=== PATIENT | male | born 1955 | race Caucasian/White ===

== ENCOUNTER 2022-01-24 16:10 | Outpatient (CLI) | payer MEDICARE, BC, SELFPAY ==
--- OUTSIDE RECORDS SUMMARY | 2022-01-24 09:35 | XMS_ITS | Encounter Summary ---
:1955 Author Organization [facility] Address [address] [place] [address] Care Team Providers Name Role Phone Unavailable Primary Care Provider Unavailable Reason for Referral Outpatient (Routine) - Closed Specialty Diagnoses / Procedures Referred By Contact Refer red To Contact Urology Manjeet Watts M.D. [facility] [address] [place] [address] [phone] Referral ID Status Reason Start Date Expiration Date Visits Requ ested Visits Authorized [id number] Closed 02/02/2021 02/02/2022 1 1 Scheduling Instructions Interested in surgery Encounter Details Date Type Department Care Team Description 02/02/2021 Orders Only Department of Urology in Carlita Watts M.D. [place], [place] [address] [place] [address] [place] [phone] (Wo rk) Social History Tobacco Use Types Packs/Day Years Used Date Smoking Tobacco: Never Smokeless Tobacco: Never Sex Assigned at Date Recorded Not on file documented as of this encounter Plan of Treatment Upcoming Encounters Date Type Specialty Care Team Description 01/30/2022 Clinical Communication Admitting/Central Scheduling 02/01/2022 Appointment Radiology Michael Unger D.O., M.S. [address] [place] [phone] 02/01/2022 Comprehensive Visit Orthopedic Surgery Michael Unger D.O., M.S. [address] [place] [address] Scheduled Referrals Name Type Priority Associated Diagnoses [facility] Outpatient Referral Routine Expect ed: visit (clinic) 02/02/2021 (Approximate), Expires: 02/03/2024 documented as of this encounter Visit Diagnoses Not on filedocumented in this encounter
--- OUTSIDE RECORDS SUMMARY | 2022-01-24 09:35 | XMS_ITS | Encounter Summary ---
:1955 Author Organization [facility] Address [address] [place] [address] Care Team Providers Name Role Phone Unavailable Primary Care Provider Unavailable Reason for Referral Outpatient (Routine) - Authorized Specialty Diagnoses / Procedures Referred By Contact Refer red To Contact Diagnoses Pain Wrist Right Michael Unger D.O., M.S. [facility] Procedures DX Wrist Right 2 Views [address] [place] [address] [phone] Referral ID Status Reason Start Date Expiration Date Visits V isits Requested Authorized [id number] Authorized 01/11/2022 01/11/2023 1 1 Encounter Details Date Type Department Care Team Description 01/11/2022 Orders Only Department of Michael Unger, Pain Wrist R ight Orthopedic Surgery in Hermila M.S. (Primary Dx) [place], [place] [address] [place] [address] [place] [phone] Social History Tobacco Use Types Packs/Day Years Used Date Smoking Tobacco: Never Smokeless Tobacco: Never Sex Assigned at Date Recorded Not on file documented as of this encounter Plan of Treatment Upcoming Encounters Date Type Specialty Care Team Description 01/30/2022 Clinical Communication Admitting/Central Scheduling 02/01/2022 Appointment Radiology Michael Unger D.O., M.S. [address] [place] [phone] 02/01/2022 Comprehensive Visit Orthopedic Surgery Michael Unger D.O., M.S. [address] [place] [address] Scheduled Orders Name Type Priority Associated Diagnoses Order S chedule DX Wrist Right 2 Imaging RAD - Routine (most Pain Wrist Right Expected: Views inpatients and all 2 outpatients) (Approximate), Expires: 2022 documented as of this encounter Visit Diagnoses Diagnosis Pain Wrist Right - Primary documented in this encounter
--- OUTSIDE RECORDS SUMMARY | 2022-01-24 09:35 | XMS_ITS | Encounter Summary ---
:1955 Author Organization [facility] Address [address] [place] [address] Care Team Providers Name Role Phone Unavailable Primary Care Provider Unavailable Reason for Visit Outpatient (Routine) - Closed Specialty Diagnoses / Procedures Referred By Contact Refer red To Contact Urology Manjeet Watts M.D. [facility] [address] [place] [phone] Referral ID Status Reason Start Date Expiration Date Visits Requ ested Visits Authorized [id number] Closed 02/02/2021 02/02/2022 1 1 Encounter Details Date Type Department Care Team Description 03/20/2021 Office Visit Department of Urology Khari Parisi Primar y Malignant in [place] Neoplasm Of Prostate [place] [address] [place] [address] (HCC) (Primary Dx) [address] [place] [phone] Social History Tobacco Use Types Packs/Day Years Used Date Smoking Tobacco: Never Smokeless Tobacco: Never Sex Assigned at Date Recorded Not on file documented as of this encounter H&P Notes Louise Lopez D.N.P., R.N. - 03/20/2021 3:30 PM CST SUBJECTIVE REQUESTING PROVIDER Manjeet Watts M.D. REASON FOR CONSULT Adenocarcinoma of the prostate, Patient seen on Dr. Mortensen service HISTORY OF PRESENT ILLNESS ??Mil??is a very pleasant 65-year-old gentleman who presents today for a 3rd opinion on management of his diagnosed favorable intermediate risk prostate malignancy. ??His urologic oncologic history is as follows: ?? 1.??May 31, 2014 PSA was 1.67 ?? 2.??Early 2020 PSA was 4.01 which was repeated and was 4.3 ?? 3.??June 20, 2020 Mr. Jaeger underwent a 12 core prostate biopsy locally. ??He was noted to have Haverhill 3 + 3 adenocarcinoma at the left lateral base, left lateral apex, and right lateral midgland samplings involving 70, 10, and 5% of the cores. ??He also had Haverhill 3 + 4 adenocarcinoma at the left base and left midgland samplings in 60 and 25% of the samples. ??There was perineural invasion noted at the left base sampling. ?? 4.??August 01, [address] of the abdomen pelvis which was negative for metastaticdisease. ??He was noted to have hepatic cysts. ?? 5.??Nuclear medicine bone scan August 16, 2020 was negative ?? 6.??August 22, 2020 patient had decipher testing which showed a score of 0.52 and placed him at intermediate risk for risk of progression (note this is after radical therapy in the form of either surgery or radiation. Not with surveillance). ?? 7.??Mr. Jaeger has had follow-up with his local urologist and a discussion was held on active surveillance. ??He is due to follow-up with his local urologist in 6 months. 8. He met with Dr. Watts 01/18/2021 for a second opinion on how to progress with treatment of his prostate cancer. Dr. Watts thought he would be an excellent surgical candidate for a RARP. Since his last visit here he did undergo a prostate MRI. This showed a 39 cc prostate gland and 2 concerning lesions for clinically significant prostate cancer. These lesions noted in the left posterior lateral base to mid gland peripheral zone and right posterior medial gland apex peripheral zone were assigned a PI-RADS 5 indicating very high likelihood of clinically significant cancer being present. Negative for lymph involvement and osseous lesions. He is scheduled for a RARP on 03/24/21 locally. He presents today for further discussion on treatmentoptions. He has not met with radiation oncology as they are looking to pursue surgery. He denies any significant lower urinary tract symptoms today. He does note that his urinary stream has gradually lessened in strength. He denies any urolithiasis, urinary tract infections, or prostatitis. He denies any urinary incontinence currently. He does endorse mild erectile dysfunction but is not treated for this currently. Patient reports that it is harder to achieve and maintain erections butthat he is able to be sexually active with his partner. He endorses nocturia x1. He also endorses some double voiding in the morning. He denies any fevers, chills, nausea, or vomiting. The following portions of the patient's history were reviewed and updated as appropriate: allergies,current medications, family history, medical history, social history, surgical history and problem list. OBJECTIVE PHYSICAL EXAM Constitutional: He appears well-developed and well-nourished. HENT: Head: Normocephalic. Eyes: Conjunctivae are normal. Pulmonary/Chest: Effort normal. Neurological: He is alert. Skin: Skin is warm. Psychiatric: He has a normal mood and affect. LABORATORY Lab Results Component Value Date PSA 5.6 (H) 01/18/2021 Lab Results Component Value Date CREATININE 1.14 05/18/2020 IMAGING EXAM: MR PROSTATE WITHOUT AND WITH IV CONTRAST ?? CLINICAL HISTORY: Jack score 3+4 prostate cancer.. Most Recent PSA 4.3 ng/mL in 2020 per EMR.. ?? PROSTATE: Volume: 39cc (PSA density 0.11) Exam quality: Good. Peripheral zone: Focal low signal intensity in the left posterior lateral base to mid gland (lesion 1). Poorly defined low signal intensity in the right posterior to posterior lateral mid gland to apex (lesion 2). Poorly defined underlying low signal intensity in the bilateral peripheral zone from medial gland to apex with mildly restricted diffusion (mean ADC value over 1000), PIRADS 2, which is abutting the external sphincter. Transition zone: Hyperplastic nodules. ?? Lesion # 1 Size: 1.6 x 1 x 1.8cm, 1.6cc Zone: Peripheral zone Location: Left posterior lateral at base to mid gland. (On image 2020 series 8) T2WI: Poorly defined focal low signal intensity (T2WI score 4) DWI: Moderate diffusion restriction. (ADC: 717, ) (DWI score 4) DCE: Positive. Overall category: PIRADS 5- Very high (clinically significant cancer is highly likely to be present). ?? Lesion # 2 Size: 1.2 x 0.8 x 1.5 cm, 0.6 cc Zone: Peripheral zone Location: Right posterior medial gland to apex extending to the left apex (on image 24 series 8) T2WI: Poorly defined low signal intensity (T2WI score 4) DWI: Mild diffusion restriction. (ADC: 830, ) (DWI score 4) DCE: Positive. Overall category: PIRADS 4- High (clinically significant cancer is likely to be present). ?? LOCAL STAGING: Capsule: Suspicious for capsular penetration on images 22 series 8 Neurovascular bundle invasion: Suspicious for neurovascular bundle invasion on images 22 series 8 Seminal vesicles invasion: Absent Other organ invasion: Poorly defined low signal intensity (PIRADS 2) is abutting the external sphincter. ?? LYMPH NODES: Negative for suspicious lymph node(s). ?? BONES: Negative for suspicious bone lesion(s). ?? OTHER FINDINGS: Sigmoid diverticulosis. Small fat-containing bilateral inguinal hernias. ?? PROSTATE MRI TECHNIQUE: PIRADS version 2.1 compliant. Multiparametric MRI of the prostate was performed at [address] with surface coil. High resolution T2WI, DWI/ADC, and DCE imaging with IV contrast performed. ?? IMPRESSION: PIRADS 5- Very high (clinically significant cancer is highly likely to be present). ASSESSMENT / PLAN #1 Primary malignant neoplasm of prostate It was a pleasure to meet Mr. Jaeger alongside Dr. Parisi in clinic today. We discussed that he hasa good plan in place to proceed with surgery locally. We discussed his MRI imaging and I reiterated the Jack scoring system. We discussed the 3 goals of surgery would be 1. oncologic control, 2. urologic control, and 3. Erectile function. Patient is in agreement and feels reassured after today's consultation in relation to treatment of his prostate cancer. He is going to proceed with surgery locally. All of his questions were answered to his satisfaction. Encouraged him to reach out in the future should he have any further urologic needs. ER AUTOMOTIVE TECHNICIAN Khari Parisi M.D. - 03/20/2021 3:30 PM CST #1 Primary Malignant Neoplasm Of Prostate (HCC) I have met the patient and discussed the issues at hand. I agree with the documentation provided by my colleague on the team. I have discussed the recommendations with the patient and answered all of the patient???s questions. Treatment options were discussed with the patient in detail including surgical and nonsurgical options, as well as active surveillance. Risks associated with surgery were discussed, including incontinence and impotence. The patient is interested in proceeding with surgery and will have it done locally. ER AUTOMOTIVE TECHNICIAN documented in this encounter Plan of Treatment Upcoming Encounters Date Type Specialty Care Team Description 01/30/2022 Clinical Communication Admitting/Central Scheduling 02/01/2022 Appointment Radiology Michael Unger D.O., M.S. [address] [place] [phone] 02/01/2022 Comprehensive Visit Orthopedic Surgery Michael Unger D.O., M.S. [address] [place] [address] documented as of this encounter Visit Diagnoses Diagnosis Primary Malignant Neoplasm Of Prostate ( HCC) - Primary documented in this encounter
--- OUTSIDE RECORDS SUMMARY | 2022-01-24 09:35 | XMS_ITS | Clinical Summary ---
:1955 Author Organization [employer] [email or web address] [place] [address] Care Team Providers Name Role Phone Guillaume Eason MD Primary Care Provider Allergies No known active allergies Medications Medication Sig Dispensed Refills Start Date End Date Status hydrochlorothiazide TAKE 1 TABLET BY 30 tablet 0 09/07/2015 Active (HCTZ) 25 mg MOUTH ONCE DAILY. tabletIndications: HTN (hypertension) simvastatin (ZOCOR) 20 Take 20 mg by 0 11/19/2019 Active mg tablet mouth at bedtime. acetaminophen (Tylenol Take 500-1,000 mg 0 Active Extra Strength) 500 mg by mouth every 6 tablet hours if needed. Max acetaminophen dose: 4000mg in 24 hrs. meloxicam 15 mg Take 1 Tablet (15 0 03/24/2021 Active tabletIndications: mg) by mouth once Prostate cancer (HC) daily. OK to resume taking 5 days after surgery if urine is clearing. oxyCODONE (ROXICODONE) 5 Take 1 Tablet (5 12 Tablet 0 03/24/20 21 Active mg immediate release mg) by mouth every tabletIndications: 4 hours if needed Prostate cancer (HC) for Pain. sennosides-docusate Take 1 Tablet by 30 Tablet 0 03/24/2021 Active (SENOKOT S) (8.6-50 mg) mouth 2 times tabletIndications: daily if needed Prostate cancer (HC) for Constipation. Active Problems Problem Noted Date Adenomatous colon polyp 07/08/2014 Overview: Colonoscopy 06/2014 polyps repeat in 5 ye ars Colonoscopy 01/2020 diverticulosis, repe at in 5 years Cervical stenosis of spinal canal 06/17/2014 Tendon laceration 03/12/2011 Lipoma of other skin and subcutaneous tissue 1 Resolved Problems Problem Noted Date Resolved Date S/P colonoscopy 01/02/2002 07/08/2014 Immunizations Name Administration Dates Next Due COVID-19 vaccine (Amiigo 02/16/2021, 07/05/2020, 30mcg/0.3mL) PF, MDV Influenza, IIV3 (Age >=3 years) 04/18/2012, 03/17/2007 Influenza, IIV4 04/10/2014 Tdap 03/08/2011 Family History Medical History Relation Name Comments Hypertension Brother 1 Cancer Brother 2 throat ca-non sm oker Heart Disease Father Other Father lung cancer Stroke Father TIA Hypertension Mother Stroke Mother hemorrhagic Relation Name Status Comments Brother 1 Brother 2 Father Mother Social History Tobacco Use Types Packs/Day Years Used Date Never Smoker Smokeless Tobacco: Never Used Tobacco Cessation: Counseling Given: Yes Alcohol Use Standard Drinks/Week Comments Yes 2.5 (1 standard drink = 0.6 oz pure alco hol) on weekends Alcohol Habits Answer Date Recorded How often do you have a drink containing 4 or more times a w mcgrath 05/25/2020 alcohol? How many drinks containing alcohol do you have 1 or 2 05/25/2020 on a typical day when you are drinking? How often do you have six or more drinks on one Never 05/25/2020 occasion? Comment: on weekends 05/31/2014 Sex Assigned at Date Recorded Not on file Obstetrics History Last Filed Vital Signs Vital Sign Reading Time Taken Comments Blood Pressure 137/76 03/25/2021 7:51 AM DYE WORKER Pulse 93 03/25/2021 7:51 AM DYE WORKER Temperature 36.9 ??C (98.5 ??F) 03/25/2021 7:51 AM DYE WORKER Respiratory Rate 16 03/25/2021 10:00 AM DYE WORKER Oxygen Saturation 91% 03/25/2021 10:00 AM DYE WORKER Inhaled Oxygen Concentration - - Weight 95.7 kg (211 lb) 03/24/2021 10:00 AM DYE WORKER Height 182.9 cm (6') 03/24/2021 10:00 AM DYE WORKER Body Mass Index 28.62 03/24/2021 10:00 AM DYE WORKER Plan of Treatment Health Maintenance Due Date Last Done Comments Depression screening for age 12+ 1965 BMI (ht and wt on same day) for 09/23/1971 age 18+ Zoster (shingles) series for age 0609/23/2003 50+ (1 of 2) Medicare Wellness for age 65+ 2018 Pneumococcal series for age 65+ (1 2018 - PCV) Lipids for age 45-75 05/31/2019 05/31/2014, 08/13/2011 Tetanus booster 03/08/2021 03/08/2011 COVID-19 vaccine series (4 - 06/19/2021 02/16/2021, 021, Booster for Pfizer series) 06/14/2020 Influenza for age 65+ 12/21/2021 04/10/2014, 04/18/2012, 03/17/2007 Colonoscopy through age 75 02/08/2025 02/09/2020, 0, 02/09/2020, Additional history exists Tdap Completed 03/08/2011 Hepatitis C screening for age Completed 05/31/2014 16-79 Results Not on filefrom Last 3 Months Insurance Payer Benefit Plan / Subscriber ID Effective Dates Phone Addre ss Type Group MEDICARE PART B MEDICARE PART B [id number] 2018-Presen ATTN: CLAIMS - HB USE ONLY HB ONLY t [address] [facility] [place] [phone] [place] [employer] [place] [id number] 2020-Presen [address] [address] [place], [place] MR PB ONLY [phone] [employer] [place] [place] [id number] 2020-[place] [address] [address] [place], [place] HB ONLY [id number] [phone] (Home) [place] [phone] Advance Directives Latest Code Status on File Code Status Date Activated Date Inactivated Comments Full Code 03/24/2021 9:36 AM 03/25/2021 6:55 PM Code Status Discussion: Unable to Assess Preferences, Provid er to review later Care Teams Jack Strip Assembler Relationship Specialty Start Date End Date Guillaume Eason MD PCP - General Family Practice 12/15/19 [address] [place] [address]
--- OUTSIDE RECORDS SUMMARY | 2022-01-24 09:35 | XMS_ITS | Encounter Summary ---
:1955 Author Organization [facility] Address [address] [place] [address] Care Team Providers Name Role Phone Unavailable Primary Care Provider Unavailable Encounter Details Date Type Department Care Team Description 12/16/2020 [facility] Malignant AND DOTTIE Carcamo M.D. Neoplasm Of Prostate 1999 [facility] [address] [facility] (HCC) (Primary Dx) [place] [address] [place], [place] [phone] [address] Social History Tobacco Use Types Packs/Day Years Used Date Smoking Tobacco: Never Assessed Sex Assigned at Date Recorded Not on file documented as of this encounter Plan of Treatment Upcoming Encounters Date Type Specialty Care Team Description 01/30/2022 Clinical Communication Admitting/Central Scheduling 02/01/2022 Appointment Radiology Michael Unger D.O., M.S. [address] [place] [address] 02/01/2022 Comprehensive Visit Orthopedic Surgery Michael Unger D.O., M.S. [address] [place] [phone] documented as of this encounter Visit Diagnoses Diagnosis Primary Malignant Neoplasm Of Prostate ( HCC) - Primary documented in this encounter
--- OUTSIDE RECORDS SUMMARY | 2022-01-24 09:35 | XMS_ITS | Encounter Summary ---
:1955 Author Organization [facility] Address [address] [place] [address] Care Team Providers Name Role Phone Unavailable Primary Care Provider Unavailable Reason for Visit Reason Comments Pre-scheduling Questionnaire Encounter Details Date Type Department Care Team Description 01/01/2022 Clinical Department of Prescheduling, Pre-scheduli ng Communication Orthopedic Surgery Provider Question naire in [place], [place] [address] [place] [phone] Social History Tobacco Use Types Packs/Day Years Used Date Smoking Tobacco: Never Smokeless Tobacco: Never Sex Assigned at Date Recorded Not on file documented as of this encounter Miscellaneous Notes Telephone Encounter - Tatianna Eisenberg - 01/01/2022 10:47 AM CDT Hand Pre-Scheduling Questionnaire documented in this encounter Plan of Treatment Upcoming Encounters Date Type Specialty Care Team Description 01/30/2022 Clinical Communication Admitting/Central Scheduling 02/01/2022 Appointment Radiology Michael Unger D.O., M.S. [address] [place] [phone] 02/01/2022 Comprehensive Visit Orthopedic Surgery Michael Unger D.O., M.S. [address] [place] [phone] documented as of this encounter Visit Diagnoses Not on filedocumented in this encounter
--- OUTSIDE RECORDS SUMMARY | 2022-01-24 09:35 | XMS_ITS | Clinical Summary ---
:1955 Author Organization [facility] Address [address] [place] [address] Care Team Providers Name Role Phone Unavailable Primary Care Provider Unavailable Source Comments Patient records contain information from all sites at [facility]. For routine questions regarding patient records, call [phone] during business hours, M-F 8:00 AM - 5:00 PM Central Time. Record requests for emergency care only can be directed to [phone] at any time.[facility] Allergies No known active allergies Encounters Date Type Specialty Care Team Description 01/11/2022 Orders Only Orthopedic Surgery Michael Unger, Pain Wr ist Right D.O., M.S. (Primary Dx) 01/01/2022 Clinical Orthopedic Surgery Prescheduling, [facility] Communication Provider Questionnaire from Last 3 Months Social History Tobacco Use Types Packs/Day Years Used Date Smoking Tobacco: Never Smokeless Tobacco: Never Sex Assigned at Date Recorded Not on file Last Filed Vital Signs Vital Sign Reading Time Taken Comments Blood Pressure - - Pulse 63 01/25/2021 8:55 AM CDT Temperature - - Respiratory Rate 16 01/25/2021 8:55 AM CDT Oxygen Saturation 97% 01/25/2021 8:55 AM CDT Inhaled Oxygen Concentration - - Weight 96.1 kg (211 lb 13.8 oz) 01/25/2021 7:00 AM CDT Height - - Body Mass Index - - Plan of Treatment Upcoming Encounters Date Type Specialty Care Team Description 01/30/2022 Clinical Communication Admitting/Central Scheduling 02/01/2022 Appointment Radiology Michael Unger, Jayne., M.S. [address] [place] [address] 02/01/2022 Comprehensive Visit Orthopedic Surgery Michael Unger D.O., M.S. [address] [place] [address] Health Maintenance Due Date Last Done Comments CT Colonography 1955 Cologuard 1955 Colonoscopy 1955 Colorectal Cancer Screening 1955 FIT 1955 Hepatitis C Screening 1955 Zoster Vaccines (1 of 2) 09/23/2003 Depression Screening (Annual 04/22/2021 PHQ-2) Fall Risk Screen (Annual) 04/22/2021 COVID-19 Vaccine (5 - Booster for 01/18/2022 11/23/2021, , Pfizer series) 07/05/2020, Additional history exists Influenza Vaccine (#1) 2022 03/21/2021, 02/06/2019, 02/25/2018, Additional history exists Creatinine Level 03/25/2022 03/25/2021, 05/18/2020 Potassium Level 03/25/2022 03/25/2021, 05/18/2020 Sodium Level 03/25/2022 03/25/2021, 05/18/2020 Fasting Glucose for Diabetes 03/25/2024 03/25/2021, 021 Screening DTaP,Tdap,and Td Vaccines (3 - Td 03/21/2031 03/21/2021, or Tdap) Pneumococcal vaccine (65+ years) Completed 12/11/2019, 01/2019 Insurance Payer Benefit Plan Subscriber ID Effective Phone Address Typ e / Group Dates MEDICARE MEDICARE A [id number] 2018-Pres [address] [place] [address] BLUE [employer]OSS [employer] [id number] 2020-Pres [phone] [address] Cost Share BLUE SHIELD BLUE COST ent [phone] [place] [address] [phone] (Home) [place] [phone]
--- OUTSIDE RECORDS SUMMARY | 2022-01-24 09:35 | XMS_ITS | Encounter Summary ---
:1955 Author Organization [facility] Address [address] [place] [address] Care Team Providers Name Role Phone Unavailable Primary Care Provider Unavailable Encounter Details Date Type Department Care Team Description 02/14/2021 Orders Only Department of Urology Manjeet Watts, Prim nichole Malignant in [facility] Neoplasm Of Prostate [place] 200 [facility] (HCC) (Primary Dx) 200 [place] [phone] Social History Tobacco Use Types Packs/Day Years Used Date Smoking Tobacco: Never Smokeless Tobacco: Never Sex Assigned at Date Recorded Not on file documented as of this encounter Plan of Treatment Upcoming Encounters Date Type Specialty Care Team Description 01/30/2022 Clinical Communication Admitting/Central Scheduling 02/01/2022 Appointment Radiology Michael Unger D.O., M.S. 200 [place] [address] 02/01/2022 Comprehensive Visit Orthopedic Surgery Michael Unger D.O., M.S. [address] [place] [phone] documented as of this encounter Visit Diagnoses Diagnosis Primary Malignant Neoplasm Of Prostate ( HCC) - Primary documented in this encounter
--- OUTSIDE RECORDS SUMMARY | 2022-01-24 09:35 | XMS_ITS | Encounter Summary ---
:1955 Author Organization [facility] Address [address] [place] [address] Care Team Providers Name Role Phone Unavailable Primary Care Provider Unavailable Encounter Details Date Type Department Care Team Description 02/01/2021 Documentation Department of Urology in Carlita Watts M.D. [place], [place] [address] [place] [address] [place] [phone] (Wo rk) Social History Tobacco Use Types Packs/Day Years Used Date Smoking Tobacco: Never Smokeless Tobacco: Never Sex Assigned at Date Recorded Not on file documented as of this encounter Progress Notes Manjeet Watts M.D. - 02/01/2021 6:00 PM CDT I spoke with Mr. 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 I recommended he pursue treatment. He will consider his options and let me know if he wishes to pursue surgery or requests radiation oncology consult. documented in this encounter Plan of Treatment Upcoming Encounters Date Type Specialty Care Team Description 01/30/2022 Clinical Communication Admitting/Central Scheduling 02/01/2022 Appointment Radiology Michael Unger D.O., M.S. [address] [place] [phone] 02/01/2022 Comprehensive Visit Orthopedic Surgery Michael Unger D.O., M.S. [address] [place] [phone] documented as of this encounter Visit Diagnoses Not on filedocumented in this encounter
--- OUTSIDE RECORDS SUMMARY | 2022-01-24 09:35 | XMS_ITS | Encounter Summary ---
:1955 Author Organization [facility] Address [address] [place] [address] Care Team Providers Name Role Phone Unavailable Primary Care Provider Unavailable Reason for Referral MRI/CAT/PET Scan (Routine) - Closed Specialty Diagnoses / Procedures Referred By Contact Refer red To Contact Radiology Diagnoses Primary Malignant Neoplasm Of Prostate (HCC) Manjeet Watts M.D. [facility] Procedures MR Prostate without and with IV Contrast 200 [place], [place] [phone] Referral ID Status Reason Start Date Expiration Date Visits Requ ested Visits Authorized [id number] Closed 01/18/2021 01/18/2022 1 1 Reason for Visit MRI/CAT/PET Scan (Routine) - Closed Specialty Diagnoses / Procedures Referred By Contact Refer red To Contact Radiology Diagnoses Primary Malignant Neoplasm Of Prostate (HCC) Manjeet Watts M.D. [facility] Procedures MR Prostate without and with IV Contrast 200 [place] [address] Referral ID Status Reason Start Date Expiration Date Visits Requ ested Visits Authorized [id number] Closed 01/18/2021 01/18/2022 1 1 Encounter Details Date Type Department Care Team Description 01/25/2021 Hospital Encounter Department of Manjeet Watts Primar y Malignant Radiology, Kimmy Corcoran Neoplasm Of Prostate [facility], in 200 [facility] (HCC) [place], [place] [address] [facility] [address] [place], [place] [phone] (Work) [phone] Social History Tobacco Use Types Packs/Day Years Used Date Smoking Tobacco: Never Smokeless Tobacco: Never Sex Assigned at Date Recorded Not on file documented as of this encounter Last Filed Vital Signs Vital Sign Reading Time Taken Comments Blood Pressure - - Pulse 63 01/25/2021 8:55 AM CDT Temperature - - Respiratory Rate 16 01/25/2021 8:55 AM CDT Oxygen Saturation 97% 01/25/2021 8:55 AM CDT Inhaled Oxygen Concentration - - Weight 96.1 kg (211 lb 13.8 oz) 01/25/2021 7:00 AM CDT Height - - Body Mass Index - - documented in this encounter Nursing Notes Mushtaq Lee R.N. - 01/25/2021 7:45 AM CDT Glucagon Administration Screening: Does patient have an allergy to glucagon or lactose (e.g. hives, difficulty breathing, anaphylaxis, necrolytic migratory erythema)? Note: nausea vomiting, bloating, and diarrhea are common and expected adverse effects of glucagon and/or lactose intolerance. NO If no???continue. Does patient have a history of insulinoma or phenochromocytoma? NO If no???continue. If yes, discusswith Radiologist. Does patient have diabetes? NO If no.. continue.. If yes??? initiate nurse initiated protocol to order POC blood glucose . If yes and insulin dependent, provide patient with Glucagon Injections if you Have Diabetes card. What is patient's glucose? Not diabetic - less than 70 treat f using Hypoglycemia Nurse Initiated Protocol - between 70 and 300 administer medication as ordered. - greater than 300 notify radiologist and do not administer medication. Is patient safe to receive Glucagon YES If yes.. Administer Glucagon as outlined in order. Does the patient need to remain NPO following scan for additional appointments today? NO Radiology Minimal Sedation Screening (Ativan) Is the patient 18 and older: YES if yes... continue If no, did Radiologists approve administration and was verbal consent obtained from parents? Able to take oral meds? YES If yes... continue Does the patient have a responsible adult accompanying them? YES - If yes: Name of accompanying adult Jailyn Phone number of accompanying adult [phone] Does patient have an allergy to lorazepam or other benzodiazepines? NO If no... continue Does patient have active respiratory issues? NO If no...continue If yes notify radiologist for direction prior to continuing. Has the patient taken any other benzodiazepines, antidepressants, or sedating medications today? NO If no...continue If yes, ask how long they have been taking the medication(s) and notify radiologist for direction prior to continuing. Does patient have a hx of narrow angle glaucoma or gaging or choking? NO If no... Continue If yes notify radiologist for direction prior to continuing. Is patient scheduled for a MR proctogram or neuro functional MR? NO if no... continue Is the patient scheduled for a MR guided breast biopsy? NO - if yes, obtain consent prior to administration. Is patient or ? NO If no... continue Does patient have other appointments today that may require attention to detail or informed consent?NO If no... continue If yes, call other area to determine if administration is ???ok?? . documented in this encounter Plan of Treatment Upcoming Encounters Date Type Specialty Care Team Description 01/30/2022 Clinical Communication Admitting/Central Scheduling 02/01/2022 Appointment Radiology Michael Unger D.O., M.S. [address] [place] [phone] 02/01/2022 Comprehensive Visit Orthopedic Surgery Michael Unger D.O., M.S. [address] [place] [phone] documented as of this encounter Procedures Procedure Name Priority Date/Time Associated Comments Diagnosis MR PROSTATE RAD - Routine 01/25/2021 8:51 Primary Malignant Result s for this WITHOUT AND WITH (most inpatients AM CDT Neoplasm Of procedu re are in IV CONTRAST and all Prostate (HCC) the results outpatients) section. documented in this encounter Results MR Prostate without and with IV Contrast (01/25/2021 8:51 AM CDT) Anatomical Region Laterality Modality Pelvis, Abdominal RST LOS, Abdominal ARZ LOS, Abdominal N/A Magnetic Resonance FLA LOS Specimen (Source) Anatomical Collection Method Collection Time Re ceived Time Location / / Volume Laterality 01/25/2021 9:18 AM CDT Impressions 01/25/2021 10:27 AM CDT PIRADS 5- Very high (clinically significant cancer is highly likely to be present). Narrative 01/25/2021 10:27 AM CDT EXAM: MR PROSTATE WITHOUT AND WITH IV CONTRAST CLINICAL HISTORY: Butler score 3+4 pros birch cancer.. Most Recent PSA 4.3 ng/mL in 2020 per EMR.. PROSTATE: Volume: 39cc ?(PSA density 0.11) Exam quality: Good. Peripheral zone: Focal low signal intens ity in the left posterior lateral base to mid gland (lesion 1). Poorly defined low signal intensity in the right posterior to posterior lateral mid gland to apex (lesion 2). Poorly defined underlying low signal intensity in the b ilateral peripheral zone from medial gland to apex with mildly restricted dif fusion (mean ADC value over 1000), PIRADS 2, which is abutting the external sphincter. Transition zone: Hyperplastic nodules. Lesion # 1 Size: 1.6 x 1 x 1.8cm, 1.6cc Zone: Peripheral zone Location: Left posterior lateral at base to mid gland. (On image 1 series 8) T2WI: Poorly defined focal low signal in tensity (T2WI score 4) DWI: Moderate diffusion restriction. (AD C: 717, ) (DWI score 4) DCE: Positive. Overall category: PIRADS 5- Very high (c linically significant cancer is highly likely to be present). Lesion # 2 Size: 1.2 x 0.8 x 1.5 cm, 0.6 cc Zone: Peripheral zone Location: Right posterior medial gland t o apex extending to the left apex (on image 24 series 8) T2WI: Poorly defined low signal intensit y (T2WI score 4) DWI: Mild diffusion restriction. (ADC: 8 30, ) (DWI score 4) DCE: Positive. Overall category: PIRADS 4- High (clinic ally significant cancer is likely to be present). LOCAL STAGING: Capsule: Suspicious for capsular penetra tion on images 22 series 8 Neurovascular bundle invasion: Suspiciou s for neurovascular bundle invasion on images 22 series 8 Seminal vesicles invasion: Absent Other organ invasion: ??Poorly defined l ow signal intensity (PIRADS 2) is abutting the external sphincter. LYMPH NODES: Negative for suspicious lym ph node(s). BONES: Negative for suspicious bone lesi on(s). OTHER FINDINGS: Sigmoid diverticulosis. Small fat-containing bilateral inguinal hernias. PROSTATE MRI TECHNIQUE: PIRADS version 2 .1 compliant. Multiparametric MRI of the prostate was performed at [address] [facility] with s urface coil. High resolution T2WI, DWI/ADC, and DCE imaging with IV contras t performed. Procedure Note Del Rodriguez M.D. - 01/25/2021 EXAM: MR PROSTATE WITHOUT AND WITH IV CO NTRAST CLINICAL HISTORY: Butler score 3+4 pros birch cancer.. Most Recent PSA 4.3 ng/mL in 2020 per EMR.. PROSTATE: Volume: 39cc (PSA density 0.11) Exam quality: Good. Peripheral zone: Focal low signal intens ity in the left posterior lateral base to mid gland (lesion 1). Poorly defined low signal intensity in the right posterior to posterior lateral mid gland to apex (lesion 2). Poorly defined underlying low signal intensity in the b ilateral peripheral zone from medial gland to apex with mildly restricted dif fusion (mean ADC value over 1000), PIRADS 2, which is abutting the external sphincter. Transition zone: Hyperplastic nodules. Lesion # 1 Size: 1.6 x 1 x 1.8cm, 1.6cc Zone: Peripheral zone Location: Left posterior lateral at base to mid gland. (On image 2020 series 8) T2WI: Poorly defined focal low signal in tensity (T2WI score 4) DWI: Moderate diffusion restriction. (AD C: 717, ) (DWI score 4) DCE: Positive. Overall category: PIRADS 5- Very high (c linically significant cancer is highly likely to be present). Lesion # 2 Size: 1.2 x 0.8 x 1.5 cm, 0.6 cc Zone: Peripheral zone Location: Right posterior medial gland t o apex extending to the left apex (on image 24 series 8) T2WI: Poorly defined low signal intensit y (T2WI score 4) DWI: Mild diffusion restriction. (ADC: 8 30, ) (DWI score 4) DCE: Positive. Overall category: PIRADS 4- High (clinic ally significant cancer is likely to be present). LOCAL STAGING: Capsule: Suspicious for capsular penetra tion on images 22 series 8 Neurovascular bundle invasion: Suspiciou s for neurovascular bundle invasion on images 22 series 8 Seminal vesicles invasion: Absent Other organ invasion: Poorly defined low signal intensity (PIRADS 2) is abutting the external sphincter. LYMPH NODES: Negative for suspicious lym ph node(s). BONES: Negative for suspicious bone lesi on(s). OTHER FINDINGS: Sigmoid diverticulosis. Small fat-containing bilateral inguinal hernias. PROSTATE MRI TECHNIQUE: PIRADS version 2 .1 compliant. Multiparametric MRI of the prostate was performed at [address] [facility] with s urface coil. High resolution T2WI, DWI/ADC, and DCE imaging with IV contras t performed. IMPRESSION: PIRADS 5- Very high (clinically signific ant cancer is highly likely to be present). Manjeet ROLAND MRI PROCEDURES documented in this encounter Visit Diagnoses Diagnosis Primary Malignant Neoplasm Of Prostate ( HCC) documented in this encounter Administered Medications Inactive Administered Medications - up to 3 most recent administrations Medication Order MAR Action Action Date Dose Rate Site gadoterate meglumine 0.5 mmol/mL Given 01/25/2021 8:45 AM CDT 20 mL (376.9 mg/mL) injection 1.6-20 mL (DOTAREM) 1.6-20 mL, intravenous, Once in imaging, contrast, Starting on Sat01/25/21 at 0744, For 1 dose, Imaging Protocol Orders, Dose per Radiant Medication Guidelines glucagon injection 0.5-1 mg Given 01/25/2021 8:25 AM CDT 1 mg Left Upper Arm (GlucaGen) (Back) 0.5-1 mg, subcutaneous, Once, On Sat01/25/21 at 0745, For 1 dose, Imaging Protocol Orders LORazepam tablet 0.5 mg (ATIVAN) Given 01/25/2021 7:55 AM CDT 1 mg 0.5 mg, sublingual, As needed, anxiety, Starting on Sat01/25/21 at 0744, For 4 doses, Imaging Protocol Orders, 1 mg by mouth once as needed for anxiety related to radiology study. May administer 0.5 mg dose if patient prefers. May repeat every 15 minutes if anxiety persists (2 mg maximum dose). sodium chloride (PF) 0.9 % injection 1-1 00 mL Given 01/25/2021 8:45 AM CDT 20 mL 1-100 mL, intravenous, Once, On Sat01/25/21 at 0745, For 1 dose, Imaging Protocol Orders documented in this encounter
--- OUTSIDE RECORDS SUMMARY | 2022-01-24 09:35 | XMS_ITS | Encounter Summary ---
:1955 Author Organization [facility] Address [address] [place] [address] Care Team Providers Name Role Phone Unavailable Primary Care Provider Unavailable Reason for Visit Reason Comments Phone Contact Encounter Details Date Type Department Care Team Description 01/30/2021 Clinical Communication Department of Urology Keith Watts, Phone Contact in [facility] [address] [facility] [address] [place] [phone] Social History Tobacco Use Types Packs/Day Years Used Date Smoking Tobacco: Never Smokeless Tobacco: Never Sex Assigned at Date Recorded Not on file documented as of this encounter Miscellaneous Notes Telephone Encounter - Rosalina Betts - 01/30/2021 11:43 AM CDT Patient calling because he missed your call last week. He said he is not available today to get a call as he is flying home from [place]. Please call him tomorrow. Best number to call is [phone] Thank you documented in this encounter Plan of Treatment Upcoming Encounters Date Type Specialty Care Team Description 01/30/2022 Clinical Communication Admitting/Central Scheduling 02/01/2022 Appointment Radiology Michael Unger D.O., M.S. [address] [place] [phone] 02/01/2022 Comprehensive Visit Orthopedic Surgery Michael Unger D.O., M.S. [address] [place] [phone] documented as of this encounter Visit Diagnoses Not on filedocumented in this encounter
--- OUTSIDE RECORDS SUMMARY | 2022-01-24 09:35 | XMS_ITS | Encounter Summary ---
:1955 Author Organization [facility] Address [address] [place] [address] Care Team Providers Name Role Phone Unavailable Primary Care Provider Unavailable Encounter Details Date Type Department Care Team Description 12/19/2020 [facility] Malignant AND DOTTIE Carcamo M.D. Neoplasm Of Prostate 1999 [facility] [address] [email or web address]] (HCC) (Primary Dx) [place] [address] [place], [place] [phone] [address] Social History Tobacco Use Types Packs/Day Years Used Date Smoking Tobacco: Never Smokeless Tobacco: Never Sex Assigned at Date Recorded Not on file documented as of this encounter Plan of Treatment Upcoming Encounters Date Type Specialty Care Team Description 01/30/2022 Clinical Communication Admitting/Central Scheduling 02/01/2022 Appointment Radiology Michael Unger D.O., M.S. [address] [place] [phone] 02/01/2022 Comprehensive Visit Orthopedic Surgery Michael Unger D.O., M.S. [address] [place] [phone] documented as of this encounter Visit Diagnoses Diagnosis Primary Malignant Neoplasm Of Prostate ( HCC) - Primary documented in this encounter
--- OUTSIDE RECORDS SUMMARY | 2022-01-24 09:35 | XMS_ITS | Encounter Summary ---
:1955 Author Organization [facility] Address [address] [place] [address] Care Team Providers Name Role Phone Unavailable Primary Care Provider Unavailable Reason for Referral MRI/CAT/PET Scan (Routine) - Closed Specialty Diagnoses / Procedures Referred By Contact Refer red To Contact Radiology Diagnoses Primary Malignant Neoplasm Of Prostate (HCC) Manjeet Watts M.D. [facility] Procedures MR Prostate without and with IV Contrast [place], [place] [id number] Referral ID Status Reason Start Date Expiration Date Visits Requ ested Visits Authorized [id number] Closed 01/18/2021 01/18/2022 1 1 Reason for Visit Appointment Request (Routine) - Closed Specialty Diagnoses / Procedures Referred By Contact Refer red To Contact Urology Diagnoses Primary Malignant Neoplasm Of Prostate (HCC) Referral ID Status Reason Start Date Expiration Date Visits Requ ested Visits Authorized [id number] Closed 08/28/2020 08/28/2021 1 1 Encounter Details Date Type Department Care Team Description 01/18/2021 Comprehensive Visit Department of Manjeet Watts Prima ry Malignant Neoplasm Of Prostate (HCC) (Primary Dx); Urology in [place] Herniorrhaphy Inguinal Status Post; [place], [facility] [place], [place] [address] [facility] [id number] [place], [place] [phone] (Work) [phone] Social History Tobacco Use Types Packs/Day Years Used Date Smoking Tobacco: Never Smokeless Tobacco: Never Sex Assigned at Date Recorded Not on file documented as of this encounter H&P Notes Tatianna Valadez APRN, C.N.P. - 01/18/2021 9:00 AM CDT SUBJECTIVE REASON FOR CONSULT Adenocarcinoma of the prostate HISTORY OF PRESENT ILLNESS Mr. Jaeger is a very pleasant 65-year-old gentleman who presents to Dr. Watts's clinic today for a2nd opinion on management of his newly diagnosed favorable intermediate risk prostate malignancy. His urologic oncologic history is as follows: 1. May 31, 2014 PSA was 1.67 2. Early 2020 PSA was 4.01 which was repeated and was 4.3 3. June 20, 2020 patient underwent a 12 core prostate biopsy locally. He was noted to have Jack 3+ 3 adenocarcinoma at the left lateral base, left lateral apex, and right lateral midgland samplingsinvolving 70, 10, and 5% of the cores. He also had Winchester 3 + 4 adenocarcinoma at the left base andleft midgland samplings in 60 and 25% of the samples. There was perineural invasion noted at the left base sampling. 4. August 01, [address] of the abdomen pelvis which was negative for metastatic disease. He was noted to have hepatic cysts. 5. Nuclear medicine bone scan August 16, 2020 was negative 6. August 22, 2020 patient had decipher testing which showed a score of 0.52 and placed him at intermediate risk. 7. Patient has had follow-up with his local urologist and a discussion was held on active surveillance. He is due to follow-up with his local urologist in 6 months. He has not visited with a radiation oncologist. Patient denies any history of prior radiation therapy. He does not take any aspirin-containing products. He does take 2 Advil at night to help with his musculoskeletal complaints. Patient has not had any MRI imaging of the prostate. He denies hesitancy. He does note a gradual slowing of his urinary stream. He denies urolithiasis, urinary tract infections, or prostatitis. Patientdenies urinary incontinence. He describes mild erectile dysfunction but does not treat this. He states that it is little harder to achieve and maintain. He denies fevers, chills, nausea, or vomiting. The following portions of the patient's history were reviewed and updated as appropriate: allergies,current medications, family history, medical history, social history, surgical history and problem list. REVIEW OF SYSTEMS Genitourinary: Positive for erectile dysfunction. The following systems were negative: Constitutional, Skin, Eyes, ENT, CV, Respiratory, GI, , Musculoskeletal, Neuro Past Medical History: Diagnosis Date ??? Fracture Rib Multiple Closed Initial Bilateral from fall approximately 1 year ago ??? Hyperlipidemia ??? Hypertension NOS ??? Primary Malignant Neoplasm Of Prostate (HCC) 06/20/2020 Jack 3+4 prostate ca with PSA 4 range ??? Snoring Past Surgical History: Procedure Laterality Date ??? BUNIONECTOMY Left ??? CATARACT EXTRACTION, BILATERAL ??? EXCISION LIPOMA multiple on trunk, hips arms ??? LAPAROSCOPIC INGUINAL HERNIA REPAIR Right ??? PROSTATE BIOPSY 06/20/2020 SOCIAL HISTORY Retired [employer] Lifelong non-smoker ETOH: Few drinks a few times per month. FAMILY HISTORY Maternal uncle is alive at age 83 or 84. He was diagnosed with prostate cancer in his low 60s and underwent brachytherapy. He has recently been found to have biochemical recurrence and is being followed locally. Patient denies any family history of lethal prostate cancer. He does noted younger brother has elevated PSA and is being followed. His older brother is status post what sounds to be TURP and tissue samplings were benign for malignancy. Patient denies any other family history of genitourinary malignancies. OBJECTIVE PHYSICAL EXAM Constitutional: He is oriented to person, place, and time. He appears well- developed and well-nourished. HENT: Head: Normocephalic. Eyes: No scleral icterus. Pulmonary/Chest: Effort normal. Abdominal: Abdomen does not display distension. Musculoskeletal: He exhibits no tenderness. Neurological: He is alert and oriented to person, place, and time. Skin: No rash noted. Psychiatric: He has a normal mood and affect. His behavior is normal. Judgment and thought content normal. Rectum: With good sphincter tone Prostate: Approximately 40-50 g in size which is without nodularity or areas of induration. This is nontender to palpation. LABORATORY Lab Results Component Value Date PSA 5.6 (H) 01/18/[address] of the abdomen and pelvis August 01, 2020: Negative for metastatic disease. He is noted tohave hepatic cysts. Outside nuclear medicine bone scan August 16, 2020: Negative for bony metastasis. He is noted to havemultiple rib fractures that are healing. ASSESSMENT / PLAN #1 Winchester 3 + 4, clinical T1c adenocarcinoma the prostate with prebiopsy PSA in the 4 range It was my pleasure to meet Mr. Jaeger in conjunction with Dr. Watts. We discussed his diagnosis andprognosis in detail. We reviewed his outside electronic records. I reiterated the Jack scoring system. Patient is noted to have a favorable intermediate risk prostate malignancy on tissue samplings from outside biopsy June 20, 2020. We discussed his treatment options include active surveillance, radiation therapy, or surgical intervention. I reviewed our active surveillance protocol. Patient has not had MRI imaging of the prostateto date. He did have a negative nuclear medicine bone scan as well as CT of the abdomen and pelvis in July 2020 as noted above. He also had a decipher test which placed him at intermediate risk. I reviewed that there is an 18% chance of metastasis while watching intermediate risk disease over 15 years. We briefly discussed radiation therapy and the quality of life changes that occur with that. Patienthas not visited with a radiation oncologist. If he has any interest in visiting with our radiation oncology team we would be happy to facilitate an appointment for him. We had a detailed discussion regarding the roger and post operative education of a open and robotic radical prostatectomy. He was informed that the goals of surgery would be (1) oncological control (2)maintain his ability to control his urine and (3) to preserve erectile function. We discussed the quality of life changes that occur with surgical intervention that include urinary incontinence as wellas erectile dysfunction. The risks, benefits, and alternatives were discussed as well as the perioperative period with the patient which include infection, bleeding, damage to adjacent organs as well as risk of anesthesia which are but not limited to stroke, blood clots, myocardial infarction, or even . He was educated to cease any aspirin or NSAIDs 7-10 days prior to the procedure. I reviewed hospitalization stay is 1-2 nights. I discussed that he would have an indwelling Edward catheter for 7-10 days postoperatively. We discussed lifting restrictions which is nothing greater than 10 lb for 6 weeks. Patient would need a JIMMY, EKG, preoperative blood work, COVID PCR nasal swab and listing appointment if he would decide to proceed with surgery. Please see Dr. Watts's note for full details on discussion and plan of care. Contact information was provided. Signed by: Tatianna Valadez APRN, C.N.PMaykel 01/18/2021 10:09 AM CDT Manjeet Watts M.D. - 01/18/2021 9:00 AM CDT Chief complaint: Prostate cancer History of present illness Mr. Jaeger is a very pleasant 65-year-old gentleman who presents today for a 2nd opinion on management of his newly diagnosed favorable intermediate risk prostate malignancy. His urologic oncologic history is as follows: ?? 1. May 31, 2014 PSA was 1.67 ?? 2. Early 2020 PSA was 4.01 which was repeated and was 4.3 ?? 3. June 20, 2020 Mr. Jaeger underwent a 12 core prostate biopsy locally. He was noted to have Jack 3 + 3 adenocarcinoma at the left lateral base, left lateral apex, and right lateral midgland samplings involving 70, 10, and 5% of the cores. He also had Jack 3 + 4 adenocarcinoma at the left base and left midgland samplings in 60 and 25% of the samples. There was perineural invasion noted at the left base sampling. ?? 4. August 01, [address] of the abdomen pelvis which was negative for metastatic disease. He was noted to have hepatic cysts. ?? 5. Nuclear medicine bone scan August 16, 2020 was negative ?? 6. August 22, 2020 patient had decipher testing which showed a score of 0.52 and placed him at intermediate risk for risk of progression (note this is after radical therapy in the form of either surgery orradiation. Not with surveillance). ?? 7. Mr. Jaeger has had follow-up with his local urologist and a discussion was held on active surveillance. He is due to follow-up with his local urologist in 6 months. He presents today for discussion of management options. His PSA today is 5.6 per Mr. Jaeger has not had any MRI imaging of the prostate. He has mild slowing of his stream but has no other irritative or obstructive voiding symptoms. He does note mild erectile dysfunction that he does not currently treat. He states that his erections are a bit harder to achieve and maintain. The following portions of the patient's history were reviewed and updated as appropriate: allergies,current medications, family history, medical history, social history, surgical history and problem list. Past Medical History: Diagnosis Date ??? Fracture Rib Multiple Closed Initial Bilateral from fall approximately 1 year ago ??? Hyperlipidemia ??? Hypertension NOS ??? Primary Malignant Neoplasm Of Prostate (HCC) 06/20/2020 Jack 3+4 prostate ca with PSA 4 range ??? Snoring Past Surgical History: Procedure Laterality Date ??? BUNIONECTOMY Left ??? CATARACT EXTRACTION, BILATERAL ??? EXCISION LIPOMA multiple on trunk, hips arms ??? LAPAROSCOPIC INGUINAL HERNIA REPAIR Right ??? PROSTATE BIOPSY 06/20/2020 SOCIAL HISTORY Retired [employer] Lifelong non-smoker ETOH: Few drinks a few times per month. METS >4, ECOG 0 ?? FAMILY HISTORY -Maternal uncle is alive at age 83 or 84. He was diagnosed with prostate cancer in his low 60s and underwent brachytherapy. He has recently been found to have biochemical recurrence and is being followed locally. -No family history of lethal prostate cancer. -He does note younger brother has elevated PSA and is being followed. His older brother is status post what sounds to be TURP and tissue samplings were benign for malignancy. Medications: No anticoagulation (2 advil at night) Review of Systems: Constitutional: No fever, fatigue, anorexia, night sweats. HEENT: No vision changes or abnormal changes in smell, no headaches. Resp: No shortness of breath or cough. Cardio: No chest pain, palpitations. GI: No abdominal pain, changes in bowel movement. : See HPI. MSK: No weakness, paresthesias, or joint pains. Neuro: No gait ataxia. Physical Exam General: No acute distress. HEENT: Anicteric. Normocephalic. Respiratory: Non-labored breathing. Abdomen: Soft. Nontender. Nondistended. Extremities: No rash or bruising. Neurologic: Gross motor activity intact. No ataxia. Skin: Intact. No bruising. Psych: Normal mood and affect. Answers questions appropriately. Assessment and Plan It was a pleasure to meet with Mr. Jaeger for discussion of management of his prostate cancer. Based on PSA and his pathology, he would fall into a intermediate risk group. He has not had an MRI of the prostate to characterize the local regional extent of his disease. We reviewed options for management including surveillance, radiation, and surgery. The risks and benefits of these procedures were reviewed with the patient. Oncologic outcomes associated with procedures were also reviewed. Given his excellent functional status, lack of significant competing health risks, and intermediate risk disease, I would recommend some form of active treatment. I did caution him that the DECIPHER test which he had done indicates risk for progression after radical treatment, not while on active surveillance. Therefore his intermediate risk status for progression is based on if he were to proceed with some form of active treatment as opposed active surveillance. Similar would be the case for prostate cancer related mortality. He would be an excellent candidate for robotic radical prostatectomy with bilateral pelvic lymph node dissection as we would achieve good cancer control as well as have good opportunity to preserve hisfunctional status. Moreover, I reviewed that with some prostate cancer disease states, multiple modalities of treatment inclusive of surgery, radiation, and hormone deprivation are often necessary to achieve durable cancer control. In this case, I would recommend surgery be sequenced first as in a large subset of patients, no additional therapy is needed, but in the event additional salvage therapiesare needed, there is less detriment to functional outcomes with radiation administered following surgery compared to if surgery were to follow radiation. We discussed risks, benefits, and alternatives to robotic assisted radical prostatectomy with pelviclymphadenectomy. Risks discussed included but were not limited to bleeding, infection, damage to surrounding structures, anesthesia, postoperative erectile dysfunction and stress urinary incontinence. The perioperative course was also discussed which would involve a catheter in place for between 7-10 days depending on whether bladder neck reconstruction was necessary. With respect to the functional outcomes, I do expect him to have excellent return of urinary controlwhich can take upwards of 1 year but should start being seen within a few months. We discussed the importance of Kegel exercises. With respect to erectile function, we would want an MRI to understand the local regional extent of his disease and the anatomic relationship to the neurovascular bundles. However, based on his biopsy, my presumption is that he would not have any evidence of extraprostatic extension in which case we will be performing a bilateral nerve-sparing, which would aid in recovery of his erectile function. We discussed that we would place him on low-dose tadalafil and encouraged intimacy to help support recovery of his erectile function. After discussion, he is leaning towards surgery but 1st would like to characterize the distribution of his disease with an MRI of the prostate. This is a very reasonable strategy as it will offer him more information regarding the distribution of his disease. I also offered him a consultation with Radiation Oncology. I will contact him with the results of the MRI. If he does elect to proceed with surgery, prior to surgery we will obtain the following: -Preoperative blood work in the form of CBC, BMP, PT, PTT -Pre-surgical COVID screening -JIMMY -Listing visit with me >45 minutes spent during consultation for [id number] counseling as well as and review of records and imaging documented in this encounter Plan of Treatment Upcoming Encounters Date Type Specialty Care Team Description 01/30/2022 Clinical Communication Admitting/Central Scheduling 02/01/2022 Appointment Radiology Michael Unger D.O., M.S. [address] [place] [address] 02/01/2022 Comprehensive Visit Orthopedic Surgery Michael Unger D.O., M.S. [address] [place] [address] documented as of this encounter Results MR Prostate without and [...] WITHOUT AND WITH IV CONTRAST CLINICAL HISTORY: Winchester score 3+4 pros birch cancer.. Most Recent [...] at base to mid gland. (On image 202 series 8) T2WI: Poorly defined focal low [...] AND WITH IV CO NTRAST CLINICAL HISTORY: Winchester score 3+4 pros birch cancer.. Most Recent [...] Neoplasm Of Prostate ( HCC) - Primary Herniorrhaphy Inguinal Status Post Dysfunction Erectile Primary Malignant Neoplasm Of Prostate ( HCC) documented in this encounter
--- OUTSIDE RECORDS SUMMARY | 2022-01-24 09:35 | XMS_ITS | Encounter Summary ---
:1955 Author Organization [facility] Address [address] [place] [address] Care Team Providers Name Role Phone Unavailable Primary Care Provider Unavailable Encounter Details Date Type Department Care Team Description 12/19/2020 Clinical Communication [facility] [place] [address] [facility] [address] [place] [phone] Social History Tobacco Use Types Packs/Day Years Used Date Smoking Tobacco: Never Smokeless Tobacco: Never Sex Assigned at Date Recorded Not on file documented as of this encounter Plan of Treatment Upcoming Encounters Date Type Specialty Care Team Description 01/30/2022 Clinical Communication Admitting/Central Scheduling 02/01/2022 Appointment Radiology Michael Unger D.O., M.S. [address] [place] [phone] 02/01/2022 Comprehensive Visit Orthopedic Surgery Michael Unger D.O., M.S. [address] [place] [phone] documented as of this encounter Results Urinalysis with Microscopic: Urine, Midstream (01/18/2021 6:21 AM CDT) [facility] Method Time Signature Source Urine, Urine, 01/18/2021 DTL Midstream 6:42 AM CDT Color, U Yellow 01/18/2021 DTL 6:42 AM CDT Clarity, U Clear 01/18/2021 DTL 6:42 AM CDT Protein, U 12 <26 mg/dL 01/18/2021 DTL 8:07 AM CDT Protein/Osmol 0.12 <0.42 01/18/2021 DTL ality ratio 8:23 AM CDT Predicted 24 130 mg/24 h 01/18/2021 DTL Hr Protein 8:23 AM CDT Predicted 41-408 mg/24 h 01/18/2021 DTL Range 8:23 AM CDT Specimen Anatomical Collection Method Collection Time Receive d Time (Source) Location / / Volume Laterality Urine (Urine, 01/18/2021 6:21 AM 01/19/20 6:42 Midstream) CDT AM CDT Manjeet Watts M.D. LAB URINE ORDERABLES Performing Organization Address [facility] Phon e Number [id number] [place] [address] [facility] (ABNORMAL) PSA (Prostate-Specific Antigen), Diagnostic (01/18/2021 6:16 AM CDT) P athologist Signature Prostate-Speci 5.6 (H) <=4.5 01/18/2021 DTL fic Ag ng/mL 7:37 AM CDT Comment: ----ADDITIONAL INFORMATION---- The testing method is an electrochemilum inescence assay manufactured by [employer] and performed on the Modular or Yannick system . Values obtained with different assay met hods or kits may be different and cannot be used inte rchangeably. Test results cannot be interpreted as ab solute evidence for the presence or absence of malignant disease. Specimen Anatomical Collection Method Collection Time Receive d Time (Source) Location / / Volume Laterality Blood (Blood, 01/18/2021 6:16 AM 01/19/20 6:37 Venous) CDT AM CDT Manjeet Watts M.D. LAB BLOOD ADD-ON Performing Organization Address [facility] Phon e Number [place] [phone] [place], [place] [address] [facility] [place] [address] documented in this encounter Visit Diagnoses Diagnosis Primary Malignant Neoplasm Of Prostate ( HCC) - Primary documented in this encounter
--- OUTSIDE RECORDS SUMMARY | 2022-01-24 09:36 | XMS_ITS ---
:1955 Author Care Team Providers Name Role Phone MARINA AGUERO MD Primary Care Provider [phone] Allergies Code Code System Name Reaction Severity Status Onset NKDA ? Medications Name Status Start Date Stop Date ? ? azithromycin 250 mg tablet Completed ? 08/18 cefdinir 300 mg capsule Completed ? 05/08/19 22 Take 1 capsule every 12 hours by oral route for 5 days. ceftriaxone 1 gram solution for injection Completed ? 08/18/2020 Take 1 g by injection route as needed. hydrochlorothiazide 25 mg tablet Active ? Not available TAKE 1 TABLET BY MOUTH EVERY DAY meloxicam 15 mg tablet Active ? Not avail able TAKE 1 TABLET BY MOUTH EVERY DAY oxycodone 10 mg tablet Completed ? 1 TAKE 1 TO 2 TABLETS BY MOUTH EVERY 4 HOURS oxycodone 5 mg tablet Completed ? 05/08/2021 prednisone 20 mg tablet Completed ? 08/19/19 21 simvastatin 20 mg tablet Active ? Not eleno ilable TAKE 1 TABLET BY MOUTH EVERYDAY AT BEDTIME tadalafil 5 mg tablet Active ? Not availa ble TAKE ONE TABLET BY MOUTH EVERY DAY Problems Name Status Onset Date Source ? Malignant Tumor of Prostate Active 05/08/2021 ? Procedures Date Name Performed by ? 03/24/2021 Prostatectomy, Laparoscopic, Robotic Inf ormation not available (Surg) 11/21/2019 Colonoscopy Information not avai lable 07/01/2020 CT, Abdomen + Pelvis, W/ Contrast [facility] Radiology Department [address] [place] [address] (Work Place) 08/10/2020 NM, Bone Scan, Whole Body [facility] Radiology Department [address], [place] [id number] (Work Place) Results Lab Results Date Name Specimen Result Interpretation Description Value Range Status Address ? 10/09/2021 PSA, Serum or ? PSA, Total <0.04 ng/ml ? ? Plasma 10/09/2021 PSA, Serum or ? No observation ? ? ? Plasma recorded. 07/03/2021 PSA, Serum or ? PSA, Total <0.04ng/mL ? ? Plasma 07/03/2021 PSA, Serum or ? No observation ? ? ? Plasma recorded. 12/13/2020 PSA, Serum or ? No observation ? ? ? Plasma recorded. Past Encounters 10/09/2021 Malignant Tumor of Prostate; Secondary E rectile Dysfunction Jack Bañuelos MD: [address], [place] [address], Ph. 07/31/2021 Secondary Erectile Dysfunction Jack Bañuelos MD: [address], [place] [address], Ph. 07/03/2021 Malignant Tumor of Prostate; Secondary E rectile Dysfunction Jack Bañuelos MD: [address], [place] [address], Ph. 05/08/2021 Carcinoma of Prostate Jack Bañuelos MD: [address], [place] [address], Ph. 04/05/2021 Acute Urinary Tract Infection Srini Jaime MD: [address], [place] [address], Ph. 02/27/2021 Malignant Tumor of Prostate Jack Bañuelos MD: [address], [place] [address], Ph. 12/20/2020 Malignant Tumor of Prostate Axel Orozco MD: [address], [place] [address], Ph. 09/09/2020 Malignant Tumor of Prostate Axel Orozco MD: [address], [place] [address], Ph. 08/18/2020 Malignant Tumor of Prostate Axel Orozco MD: [address], [place] [address], Ph. Social History Tobacco Smoking Status Never Smoker Vaccine List Vaccine Type COVID-19, mRNA, LNP-S, PF, 30 mcg/0.3 mL dose ([facility]) 06/14/2020 07/05/2020 02/16/2021 pneumococcal conjugate PCV 13 09/29/2018 pneumococcal polysaccharide PPV23 12/11/2019 Tdap 03/08/2011 Plan of Care Patient Instructions RTC by this afternoon if having issues with urinary retention. Reminders Provider Appointments None recorded. ? ? Lab None recorded. ? ? Referral None recorded. ? ? Procedures None recorded. ? ? Surgeries None recorded. ? ? Imaging None recorded. ? ? Vitals 10/09/2021 09:40AM ESTABLISHED 10 Height Weight BMI 6 ft 210 lbs 28.5 kg/m2 07/31/2021 03:30PM NEW PATIENT 10 Height Weight BMI 6 ft 210 lbs 28.5 kg/m2 07/03/2021 09:50AM ESTABLISHED 10 Height Weight BMI 6 ft 210 lbs 28.5 kg/m2 05/08/2021 11:00AM POST OP 10 Height Weight BMI 6 ft 210 lbs 28.5 kg/m2 02/27/2021 03:10PM ESTABLISHED 10 Height 6 ft 12/20/2020 03:00PM ESTABLISHED 10 Height Weight BMI 6 ft 215 lbs 29.2 kg/m2 09/09/2020 11:40AM ESTABLISHED 10 Height Weight BMI 6 ft 215 lbs 29.2 kg/m2 08/18/2020 04:00PM CA TALK Height Weight BMI 6 ft 215 lbs 29.2 kg/m2
[2022-01-24 11:45] LABS: Chloride* 105 mmol/L (96-114); Potassium* 4.8 mmol/L (3.6-5.1); Sodium* 139 mmol/L (135-149)
[2022-01-24 11:47] LABS: Bilirubin Total* 0.9 mg/dL (0.1-1.5); Carbon Dioxide* 30 mmol/L (20-32); Cholesterol* 160 mg/dL (90-199); Creatinine* 1.2 mg/dL (0.5-1.5); Estimated Glomerular Filt Rate 66 ml/min
[2022-01-24 11:48] LABS: Alanine Aminotransferase* 17 U/L (4-50); Alkaline Phosphatase* 48 U/L (40-150); Aspartate Amino Transferase* 22 U/L (12-35); Blood Urea Nitrogen* 21 mg/dL (7-30); Calcium* 9.4 mg/dL (8.4-10.6); Glucose* 107 mg/dL (60-115); Triglycerides* 131 mg/dL (40-149)
[2022-01-24 11:49] LABS: HDL Cholesterol* 37 mg/dL (>=40); LDL Cholesterol Calculated 97 mg/dL (<100)
[2022-01-25 13:07] LABS: Sex Hormone Binding Globulin 39 nmol/L (19-76); Testosterone, Adult Male 531 ng/dL (300-720); Testosterone, Free Calculation 92 pg/mL (47-244); Testosterone, Percentage Free 1.7 % (1.6-2.9)
== END 2022-01-24 16:11 | disposition home or self-care (01) ==
PROVIDERS: PCP Family Medicine; Visit Provider Family Medicine
DX: E78.00 Pure hypercholesterolemia, unspecified (principal); I10 Essential (primary) hypertension; R68.82 Decreased libido
CPT/HCPCS: 80053; 80061; 84270; 84402; 84403

== ENCOUNTER 2023-01-21 10:20 | Outpatient (CLI) | payer MEDICARE, BC, SELFPAY | END 2023-01-21 10:21 | disposition home or self-care (01) | PROVIDERS: PCP Family Medicine; Visit Provider Family Medicine | DX: Z00.00 Encounter for general adult medical examination without abnormal findings (principal); E78.00 Pure hypercholesterolemia, unspecified; I10 Essential (primary) hypertension; R68.82 Decreased libido | CPT/HCPCS: 80053; 80061 ==

== ENCOUNTER 2023-08-26 09:31 | Outpatient (CLI) | payer MEDICARE, BC, SELFPAY ==
--- OUTSIDE RECORDS SUMMARY | 2023-08-05 19:42 | XMS_ITS | Encounter Summary ---
Author Name Unknown Organization [facility] Address [address] [place] [id number] Care Team Providers Care Refractory Bricklayer Name Role Phone Elsewhere, Pcp Primary Care Provider Unavailabl e Reason for Referral * Outpatient (Routine) - Closed Specialty Diagnoses / Procedures Referred By Contac t Referred To Contact Diagnoses Pain Ankle Right Procedures DX Ankle Bilateral 3+ Views Simone Mcdaniels MPAS, P.A.-C., M.S. [address] [place] [address] [facility] Referral ID Status Reason Start Date Expiration Date Visits Re quested Visits Authorized [id number] Closed 05/13/2023 05/12/2024 1 1 LE INSTALLER Reason for Visit * Reason Onset Date Comments Pre-visit Testing Orders 05/10/2023 Encounter Details Date Type Department Care Team (Latest Contact Info) Description 05/10/2023 Clinical Communication Department of Orthopedic Surgery in [place], [place] [address] [place] [phone] Nabor Sorto III, M.D. [address] [place] [phone] Pre-visit Testing Orders Social History Tobacco Use Types Packs/Day Years Used Date Smoking Tobacco: Never Smokeless Tobacco: Never Alcohol Use Standard Drinks/Week Comments Yes 5 (1 standard drink = 0.6 oz pur e alcohol) [facility] Utilities Answer Date Recorded In the past 12 months has e electric, gas, oil, or water company threatened to shut off services in your home? No 05/14/2023 Humiliation, Afraid, Rape, and Kick questionnair e Answer Date Recorded Within the last year, have y ou been afraid of your partner or ex-partner? No 02/01/2022 Within the last year, have y ou been humiliated or emotionally abused in other ways by your partner or ex-partner? No Within the last year, have y ou been kicked, hit, slapped, or otherwise physically hurt by your partner or ex-partner? No 02/01/2022 Within the last year, have y ou been raped or forced to have any kind of sexual activity by your partner or ex-partner? No 02/01/2022 Social Connection and Isolat ion Panel [NHANES] Answer Date Recorded In a typical week, how many times do you talk on the phone with family, friends, or neighbors? More than three times a week 02/01/2022 How often do you get togethe r with friends or relatives? Three times a week 02/01/2022 How often do you attend [facility] or hinduism services? More than 4 times per year 02/01/2022 Do you belong to any clubs o r organizations such as orthodoxy groups, unions, fraternal or athletic groups, or school groups? Yes 02/01/2022 How often do you attend meet ings of the clubs or organizations you belong to? Patient declined 02/01/2022 Are you , , di vorced, , never , or living with a partner? 02/01/2022 AUDIT-C Answer Date Recorded Q1: How often do you have a drink containing alc ohol? 2-4 times a month 02/01/2022 Q2: How many drinks containi ng alcohol do you have on a typical day when you are drinking? 1 or 2 02/01/2022 Q3: How often do you have si x or more drinks on one occasion? Less than monthly 02/01/2022 Overall Financial Resource Strain (CARDIA) Answe r Date Recorded How hard is it for you to pa y for the very basics like food, housing, medical care, and heating? Not hard at all 02/01/2022 [facility] - Occupational Stress Questionnaire Answer Date Recorded Do you feel stress - tense, restless, nervous, or anxious, or unable to sleep at night because your mind is troubled all the time - these days? To some extent 02/01/2022 Exercise Vital Sign Answer Date Recorde d On average, how many days pe r week do you engage in moderate to strenuous exercise (like a brisk walk)? 7 days 05/14/2023 On average, how many minutes do you engage in exercise at this level? 20 min 05/14/2023 Hunger Vital Sign Answer Date Recorded Within the past 12 months, y ou worried that your food would run out before you got the money to buy more. Never true 05/14/19 24 Within the past 12 months, t he food you bought just didn't last and you didn't have money to get more. Never true 05/14/2023 PRAPARE - Transportation Answer Date Re corded In the past 12 months, has l ack of transportation kept you from medical appointments or from getting medications? No 04/23 In the past 12 months, has l ack of transportation kept you from meetings, work, or from getting things needed for daily living? No 05/14/2023 Nutrition Answer Date Recorded Nutrition: EVOO Fat Source Yes 05/14 On average, how many serving s of fruits and vegetables do you eat per day (serving size is equal to 1 cup or approximately the size of a tennis ball)? 0-2 05/14/2023 Dental Answer Date Recorded Dental: Regular Dentist Yes 02/02/20 Employment Answer Date Recorded Employment status Retired 05/14/2023 Housing Stability Answer Date Recorded What is your living situation today? I have a [facility] place to live 05/14/2023 Education Answer Date Recorded What is the highest level of school you have completed or the highest degree you have received? Associate degree: occupational, technical, or vocational program 02/01/2022 Sex and Gender Information Value Date Recorded Sex Assigned at Male 07/22/2022 9:07 PM CDT Gender Identity Male 02/01/2022 8:46 AM CDT Sexual Orientation Straight 02/01/2022 8: 46 AM CDT documented as of this encounter Plan of Treatment Not on file documented as of this encounter Results * DX Ankle Bilateral 3+ Views (05/15/2023 9:11 AM BAFFLE INSTALLER) Anatomical Region Laterality Modality Lower Extremity, Ankle, Musc uloskeletal RST LOS, Musculoskeletal ARZ LOS, Muskuloskeletal FLA LOS Bilateral Compu avinash Tomography Impressions 05/15/2023 9:25 AM BAFFLE INSTALLER Degenerative arthritis bilateral ankles, greater on the right where it is advanced. Right lateral talar tilt. Chronic ossific fragment or body adjacent to the left medial malleolus. Prominent anterior tibial plafond and talar body osteophytes, greater on the left. Bilateral hindfoot valgus and pes planus. Large right ankle joint effusion and/or synovitis. Narrative 05/15/2023 9:25 AM BAFFLE INSTALLER EXAM: ??DX ANKLE BILATERAL 3+ VIEWS Procedure Note Nir Hernandez M.D. - 05/15/2023 EXAM: DX ANKLE BILATERAL 3+ VIEWS IMPRESSION: Degenerative arthritis bilateral ankles, greater on the right where it isadvanced. Right lateral talar tilt. Chronic ossific fragment or bodyadjacent to the left medial malleolus. Prominent anterior tibial plafondand talar body osteophytes, greater on the left. Bilateral hindfoot valgus and pesplanus. Large right ankle joint effusion and/or synovitis. Simone KATE PDena., M.S. [facility] PROCEDURES documented in this encounter Visit Diagnoses Diagnosis Pain Ankle Right- Primary Pain Ankle Right documented in this encounter Care Teams Refractory Bricklayer Relationship Specialty Start Date End Date Elsewhere, Pcp PCP - General Internal Medicine 04/24/22 documented as of this encounter
--- OUTSIDE RECORDS SUMMARY | 2023-08-05 19:42 | XMS_ITS ---
Author Name Unknown Organization [facility] Address [address] [place] [address] Care Team Providers Care Felt Dyeing Machine Tender Name Role Phone Unavailable Unavailable Unavailable Surgery Details Not on file Complications Check Surgery Details section. Procedure Estimated Blood Loss Check Surgery Details section. Procedure Findings Check Surgery Details section. Procedure Specimens Taken Check Surgery Details section.
--- OUTSIDE RECORDS SUMMARY | 2023-08-05 19:42 | XMS_ITS | Encounter Summary ---
Author Name Unknown Organization [facility] Address [address] [place] [address] Care Team Providers Care Table Cover Folder Name Role Phone Elsewhere, Pcp Primary Care Provider Unavailabl e Reason for Referral * Outpatient (Routine) - Closed Specialty Diagnoses / Procedures Referred By Charlesac t Referred To Contact Diagnoses Pain Ankle Right Procedures DX Ankle Bilateral 3+ Views Simone Mcdaniels MPAS, P.A.-C., M.S. [address] [place] [phone] [facility] Referral ID Status Reason Start Date Expiration Date Visits Re quested Visits Authorized [id number] Closed 05/13/2023 05/12/2024 1 1 X COIL WINDER Reason for Visit * Outpatient (Routine) - Closed Specialty Diagnoses / Procedures Referred By Klaus interiano Referred To Contact Diagnoses Pain Ankle Right Procedures DX Ankle Bilateral 3+ Views Simone Mcdaniels MPAS, P.A.-C., M.S. [address] [place] [phone] [facility] Referral ID Status Reason Start Date Expiration Date Visits Re quested Visits Authorized [id number] Closed 05/13/2023 05/12/2024 1 1 Encounter Details Date Type Department Care Team (Latest Contact Info) Description 05/15/2023 8:34 AM HELIX COIL WINDER - 05/15/2023 11:59 PM HELIX COIL WINDER Hospital Encounter Department of Radiology, [facility], in [place], [place] [address] [place] [address] Simone Mcdaniels MPAS, P.A.-C., M.S. [address] [place] [address] Pain Ankle Right Discharge Disposition: Home or Self Care Social History Tobacco Use Types Packs/Day Years Used Date Smoking Tobacco: Never Smokeless Tobacco: Never Alcohol Use Standard Drinks/Week Comments Yes 5 (1 standard drink = 0.6 oz pur e alcohol) [facility] Utilities Answer Date Recorded In the past 12 months has e [employer], gas, oil, or water [employer] threatened to shut off services in your [...] week 02/01/2022 How often do you attend chur ch or adventist services? More than 4 times per year 02/01/2022 Do you belong to any clubs o r organizations such as gnosticist groups, unions, fraternal or athletic groups, or [...] and heating? Not hard at all 02/01/2022 [facility] - Occupational Stress [...] your living situation today? I have a [facility] place to live 05/14/2023 Education Answer [...] AM CDT documented as of this encounter Medications at Time of Discharge Medication Sig Dispensed Refills Start Date End Date hydroCHLOROthiazide (HYDRODIURIL) 25 mg tablet hydrochlorothiazide 25 mg tablet TAKE 1 TABLET BY MOUTH EVERY DAY 09/07/2015 ibuprofen (ADVIL,MOTRIN) 200 mg capsule Take 200 mg by mouth every 6 (six) hours as needed for pain. meloxicam (MOBIC) 15 mg tablet Take 15 mg by mouth as needed for pain. sildenafiL (VIAGRA) 100 mg tablet sildenafil 100 mg tablet TAKE ONE TABLET BY MOUTH EVERY DAY simvastatin (ZOCOR) 20 mg tablet Take 20 mg by mouth at bedtime. 11/19/2019 tadalafiL (CIALIS) 5 mg tablet tadalafil 5 mg tablet TAKE ONE TABLET BY MOUTH EVERY DAY documented as of this encounter Plan of Treatment Not on file documented as of this encounter Procedures Procedure Name Priority Date/Time Associated Diagnosis Comments DX ANKLE BILATERAL 3+ VIEWS RAD - Routine (most inpatients and all outpatients) 05/15/2023 9:11 AM HELIX COIL WINDER Pain Ankle Right documented in this encounter Results * DX Ankle Bilateral 3+ Views (05/15/2023 9:11 AM HELIX COIL WINDER) Anatomical Region Laterality Modality Lower Extremity, Ankle, Musc uloskeletal RST LOS, Musculoskeletal ARZ LOS, Muskuloskeletal FLA LOS Bilateral Compu avinash Tomography Impressions 05/15/2023 9:25 AM HELIX COIL WINDER Degenerative arthritis bilateral ankles, greater on the right where it is advanced. Right lateral talar tilt. Chronic ossific fragment or body adjacent to the left medial malleolus. Prominent anterior tibial plafond and talar body osteophytes, greater on the left. Bilateral hindfoot valgus and pes planus. Large right ankle joint effusion and/or synovitis. Narrative 05/15/2023 9:25 AM HELIX COIL WINDER EXAM: ??DX ANKLE BILATERAL 3+ VIEWS Procedure [...] this encounter Visit Diagnoses Diagnosis Pain Ankle Right documented in this encounter Care Teams Table Cover Folder Relationship Specialty Start Date End Date Elsewhere, Pcp PCP - General Internal Medicine 04/24/22 documented as of this encounter
--- OUTSIDE RECORDS SUMMARY | 2023-08-05 19:42 | XMS_ITS | Clinical Summary ---
Author Name Unknown Organization [facility] Address [address] [place] [address] Care Team Providers Care Event Executive Name Role Phone Elsewhere, Pcp Primary Care Provider Unavailabl e Source Comments Patient records contain information from all sites at [facility]. For routine questions regarding patient records, call [phone] during business hours, M-F 8:00 AM - 5:00 PM Central Time. Record requests for emergency care only can be directed to [phone] at any time.[facility] Allergies Active Allergy Reactions Criticality Noted Date Comments Bee Venom Protein (Honey Bee) Other (see comments) 03/29/2022 EXTREME SWELLING Medications Medication Sig Dispensed Refills Start Date End Date Status simvastatin (ZOCOR) 20 mg tablet Take 20 mg by mouth at bedtime. 11/19/2019 Active hydroCHLOROthiaz monse (HYDRODIURIL) 25 mg tablet hydrochlorothiazide 25 mg tablet TAKE 1 TABLET BY MOUTH EVERY DAY 09/07/2015 Active tadalafiL (CIALIS) 5 mg tablet tadalafil 5 mg tablet TAKE ONE TABLET BY MOUTH EVERY DAY Active ibuprofen (ADVIL,MOTRIN) 200 mg capsule Take 200 mg by mouth every 6 (six) hours as needed for pain. Active sildenafiL (VIAGRA) 100 mg tablet sildenafil 100 mg tablet TAKE ONE TABLET BY MOUTH EVERY DAY Active meloxicam (MOBIC) 15 mg tablet Take 15 mg by mouth as needed for pain. 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 Primary Osteoarthritis Ankle Right (Primary Dx); Pain Ankle Bilateral; Other Chronic Pain 05/15/2023 8:34 AM COUNTRY DIRECTOR - 05/15/2023 11:59 PM COUNTRY DIRECTOR Hospital Encounter Department of Radiology, [facility], in [place], [place] [address] [place] [address] Simone Mcdaniels MPAS, P.A.-C., M.S. Pain Ankle Right Discharge Disposition: Home or Self Care 05/14/2023 Orders Only Department of Orthopedic Surgery in [place], [place] [address] [place] [address] [facility], Provider Pain Ankle Bilateral 05/10/2023 Clinical Communication Department of Orthopedic Surgery in [place], [place] [address] [place] [phone] Nabor Sorto III, M.D. Pre-visit Testing Orders 05/06/2023 Clinical Communication Department of Orthopedic Surgery in [place], [place] [address] [place] [phone] Provider, Unknown 05/06/2023 Clinical Communication Department of Orthopedic Surgery in [place], [place] [address] [place] [phone] Prescheduling, Provider Pre-scheduling Questionnaire (Orthopedic Surgery ) 05/06/2023 [facility] [address] [place] [address] Guillaume Eason M.D. Pain Ankle Bilateral (Primary Dx); Other Chronic Pain from Last 3 Months Family History Medical History Relation Name Comments Diabetes Father Buddy Other cancer Father Buddy lung Stroke Father Buddy Stroke Maternal Grandmother RENU d Stroke Mother Citlaly Other cancer Mother's Brother Ethan V radition an d meds Diabetes Son Terry being treated Relation Name Status Comments Father Buddy Maternal Grandmother RENU Mother Citlaly Mother's Brother Ethan V Son Terry Social History Tobacco Use Types Packs/Day Years Used Date Smoking Tobacco: Never Smokeless Tobacco: Never Alcohol Use Standard Drinks/Week Comments Yes 5 (1 standard drink = 0.6 oz pur e alcohol) [facility] Utilities Answer Date Recorded In the past 12 months has e [employer], gas, oil, or water [employer] threatened to shut off services in your [...] 02/01/2022 How often do you attend chur or scientologist services? More than 4 times per year 02/01/2022 Do you belong to any clubs o r organizations such as anabaptist groups, unions, fraternal or athletic groups, or [...] and heating? Not hard at all 02/01/2022 [facility] [place] of Occupat ional Health - Occupational Stress [...] your living situation today? I have a [facility] place to live 05/14/2023 Education Answer Date Recorded What is the highest level of school you have completed or the highest degree you have received? Associate degree: occupational, technical, or vocational program 02/01/2022 Sex and Gender Information Value Date Recorded Sex Assigned at Male 07/22/2022 9:07 PM CDT Gender Identity Male 02/01/2022 8:46 AM CDT Sexual Orientation Straight 02/01/2022 8: 46 AM CDT Last Filed Vital Signs Vital Sign Reading Time Taken Comments Blood Pressure 144/83 04/24/2022 1:00 PM COUNTRY DIRECTOR Pulse 53 04/24/2022 1:15 PM COUNTRY DIRECTOR Temperature 36.5 ??C (97.7 ??F) 04/24/2022 2:28 PM CS T Respiratory Rate 12 04/24/2022 1:15 PM COUNTRY DIRECTOR Oxygen Saturation 96% 04/24/2022 1:15 PM COUNTRY DIRECTOR Inhaled Oxygen Concentration - - Weight 96.1 kg (211 lb 13.8 oz) 04/24/2022 7:48 AM COUNTRY DIRECTOR Height - - Body Mass Index - - Plan of Treatment Health Maintenance Due Date Last Done Comments CT Colonography 1953 Cologuard 1955 Depression Monitoring (PHQ-9) 1953 Hepatitis C Screening 1955 Lipid (Cholesterol) Screening 1955 Office Visit for Blood Press ure Check / Re-check 1953 Creatinine Level (Kidney Fun ction Test) 04/03/2023 04/03/2022, 03/25/2021, 05/18/2020 Potassium Level 04/03/2023 04/03/2022, 12/0 07/2020, 05/18/2020 Sodium Level 04/03/2023 04/03/2022, 12/0 07/2020, 05/18/2020 Fall Risk Screen (Annual) 04/22/2023 Zoster Vaccines (2 of 2) 05/07/2023 03/12/2023 Colonoscopy 11/20/2024 11/21/2019 Colorectal Cancer Surveillance 11/20/2024 Fasting Glucose for Diabetes Screening 04/03/2025 04/03/2022, 03/25/2021, 05/18/2020 DTaP,Tdap,and Td Vaccines (3 - Td or Tdap) 03/21/2031 03/21/2021, 03/08/2011 Influenza Vaccine Completed 01/18/2023, , 03/21/2021, Additional history exists Pneumococcal vaccine (65+ years) Completed 03/12/2023, 12/11/2019, 09/29/2018 COVID-19 Vaccine Completed 04/11/2023, 07/2021, 11/23/2021, Additional history exists Medical Devices Implanted Type Area Poultry Processor Device Identifier Shelf Expiration Date Model / Serial / Lot Grft Ost Fill Chp 5cc - [id number] - [id number] Implanted:Qty : 1 on 04/24/2022 by Michael Unger D.O., M.S. at [facility] Bone or [employer] 04/19/2026 [id number] / [id number] / Mary Ellen [place] Pty 1cc - [id number] - [id number] Implanted:Qty : 1 on 04/24/2022 by Michael Unger D.O., M.S. at [facility] [employer] 11/02/2024 [id number] / [id number] / Scrw Lck 2.4x16 - [id number] Implanted:Qty : 3 on 04/24/2022 by Michael Unger D.O., M.S. at [facility] Hardware e.g. pins/screws/ rods Right: Wrist [employer] [id number] / / Scrw Lck 2.4x10 - [id number] Implanted:Qty : 1 on 04/24/2022 by Michael Unger D.O., M.S. at [facility] Hardware e.g. pins/screws/ rods Right: Wrist [employer] [id number] / / Plt Wrst Cup Fsn 10h 18 - [id number] Implanted:Qty : 1 on 04/24/2022 by Michael Unger D.O., M.S. at [facility] Hardware e.g. pins/screws/ rods Right: Wrist [employer] [id number] / / Scrw Lck 2.4x12 - [id number] Implanted:Qty : 3 on 04/24/2022 by Michael Unger D.O., M.S. at [facility] Hardware e.g. pins/screws/ rods Right: Wrist [employer] [id number] / / Scrw Lck 2.4x14 - [id number] Implanted:Qty : 3 on 04/24/2022 by Michael Unger D.O., M.S. at [facility] Hardware e.g. pins/screws/ rods Right: Wrist [employer] [id number] / / Mesh Or Patch Mesh or Patch Right: Abdomen Description:hernia Misc Other Misc Other Eye Description:cataracts [employer] Granules Implanted:Qty : 1 on 04/24/2022 by Michael Unger D.O., M.S. at [facility] Orthopedic Other [employer] [id number] 06/19/2024 [id number] / / [id number] [employer] Ganules Implanted:Qty : 1 on 04/24/2022 by Michael Unger D.O., M.S. at [facility] Orthopedic Other [employer] [id number] 06/19/2024 [id number] / / [id number] Procedures Procedure Name Priority Date/Time Associated Diagnosis Comments DX ANKLE BILATERAL 3+ VIEWS RAD - Routine (most inpatients and all outpatients) 05/15/2023 9:11 AM COUNTRY DIRECTOR Pain Ankle Right OUTSIDE DX SKELETAL Routine 05/06/2023 11:00 AM COUNTRY DIRECTOR BASIC METABOLIC PANEL, S/P Routine 04/03/2022 11:05 AM COUNTRY DIRECTOR Preanesthetic Medical Exam from Last 3 Months or Most Recently Relevant to Health Maintenance Results * DX Ankle Bilateral 3+ Views (05/15/2023 9:11 AM COUNTRY DIRECTOR) Anatomical Region Laterality Modality Lower Extremity, Ankle, Musc uloskeletal RST LOS, Musculoskeletal ARZ LOS, Muskuloskeletal FLA LOS Bilateral Compu avinash Tomography Impressions 05/15/2023 9:25 AM COUNTRY DIRECTOR Degenerative arthritis bilateral ankles, greater on the right where it is advanced. Right lateral talar tilt. Chronic ossific fragment or body adjacent to the left medial malleolus. Prominent anterior tibial plafond and talar body osteophytes, greater on the left. Bilateral hindfoot valgus and pes planus. Large right ankle joint effusion and/or synovitis. Narrative 05/15/2023 9:25 AM COUNTRY DIRECTOR EXAM: ??DX ANKLE BILATERAL 3+ VIEWS Procedure [...] ankle joint effusion and/or synovitis. Simone KATE P.A.-C., M.S. IMG FARA GNOSTIC IMAGING PROCEDURES * XR ankle RT min 3V-Outside Skeletal Xray (05/06/2023 11:00 AM COUNTRY DIRECTOR) Narrative IIMS - 05/08/2023 3:33 PM COUNTRY DIRECTOR This order has been created and auto-finalized to support the import of outside images. If available, original interpretation can be found on the Media Tab in Chart Review, in Document Viewer, or as an image in QREADS. If a re-interpretation or overread is required please follow defined workflow. ?? Provider Not In System IMG DIAGNOSTIC IM AGING PROCEDURES IIPA NA * (ABNORMAL) Basic Metabolic Panel (04/03/2022 11:05 AM COUNTRY DIRECTOR) Potassium, S 4.2 3.6 - 5.2 mmol/L 04/03/2022 12:06 PM COUNTRY DIRECTOR DTL Sodium, S 142 135 - 145 mmol/L 04/03/2022 12:06 PM COUNTRY DIRECTOR DTL Chloride, S 105 98 - 107 mmol/L 04/03/2022 12:06 PM COUNTRY DIRECTOR DTL Bicarbonate, S 30(H) 22 - 29 mmol/L 04/03/2022 12:06 PM COUNTRY DIRECTOR DTL Anion Gap 7 7 - 15 04/03/2022 12:06 PM COUNTRY DIRECTOR DTL BUN (Blood Urea Nitrogen), S 21 8 - 24 mg/dL 04/03/2022 12:06 PM COUNTRY DIRECTOR DTL Creatinine 1.31 0.74 - 1.35 mg/dL 04/03/2022 12:06 PM COUNTRY DIRECTOR DTL Estimated GFR (eGFR) 59(L) >=60 mL/min/BSA 04/03/2022 12:06 PM COUNTRY DIRECTOR DTL Comment: Estimated GFR calculated using the 2020 CKD_EPI creatinine equation. Calcium, Total, S 9.1 8.8 - 10.2 mg/dL 04/03/2022 12:06 PM COUNTRY DIRECTOR DTL Glucose, S 95 70 - 140 mg/dL 04/03/2022 12:06 PM COUNTRY DIRECTOR DTL Blood (Blood, Venous) 04/03/2022 11:05 AM COUNTRY DIRECTOR 04/03/2022 11:44 AM COUNTRY DIRECTOR Marie Vallecillo APRN C.N.P. LAB BLOOD ADD-ON [facility] [address] [place] [address], [facility] [address] [place] [address] from Last 3 Months or Most Recently Relevant to Health Maintenance Care Teams Event Executive Relationship Specialty Start Date End Date Elsewhere, Pcp PCP - General Internal Medicine 04/24/22
--- OUTSIDE RECORDS SUMMARY | 2023-08-05 19:42 | XMS_ITS | Referral Summary ---
Author Name Unknown Organization [facility] Address [address] [place] [id number] Care Team Providers Care Glued Wood Tester Name Role Phone Elsewhere, Pcp Primary Care Provider Unavailabl e Source Comments Patient records contain information from all sites at [facility]. For routine questions regarding patient records, call [phone] during business hours, M-F 8:00 AM - 5:00 PM Central Time. Record requests for emergency care only can be directed to [phone] at any time.[facility] Encounters Date Type Department Care Team Description 05/15/2023 10:00 AM PRESENTATION SPECIALIST Comprehensive Visit Department of Orthopedic Surgery in [place], [place] [address] [place] [phone] Nabor Sorto III, M.D. Primary Osteoarthritis Ankle Right (Primary Dx); Pain Ankle Bilateral; Other Chronic Pain 05/15/2023 8:34 AM PRESENTATION SPECIALIST - 05/15/2023 11:59 PM PRESENTATION SPECIALIST Hospital Encounter Department of Radiology, [facility], in [place], [place] [address] [place] [phone] Simone Mcdaniels MPAS, P.A.-C., M.S. Pain Ankle Right Discharge Disposition: Home or Self Care 05/14/2023 Orders Only Department of Orthopedic Surgery in [place], [place] [address] [place] [phone] [facility], Provider Pain Ankle Bilateral 05/10/2023 Clinical Communication Department of Orthopedic Surgery in [place], [place] [address] [place] [phone] Nabor Sorto III, M.D. Pre-visit Testing Orders 05/06/2023 Clinical Communication Department of Orthopedic Surgery in [place], [place] [address] [place] [phone] Provider, Unknown 05/06/2023 Clinical Communication Department of Orthopedic Surgery in [place], [place] [address] [place] [address] Prescheduling, Provider Pre-scheduling Questionnaire (Orthopedic Surgery ) 05/06/2023 [facility] [address] [place] [address] Guillaume Eason M.D. Pain Ankle Bilateral (Primary Dx); Other Chronic Pain from Last 3 Months Allergies Active Allergy Reactions Criticality Noted Date [...] And Subcutaneous Tissue Of Other Sites 03/12/2011 Social History Tobacco Use Types Packs/Day Years Used Date Smoking Tobacco: Never Smokeless Tobacco: Never Alcohol Use Standard Drinks/Week Comments Yes 5 (1 standard drink = 0.6 oz pur e alcohol) [facility] Utilities Answer Date Recorded In the [...] week 02/01/2022 How often do you attend [facility] or rastafarian services? More than 4 times per year [...] and heating? Not hard at all 02/01/2022 [facility] [place] of Occupat ional Health - Occupational Stress [...] your living situation today? I have a [facility] to live 05/14/2023 Education Answer Date [...] Comments Blood Pressure 144/83 04/24/2022 1:00 PM PRESENTATION SPECIALIST Pulse 53 04/24/2022 1:15 PM PRESENTATION SPECIALIST Temperature 36.5 ??C (97.7 ??F) 04/24/2022 2:28 PM CS T Respiratory Rate 12 04/24/2022 1:15 PM PRESENTATION SPECIALIST Oxygen Saturation 96% 04/24/2022 1:15 PM PRESENTATION SPECIALIST Inhaled Oxygen Concentration - - Weight 96.1 kg (211 lb 13.8 oz) 04/24/2022 7:48 AM PRESENTATION SPECIALIST Height - - Body Mass Index - - Plan of Treatment Not on file Medical Devices Implanted Type Area Help Desk Assistant Device Identifier Shelf Expiration Date Model / Serial / Lot Grft Ost Fill Chp 5cc - [id number] - [id number] Implanted:Qty : 1 on 04/24/2022 by [facility] D.O[facility] [employer] 04/19/2026 [id number] / [id number] / Grft [employer] Pty 1cc - [id number] - [id number] Implanted:Qty : 1 on 04/24/2022 by Michael Unger D.O., M.S. at [facility] [employer] 11/02/2024 [id number] / [id number] / Scrw Lck 2.4x16 - [id number] Implanted:Qty : 3 on 04/24/2022 by Michael Unger D.O., M.S. at [facility] Hardware e.g. pins/screws/ rods Right: Wrist [employer] [id number] / / Scrw Lck 2.4x10 - [id number] Implanted:Qty : 1 on 04/24/2022 by Michael Unger D.O., M.S. at [facility] Hardware e.g. pins/screws/ rods Right: Wrist [employer] [id number] / / Plt Wrst Cup Fsn 10h 18 - [id number] Implanted:Qty : 1 on 04/24/2022 by Michael Unger D.O., M.S. at [facility] Hardware e.g. pins/screws/ rods Right: Wrist [employer] [id number] / / Scrw Lck 2.4x12 - [id number] Implanted:Qty : 3 on 04/24/2022 by Michael Unger D.O., M.S. at [facility] Hardware e.g. pins/screws/ rods Right: Wrist [employer] [id number] / / Scrw Lck 2.4x14 - [id number] Implanted:Qty : 3 on 04/24/2022 by Michael Unger D.O., M.S. at [facility] Hardware e.g. pins/screws/ rods Right: Wrist [employer] [id number] / / Mesh Or Patch Mesh or Patch Right: Abdomen Description:hernia Misc Other Misc Other Eye Description:cataracts [employer] Gran[employer] Implanted:Qty : 1 on 04/24/2022 by Michael Unger D.O., M.S. at [facility] Orthopedic Other [employer] [id number] 06/19/2024 [id number] / / [id number] [employer] Ganules Implanted:Qty : 1 on 04/24/2022 by Michael Unger D.O., M.S. at [facility] Orthopedic Other [employer] [id number] 06/19/2024 [id number] / / [id number] Procedures Procedure Name Priority Date/Time Associated Diagnosis Comments DX ANKLE BILATERAL 3+ VIEWS RAD - Routine (most inpatients and all outpatients) 05/15/2023 9:11 AM PRESENTATION SPECIALIST Pain Ankle Right OUTSIDE DX SKELETAL Routine 05/06/2023 11:00 AM PRESENTATION SPECIALIST BASIC METABOLIC PANEL, S/P Routine 04/03/2022 11:05 AM PRESENTATION SPECIALIST Preanesthetic Medical Exam from Last 3 Months or Most Recently Relevant to Health Maintenance Results * DX Ankle Bilateral 3+ Views (05/15/2023 9:11 AM PRESENTATION SPECIALIST) Anatomical Region Laterality Modality Lower Extremity, Ankle, Musc uloskeletal RST LOS, Musculoskeletal ARZ LOS, Muskuloskeletal FLA LOS Bilateral Compu avinash Tomography Impressions 05/15/2023 9:25 AM PRESENTATION SPECIALIST Degenerative arthritis bilateral ankles, greater on the right where it is advanced. Right lateral talar tilt. Chronic ossific fragment or body adjacent to the left medial malleolus. Prominent anterior tibial plafond and talar body osteophytes, greater on the left. Bilateral hindfoot valgus and pes planus. Large right ankle joint effusion and/or synovitis. Narrative 05/15/2023 9:25 AM PRESENTATION SPECIALIST EXAM: ??DX ANKLE BILATERAL 3+ VIEWS Procedure [...] min 3V-Outside Skeletal Xray (05/06/2023 11:00 AM PRESENTATION SPECIALIST) Narrative IIMS - 05/08/2023 3:33 PM PRESENTATION SPECIALIST This order has been created and auto-finalized to support the import of outside images. If available, original interpretation can be found on the Media Tab in Chart Review, in Document Viewer, or as an image in QREADS. If a re-interpretation or overread is required please follow defined workflow. ?? Provider Not In System IMG DIAGNOSTIC IM AGING PROCEDURES IIMS NA * (ABNORMAL) Basic Metabolic Panel (04/03/2022 11:05 AM PRESENTATION SPECIALIST) Potassium, S 4.2 3.6 - 5.2 mmol/L 04/03/2022 12:06 PM PRESENTATION SPECIALIST DTL Sodium, S 142 135 - 145 mmol/L 04/03/2022 12:06 PM PRESENTATION SPECIALIST DTL Chloride, S 105 98 - 107 mmol/L 04/03/2022 12:06 PM PRESENTATION SPECIALIST DTL Bicarbonate, S 30(H) 22 - 29 mmol/L 04/03/2022 12:06 PM PRESENTATION SPECIALIST DTL Anion Gap 7 7 - 15 04/03/2022 12:06 PM PRESENTATION SPECIALIST DTL BUN (Blood Urea Nitrogen), S 21 8 - 24 mg/dL 04/03/2022 12:06 PM PRESENTATION SPECIALIST DTL Creatinine 1.31 0.74 - 1.35 mg/dL 04/03/2022 12:06 PM PRESENTATION SPECIALIST DTL Estimated GFR (eGFR) 59(L) >=60 mL/min/BSA 04/03/2022 12:06 PM PRESENTATION SPECIALIST DTL Comment: Estimated GFR calculated using the 2020 CKD_EPI creatinine equation. Calcium, Total, S 9.1 8.8 - 10.2 mg/dL 04/03/2022 12:06 PM PRESENTATION SPECIALIST DTL Glucose, S 95 70 - 140 mg/dL 04/03/2022 12:06 PM PRESENTATION SPECIALIST DTL Blood (Blood, Venous) 04/03/2022 11:05 AM PRESENTATION SPECIALIST 04/03/2022 11:44 AM PRESENTATION SPECIALIST Marie Vallecillo APRN C.N.P. LAB BLOOD ADD-ON [facility] [address] [place] [address], [facility] DTL [facility] [address] [place] [address] from Last 3 Months or Most Recently Relevant to Health Maintenance Care Teams Glued Wood Tester Relationship Specialty Start Date End Date Elsewhere, Pcp PCP - General Internal Medicine 04/24/22
--- OUTSIDE RECORDS SUMMARY | 2023-08-05 19:42 | XMS_ITS | Encounter Summary ---
Author Name Unknown Organization [facility] Address [address] [place] [address] Care Team Providers Care Shop Fitter Name Role Phone Elsewhere, Pcp Primary Care Provider Unavailabl e Encounter Details Date Type Department Care Team (Late st Contact Info) Description 05/06/2023 Clinical Communication Department of Orthopedic Surgery in [place], [place] [address] [place] [address] Provider, Unknown Social History Tobacco Use Types Packs/Day Years Used Date Smoking Tobacco: Never Smokeless Tobacco: Never Alcohol Use Standard Drinks/Week Comments Yes 5 (1 standard drink = 0.6 oz pur e alcohol) [facility] Utilities Answer Date Recorded In the past 12 months has e electric, gas, oil, or water [employer] threatened to shut off services in your [...] often do you attend chur ch or anabaptism services? More than 4 times per year 02/01/2022 Do you belong to any clubs o r organizations such as shinto groups, unions, fraternal or athletic groups, or [...] and heating? Not hard at all 02/01/2022 [facility] of Occupat ional Health - Occupational Stress [...] your living situation today? I have a [facility] place to live 05/14/2023 Education [...] on file documented as of this encounter Visit Diagnoses Not on filedocumented in this encounter Care Teams Shop Fitter Relationship Specialty Start Date End Date Elsewhere, Pcp PCP - General Internal Medicine 04/24/22 documented as of this encounter
--- OUTSIDE RECORDS SUMMARY | 2023-08-05 19:42 | XMS_ITS | Encounter Summary ---
Author Name Unknown Organization [facility] Address [address] [place] [address] Care Team Providers Care Time Broker Name Role Phone Elsewhere, Pcp Primary Care Provider Unavailabl e Encounter Details Date Type Department Care Team (Late st Contact Info) Description 05/14/2023 Orders Only Department of Orthopedic Surgery in [place], [place] [address] [place] [address] [facility], Provider Pain Ankle Bilateral Social History Tobacco Use Types Packs/Day Years Used Date Smoking Tobacco: Never Smokeless Tobacco: Never Alcohol Use Standard Drinks/Week Comments Yes 5 (1 standard drink = 0.6 oz pur e alcohol) [facility] Utilities Answer Date Recorded In the past 12 months has e [employer], gas, oil, or water x[employer]ai threatened to shut off services in your [...] often do you attend chur ch or baptist services? More than 4 times per year 02/01/2022 Do you belong to any clubs o r organizations such as sikhism groups, unions, fraternal or athletic groups, or [...] and heating? Not hard at all 02/01/2022 [facility] - Occupational Stress [...] your living situation today? I have a [facility] place to live 05/14/2023 Education [...] of this encounter Visit Diagnoses Diagnosis Pain Ankle Bilateral documented in this encounter Care Teams Time Broker Relationship Specialty Start Date End Date Elsewhere, Pcp PCP - General Internal Medicine 04/24/22 documented as of this encounter
--- OUTSIDE RECORDS SUMMARY | 2023-08-05 19:42 | XMS_ITS | Clinical Summary ---
Author Name Unknown Organization [facility] Address [place], [place] [address] Care Team Providers Care Instructional Coordinator Name Role Phone Guillaume Eason MD Primary Care Provider Allergies No known active allergies Medications Medication Sig Dispensed Refills Start Date End Date Status hydrochlorothiazid e (HCTZ) 25 mg tabletIndications: HTN (hypertension) TAKE 1 TABLET BY MOUTH ONCE DAILY. 30 tablet 0 09/07/2015 Active simvastatin (ZOCOR) 20 mg tablet Take 20 mg by mouth at bedtime. 11/19/2019 Active acetaminophen (Tylenol Extra Strength) 500 mg tablet Take 500-1,000 mg by mouth every 6 hours if needed. Max acetaminophen dose: 4000mg in 24 hrs. Active meloxicam 15 mg tabletIndications: Prostate cancer (HC) Take 1 Tablet (15 mg) by mouth once daily. OK to resume taking 5 days after surgery if urine is clearing. 0 03/24/2021 Active oxyCODONE (ROXICODONE) 5 mg immediate release tabletIndications: Prostate cancer (HC) Take 1 Tablet (5 mg) by mouth every 4 hours if needed for Pain. 12 Tablet 03/24/2021 Active sennosides-docusat e (SENOKOT S) (8.6-50 mg) tabletIndications: Prostate cancer (HC) Take 1 Tablet by mouth 2 times daily if needed for Constipation. 30 Tablet 03/24/2021 Active Active Problems Problem Noted Date Diagnosed Date Adenomatous colon polyp 07/08/2014 Overview: Colonoscopy 06/2014 polyps repeat in 5 years Colonoscopy 01/2020 diverticulosis, repeat in 5 years Cervical stenosis of spinal canal 06/17/2014 Tendon laceration 03/12/2011 Lipoma of other skin and subcutaneous tissue Resolved Problems Problem Noted Date Diagnosed Date Resolved Date S/P colonoscopy 01/02/2002 07/08/2014 Immunizations Name Administration Dates Next Due COVID-19 vaccine ([employer] N[employer] 30mcg/0.3mL) PF, MDV 02/16/2021,07/05/2020,06/14/2020 Influenza, IIV3 (Age >=3 years) 04/18/2012,03/17 Influenza, IIV4 04/10/2014 Tdap 03/08/2011 Family History Medical History Relation Name Comments Hypertension Brother 1 Cancer Brother 2 throat ca-non s moker Heart Disease Father Other Father lung cancer Stroke Father TIA Hypertension Mother Stroke Mother hemorrhagic Relation Name Status Comments Brother 1 Brother 2 Father Mother Social History Tobacco Use Types Packs/Day Years Used Date Smoking Tobacco: Never Smokeless Tobacco: Never Tobacco Cessation:Counseling Given: Yes Alcohol Use Standard Drinks/Week Comments Yes 2.5 (1 standard drink = 0.6 oz p ure alcohol) on weekends Social Connections Answer Date Recorded Frequency of Communication with Friends and Fami ly Not on file 04/22/2021 Financial Resource Strain Answer Date R ecorded Difficulty of Paying Living Expenses Not on file 04/22/2021 Difficulty of Paying Living Expenses Not on file 04/22/2021 Sex and Gender Information Value Date Recorded Sex Assigned at Not on file Gender Identity Not on file Sexual Orientation Not on file Obstetrics History Last Filed Vital Signs Vital Sign Reading Time Taken Comments Blood Pressure 137/76 03/25/2021 7:51 AM [facility] Pulse 93 03/25/2021 7:51 AM [facility] Temperature 36.9 ??C (98.5 ??F) 03/25/2021 7:51 AM CS T Respiratory Rate 16 03/25/2021 10:00 AM [facility] Oxygen Saturation 91% 03/25/2021 10:00 AM [facility] Inhaled Oxygen Concentration - - Weight 95.7 kg (211 lb) 03/24/2021 10:00 AM [facility] Height 182.9 cm (6') 03/24/2021 10:00 AM [facility] Body Mass Index 28.62 03/24/2021 10:00 AM [facility] Plan of Treatment Health Maintenance Due Date Last Done Comments Depression screening for age 12+ 1965 BMI (ht and wt on same day) for age 18+ 09/23/1971 Zoster (shingles) series for age 50+ (1 of 2) 09/23/2003 Medicare Wellness for age 65+ 2018 Pneumococcal series for age 65+ (1 of 1 - PCV) 2018 Lipids for age 45-75 05/31/2019 05/31/2014, 08/13/19 12 Tetanus booster 03/08/2021 03/08/2011 COVID-19 vaccine series ( season) 2022 02/16/2021, 07/05/2020, 06/14/2020 Influenza for age 65+ 12/22/2023 04/10/2014 , 04/18/2012, 03/17/2007 Colonoscopy through age 75 02/08/202502/08, 02/09/2020, 02/09/2020, Additional history exists Tdap Completed 03/08/2011 Hepatitis C screening for ag e 18-79 Completed 05/31/2014 Procedures Procedure Name Priority Date/Time Associated Diagnosis Comments COLONOSCOPY 02/09/2020 11:06 AM CDT ANTI HCV Routine 05/31/2014 9:01 AM [facility] Need for hepatitis C screening test LIPID PANEL W REFLEX MEASURED LDL Routine 05/31/2014 9:01 AM [facility] HTN (hypertension), benign from Last 3 Months or Most Recently Relevant to Health Maintenance Results * COLONOSCOPY (02/09/2020 11:06 AM CDT) 02/09/2020 11:0 6 AM CDT Narrative Transcriptions Sammy Flores MD - 02/09/2020 12:03 PM CDT Patient Name: Lalito Jaeger Procedure Date: 02/09/2020 Gender: Male Date of : 1955 Admit Type: Outpatient Procedure: Colonoscopy Proceduralist: Sammy Flores MD , Sandra Gonzales RN(Nurse) Indications/Pre-Op Diagnosis: Surveillance: Personal history ofadenomatous polyps on last colonoscopy 5 years ago, Last colonoscopy: June 2014 Medications: Fentanyl 100 micrograms IV, Midazolam 4 mgIV, The level of sedation administered wasmoderate Procedure Description: The patient had risks, benefits and alternatives explained to andgave informed consent. The patient had a stable cardiopulmonary status and judged an adequate candidate for conscious sedation. The colonoscope was passed through the anus and advanced to thececum, identified by appendiceal orifice and ileocecal valve. Thecolonoscopy was performed without difficulty. The patient tolerated the procedure well. The quality of the bowel preparation was good. The ileocecal valve, appendiceal orifice, and rectum were photographed. Complications: No immediate complications. Estimated Blood Loss & Specimen: Estimated blood loss: none. Specimen collected - None Findings: The perianal and digital rectal examinations were normal. Scattered small-mouthed diverticula were found in the sigmoidcolon. The exam was otherwise without abnormality on direct and retroflexion views. Impressions/Post-Op Diagnosis: - Diverticulosis in the sigmoid colon. - The examination was otherwise normal on direct and retroflexionviews. - No specimens collected. Recommendation: - Patient has a contact number available for emergencies. The signsand symptoms of potential delayed complications were discussed with the patient. Return to normal activities tomorrow. Written discharge instructions were provided to the patient. - Resume previous diet. - Continue present medications. - Repeat colonoscopy in 5 years for surveillance. Moderate Sedation: Moderate (conscious) sedation was administered by the endoscopy nurse and supervised by the endoscopist. The following parameters were monitored: oxygen saturation, heart rate, respiratory rate, blood pressure, adequacy of pulmonary ventilation and reponse to care. Please refer to the patien'ts medical record flowsheets and nursing notes for moderate sedation details. Total physician intraservice time was 15 minutes. Sammy Flores MD 02/09/2020 12:02:53 PM This report has been signed electronically. Note Initiated On: 02/09/2020 11:06 AM Procedure Code(s): --- Professional --- 88879, Colonoscopy, flexible; diagnostic, including collection of specimen(s) bybrushing or washing, when performed (separateprocedure) Diagnosis Code(s): --- Professional --- Z86.010, Personal history of colonicpolyps K57.30, Diverticulosis of large intestine without perforation or abscess withoutbleeding CPT copyright 2019 [employer]. All rights reserved. The codes documented in this report are preliminary and upon remote inpatient coder reviewmay be revised to meet current compliance requirements. Scope In: 11:43:49 AM Scope Withdrawal Time 0 hours 8 minutes 0 seconds Scope Out: 11:55:54 AM Sammy Flores MD PROCEDURE ORD * (ABNORMAL) LIPID PANEL W REFLEX MEASURED LDL (05/31/2014 9:01 AM [facility]) CHOLESTEROL,TOTAL 174 100 - 199 mg/dL 05/31/2014 9:39 AM [facility] TRIGLYCERIDES 140 <150 mg/dL 05/31/2014 9:39 AM [facility] HDL CHOLESTEROL 36(L) >40 mg/dL 5 9:39 AM [facility] NON-HDL CHOLESTEROL 138 <145 mg/dl 05/31/2014 9:39 AM [facility] CHOL/HDL RATIO 4.83(H) <4.50 05/31/2014 9:39 AM [facility] LDL CHOLESTEROL 110 <=130 mg/dL 05/31/2014 9:39 AM [facility] [[email or web address]] PATIENT STATUS FASTING 05/31/2014 9:39 AM [facility] [[email or web address]] Blood specimen (specimen) BLOOD SPECIMEN / Unknown Venipuncture / Unknown 05/31/2014 9:01 AM [facility] 05/31/2014 9:01 AM [facility] Kimberly Dominique DO CHEMISTRY [facility] [[email or web address]] [address] [place] [address], * ANTI HCV [12113.2] (05/31/2014 9:01 AM [facility]) HEPATITIS C ANTIBODY Non-Reacti ve Non-Reacti ve 05/31/2014 2:09 PM [facility] Blood specimen (specimen) BLOOD SPECIMEN / Unknown Venipuncture / Unknown 05/31/2014 9:01 AM [facility] 05/31/2014 9:01 AM [facility] Narrative [facility] - 05/31/2014 2:09 PM [facility] Antibodies to HCV not detected; does not exclude the possibility of exposure to HCV. Kimberly Dominique DO SEND OUTS [facility] [address] [place] [address], [place] from Last 3 Months or Most Recently Relevant to Health Maintenance Advance Directives * Full Code (Latest Code Status on File) Date Activated Date Inactivated Comments 03/24/2021 9:36 AM 03/25/2021 6:55 PM Question Answer Comments Code Status Discussion: Unable to Assess Preferences, Provider to review later Care Teams Instructional Coordinator Relationship Specialty Start Date End Date Guillaume Eason MD [address] [place] [address] PCP - General Family Practice 12/15/19
--- OUTSIDE RECORDS SUMMARY | 2023-08-05 19:42 | XMS_ITS | Encounter Summary ---
Author Name Unknown Organization [facility] Address [address] [place] [address] Care Team Providers Care Forklift Material Handler Name Role Phone Elsewhere, Pcp Primary Care Provider Unavailabl e Reason for Visit * Outpatient (Routine) - Closed Specialty Diagnoses / Procedures Referred By Klaus t Referred To Contact Orthopedic Surgery Diagnoses Pain Ankle Bilateral Other Chronic Pain Guillaume Eason M.D. [address], [place] [address] [facility] Referral ID Status Reason Start Date Expiration Date Visits Re quested Visits Authorized [id number] Closed 05/06/2023 05/05/2024 1 1 Encounter Details Date Type Department Care Team (Latest Contact Info) Description 05/15/2023 10:00 AM EBD TEACHER Comprehensive Visit Department of Orthopedic Surgery in [place], [place] [address] [place] [phone] Nabor Sorto III, M.D. [address] [place] [phone] Primary Osteoarthritis Ankle Right (Primary Dx); Pain Ankle Bilateral; Other Chronic Pain Social History Tobacco Use Types Packs/Day Years Used Date Smoking Tobacco: Never Smokeless Tobacco: Never Alcohol Use Standard Drinks/Week Comments Yes 5 (1 standard drink = 0.6 oz pur e alcohol) [facility] Utilities Answer Date Recorded In the past 12 months has [employer], gas, oil, or water company threatened to [...] week 02/01/2022 How often do you attend [facility] or scientology services? More than 4 times per year 02/01/2022 Do you belong to any clubs o r organizations such as sabianist groups, unions, fraternal or athletic groups, or [...] and heating? Not hard at all 02/01/2022 [facility] - Occupational Stress [...] your living situation today? I have a [facility] place to live 05/14/2023 Education Answer [...] AM CDT documented as of this encounter Consult Notes * Nabor Sorto III, M.D. 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 HISTORY OF PRESENT ILLNESS He states he had multiple ankle sprains in the past, right more common than his left, but he has developed more pain discomfort around his right ankle. He states it is intermittent. About 2 weeks ago, he was having severe pain. Today it is more of a mild pain. He has found if he wears a high-top boot and laces it up snugly, he is able to get around better. He does walk on a treadmill, and he feels after an hour on the treadmill he has significant pain the rest of the day. He points to the anterior aspect of his ankle as where his pain is located. He describes it as deep-seated, achy-type pain. MEDICAL HISTORY His past medical history is negative for diabetes. SURGICAL HISTORY He had previous bunion surgery in the . He, a year ago, had a wrist arthrodesis by Dr. Unger and has done very well. SOCIAL HISTORY He does not smoke. OBJECTIVE PHYSICAL EXAMINATION General: Patient is a pleasant 67-year-old gentleman. He is alert and oriented, in no apparent distress. Gait: He walks with a mildly antalgic gait. He is able to walk on his toes and heels with some milddiscomfort on the right. Musculoskeletal : Today he is tender to palpation over the right ankle over the anterior medial aspect as well as around his lateral gutter. He has some pain with range of motion. He has very good motion through his adjacent joints. He has good pulses. Sensation is intact to light touch. He does have a cystic-type prominence around his lateral aspect of his ankle consistent with a ganglion cyst. Excellent pulses. Excellent strength with dorsiflexion, plantarflexion, inversion, and eversion. DIAGNOSTICS X-rays are reviewed, show marked narrowing of his right ankle with a varus tilt. ASSESSMENT / PLAN #1 Right ankle arthritis PLAN: At this point, we discussed and reviewed his situation. I reviewed with him operative and nonoperative treatments. From the nonsurgical standpoint, we talked about continuing with high-top boots. We also talked about a leather gauntlet AFO which would provide him support in lower shoes. We discussed cortisone injections as well. From the surgical standpoint, we talked about arthrodesis versus arthroplasty and the advantages and disadvantages of both of these. In his situation, where he has verygood hindfoot motion, I think a fusion would be a very reasonable option. I think it would be more durable for him as he continues to help on the farm. I reviewed all that in detail with him. He is not quite ready to go through that yet, so he is going to continue with appropriate shoe wear. If he is interested in a brace, he will contact us, and we will send him a prescription for a leather gauntlet AFO. All of his questions were answered today. Nabor Sorto III, M.D. CT CT Job ID: [id number] TEACHER documented in this encounter Plan of Treatment Not on file documented as of this encounter Visit Diagnoses Diagnosis Primary Osteoarthritis Ankle Right- Primary Pain Ankle Bilateral Other Chronic Pain documented in this encounter Care Teams Forklift Material Handler Relationship Specialty Start Date End Date Elsewhere, Pcp PCP - General Internal Medicine 04/24/22 documented as of this encounter
--- OUTSIDE RECORDS SUMMARY | 2023-08-05 19:43 | XMS_ITS | Data Portability ---
Author Name Unknown Address [address] [place] [address] Phone [phone] Organization [facility] Address [address] [facility] [address] [place] [address] Care Team Providers Care Conversion Worker Name Role Phone [facility] Primary Care Provider Assessment Encounter Date Assessment Date Assessment LastModified by Organization Details LastModified Time 06/20/2020 06/20/2020 64 yoM with elevated PSA now s/p prostate biopsy. Not available 06/19/2020 19:47:32 08/18/2020 08/18/2020 64 Y/O MALE,HX OF A SLIGHTLY ELEVATED PSA AT 4.1. HIGH VOLUME G7 (3,4),G6(3,3) LEFT LOBE, SMLL FOCUS RT LOBE . NEG C.T. SCAN AND NEG BONE SCAN. OVERALL GOOD HEALTH. REVIEWED ALL OPTIONS. HE IS SOMEWHAT RELUCTANT TO DO SURGERY. REVIEWED ALL OPTIONS. SURGERY, CRYOTHERAPY, RADIATION . ALL QUESTIONS ANSWERED. REVIEWED LABS, PATH, XRAYS, AND RECORDS PLAN WILL GET DICIPHER. HE WILL DECIDE AND WILL SCHEDULE. TIME 45 MIN Not available 08/18/2020 21:44:29 09/09/2020 09/09/2020 64 Y/O MALE, FROM [place] , HX OF A SLIGHTLY ELEVATED PSA OF 4.1. S/P TRUS/BX -DR DURANT. PATHOLOGY POS. G7 (3,4),G6, LEFT LOBE. SMALL FOCUS G6 RT LOBE -5%. C.T. NEG, BONE SCAN NEG. DICIPHER SCORE SHOWED LOW RISK FOR METS IN THE FUTURE. HE IS RELUCTANT TO TREAT BASED ON POSSIBLE SIDE EFFECTS. REVIEWED FINDINGS AND AGAIN REVIEWED ALL OPTIONS . WATCHFUL WAITING, RADIATION, FOCAL CRYOTHERAPY, SURGERY,ETC. ALL QUESTIONS ANSWERED.HE WOULD LIKE TO CONTINUE WITH A CONSERVATIVE APPROACH TO START. REVIEWED DICIPHER RESULTS PLAN RTC 3 MO, PSA. TIME 45 MIN Not available 09/09/2020 13:13:15 12/20/2020 12/20/2020 65 Y/O MALE, HX LOW VOLUME G7 (3,4) . PSA 5.37. DICIPHER INTERMED RISK. VOIDING WELL. DISCUSSED OPTIONS. WILL CONTINUE WITH CONSERVATIVE MANAGEMENT. REVIEWED LABS, RECORDS INTERVIEW WITH PRESENT PLAN RTC 6 MO, PSA. Not available 12/20/2020 16:25:38 Plan of Treatment Reminders Order Date Submit Date Provider Last Modified By Organization Details Last Modified Time Details Appointments ESTABLISH ED 10 2023 01:40P Shy Bañuelos MD Not available Not available Not available Lab PSA, serum or plasma 2022 023 [email or web address], [address], [place], [address], 01/31/2023 15:21:27 PSA, serum or plasma 2021 022 [email or web address], [address], [place], [address], 04/05/2022 10:32:40 PSA, serum or plasma 2021 022 [email or web address] Not available 10/09/2021 10:37:02 PSA, serum or plasma 2021 022 [email or web address] Not available 07/03/2021 10:30:57 PSA, total, serum or plasma 2021 022 [email or web address] Not available 08/28/2021 17:31:41 Referral None recorded. Procedures None recorded. Surgeries inflatabl e penile prosthesi s, insertion of (SURG) 2021 022 [email or web address] Not available 04/11/2022 10:35:26 prostatec kassidy, laparosco pic, robotic (SURG) 11/08/ 2021 12/03/2 021 [email or web address] Not available 03/28/2021 13:20:58 Imaging None recorded. Medication Orders tadalafil 20 mg tablet 2022 023 [facility], [place], [place], [address] [place], [address], 01/31/2023 15:26:01 compounde d medicatio n 2022 023 [facility], [address], [place], [place], [id number], 05/21/2022 17:41:11 compounde d medicatio n 2022 023 [facility], [address], [place], [place], [id number], 05/21/2022 17:41:11 tadalafil 20 mg tablet 2021 022 [facility], [place], [place], [address] [place], [address], 04/05/2022 10:45:08 cefdinir 300 mg capsule 2020 022 [facility] [address] [employer], [address] [place] [address], [place], [address], 05/08/2021 11:57:10 ceftriaxo ne 1 gram solution for injection 2020 021 Not available 08/18/2020 16:47:23 ceftriaxo ne 1 gram solution for injection 2020 021 Not available 08/18/2020 16:47:23 Patient TargetsNo targets recorded. Patient Instructions Encounter Date Encounter Id Patient Instructions Last Modified By Organization Details Last Modified Time 04/05/2021 [id number] RTC by this afternoon if having issues with urinary retention. [email or web address] Not available 04/05/2021 09:48:24 Reason for Referral None Reported. Results Created Date Observation Date Name Description Value Unit Range Abnormal Flag LastModifiedBy Organization Detail LastModifiedTime 07/04/19 22 07/03/2021 PSA, serum or plasm a PSA, Total <0.04n g/mL Not Available [facility] [address], [place], [address], 07/03/2021 10:30:41 10/10/19 22 10/09/2021 PSA, serum or plasm a PSA, Total <0.04 ng/ml Not Available [facility] [address], [place], [address], 10/09/2021 10:36:49 04/05/20 22 04/05/2022 PSA, serum or plasm a PSA <0.04 0-4.0 Not Available [facility] [address], [place], [address], 04/05/2022 10:19:10 02/01/20 23 01/31/2023 PSA, serum or plasm a PSA <0.04 ng/ml 0-4.0 Not Available [facility] [address], [place], [address], 01/31/2023 15:08:39 06/22/19 21 06/20/2020 US, prost ate No observ ation record ed. Not Available 06/28/2020 11:59:53 08/10/19 21 08/01/2020 CT, abdom en + pelvi s, w/ contr ast No observ ation record ed. [email or web address] Radiology Department [address] [place], [address], 08/19/2020 10:06:28 08/19/19 21 08/16/2020 NM, bone scan, whole body No observ ation record ed. [facility] Radiology Department [address] [place], [address], 08/22/2020 17:36:29 02/08/20 21 02/07/2021 MRI, prost ate, w/wo contr ast No observ ation record ed. [email or web address] [facility] [place] [address] [facility], [place], [address], 02/21/2021 15:31:49 03/27/20 21 03/25/2021 imagi ng/di agnos tic resul t No observ ation record ed. Not Available 03/27/2021 15:23:08 Result Notes None recorded. Problems Name Status Onset Date Resolution Date Notes Provider Name and Address Organization Details Recorded Time Malignant tumor of prostate Active 022 prostatectomy in March 2021. Jack 3+4, 40% of the gland, positive neurovascular invasion left, 6mm positive margin in that location. First PSA negative. Jack Bañuelos MD [address] [place] [address],[address], [address] , [facility] 2 10:52:34 Problem Notes None recorded. Procedures Surgical History Date Name Laterality Status Provider Name and Address Organization Details Recorded Time 3 DAY LIGHT RELIEF OPERATOR/blood draw completed Jack Bañuelos MD [address] [place] [address],[address], [place], [address], [facility] 01/31/2023 15:08:36 3 arthrodesis completed Srini Durant MD [address] [place] [address],[address], [place], [address], [facility] 05/21/2022 16:43:43 2 Blood Draw/DAY LIGHT RELIEF OPERATOR/PSA RESULTS completed Kim hidalgo [facility] 04/05/2022 10:19:04 2 Blood Draw/DAY LIGHT RELIEF OPERATOR/PSA RESULTS completed Chelsea hidalgo [facility] 10/09/2021 10:46:34 2 DT Penile Injection Teaching completed Jack Bañuelos MD [address] [place] [address],[address], [place], [address], [facility] 07/31/2021 16:40:32 2 Blood Draw/DAY LIGHT RELIEF OPERATOR/PSA RESULTS completed Jack Bañuelos MD [address] [place], [place] [address], [place], [address], [place] [facility] 07/03/2021 10:30:31 1 Edward Catheter Removal completed Maryellen hidalgo, [facility] 04/05/2021 09:48:00 1 PROSTATECTOMY, LAPAROSCOPIC, ROBOTIC (SURG) completed Gloria Deirdre hidalgo, [facility] 03/28/2021 13:21:03 1 Prostate Biopsy Procedure completed Srini Durant MD [address] [facility],[address], [place], [address], [facility] 06/20/2020 10:15:50 0 Colonoscopy completed Axel Orozco MD [address] [facility],[address], [place], [address], [facility] 12/20/2020 16:01:08 Imaging Results Imaging Date Name Status LastModified by Organiz ation Details LastModified Time 06/20/2020 US, prostate completed Information not available 06/28/2020 11:59:53 08/01/2020 CT, abdomen + pelvis, w/ contrast completed [facility] Rad[facility] Department [address] [place], [address], 08/19/2020 10:06:28 08/16/2020 NM, bone scan, whole body completed [address] Radiology Department [address] [place], [address], 08/22/2020 17:36:29 02/07/2021 MRI, prostate, w/wo contrast completed [email or web address] [facility] [place] [address] [facility], [place], [address], 02/21/2021 15:31:49 03/25/2021 imaging/diagn ostic result completed Information not available 03/27/2021 15:23:08 Procedure Notes None recorded. Medical Equipment None Reported. Allergies No known drug allergies Medications Name Sig Start Date Stop Date Status Note LastModified by Organization Details LastModified Time compounded medication Inject 10 units intracave rnosal as needed. Adjust dose by 5 units until desired response. 2022 active Not Available Not Available Not Avai lable compounded medication Inject 20 units intracave rnosal as needed. Repeat until resolutio n of priapism 2022 active Not Available Not Available Not Avai lable bupropion HCl SR 150 mg tablet,12 hr sustained-r elease 150 MG ORALLY TWICE A DAY active Not Available Not Available No t Available azithromyci n 250 mg tablet 08/18 completed Not Available Not Available Not Available meloxicam 15 mg tablet TAKE 1 TABLET BY MOUTH EVERY DAY 05/21 completed Not Available Not Available Not Available prednisone 20 mg tablet 08/18 completed Not Available Not Available Not Available sildenafil 100 mg tablet TAKE ONE TABLET BY MOUTH EVERY DAY active Not Available Not Available No t Available ceftriaxone 1 gram solution for injection Take 1 g by injection route as needed. 08/18 completed Not Available Not Available Not Available amoxicillin 875 mg tablet 875 MG ORALLY TWICE A DAY active Not Available Not Available No t Available simvastatin 20 mg tablet TAKE 1 TABLET BY MOUTH AT BEDTIME active Not Available Not Available No t Available insulin syringe U-100 with needle 1 mL 28 gauge x 1/2 DIRECTED active Not Available Not Available No t Available hydrochloro thiazide 25 mg tablet TAKE 1 TABLET BY MOUTH EVERY DAY active Not Available Not Available No t Available cefdinir 300 mg capsule Take 1 capsule every 12 hours by oral route for 5 days. 05/08 completed Not Available Not Available Not Available oxycodone 5 mg tablet TAKE 1 TAB EVERY 4 HOURS NEEDED FOR PAIN/TAYLOR RE PAIN--SCO RE 7-10/10*P AIN NOT RELIEVED BY TYLENOL 05/21 completed Not Available Not Available Not Available tadalafil 5 mg tablet TAKE ONE TABLET BY MOUTH EVERY DAY active Not Available Not Available No t Available tadalafil 20 mg tablet TAKE ONE TABLET BY MOUTH EVERY DAY active Not Available Not Available No t Available oxycodone 10 mg tablet TAKE 1 TO 2 TABLETS BY MOUTH EVERY 4 HOURS 08/18 completed Not Available Not Available Not Available Vitals Date Recorded Body height Body mass index (BMI) Body weight Provider Name and Address Organization Details Last Updated DateTime 04/05/2022 182.88 cm 28.5 kg/m2 43338.4 g Kim Gonzalez null, [facility] 04/05/2022 10:18:24 Date Recorded Body height Body mass index (BMI) Body weight Provider Name and Address Organization Details Last Updated DateTime 05/21/2022 182.88 cm 28.5 kg/m2 32095.4 g Lashaun Woodall null, [facility] 05/21/2022 16:35:26 Date Recorded Body height Body mass index (BMI) Body weight Provider Name and Address Organization Details Last Updated DateTime 01/31/2023 182.88 cm 28.5 kg/m2 94799.4 g Jack Bañuelos MD [address] [place] [address],[address], [address] [place] [address], [facility] 01/31/2023 15:07:54 Date Recorded Body height Body mass index (BMI) Body weight Provider Name and Address Organization Details Last Updated DateTime 08/18/2020 182.88 cm 29.2 kg/m2 36463.36 estrella Orozco MD [address] [place] [address],[place] [address], [facility] 08/18/2020 16:46:59 Date Recorded Body height Body mass index (BMI) Body weight Provider Name and Address Organization Details Last Updated DateTime 09/09/2020 182.88 cm 29.2 kg/m2 23946.36 estrella Orozco MD [address] [place] [address],[place] [address], [facility] 09/09/2020 12:32:46 Date Recorded Body height Body mass index (BMI) Body weight Provider Name and Address Organization Details Last Updated DateTime 12/20/2020 182.88 cm 29.2 kg/m2 46236.36 estrella Orozco MD [address] [place] [address],[place] [address], [facility] 12/20/2020 16:00:11 Date Recorded Body height Provider Name an d Address Organization Details Last Updated DateTime 02/27/2021 182.88 cm Lalito hidalgo, [facility] 02/27/2021 16:32:16 Date Recorded Body height Body mass index (BMI) Body weight Provider Name and Address Organization Details Last Updated DateTime 05/08/2021 182.88 cm 28.5 kg/m2 41153.4 g Jack Bañuelos MD [address] [place] [address], [address] [place] [address], [facility] 05/08/2021 11:55:54 Date Recorded Body height Body mass index (BMI) Body weight Provider Name and Address Organization Details Last Updated DateTime 07/03/2021 182.88 cm 28.5 kg/m2 05248.4 g Jack Bañuelos MD [address] [place] [address], [address] [place] [address], [facility] 07/03/2021 10:27:53 Date Recorded Body height Body mass index (BMI) Body weight Provider Name and Address Organization Details Last Updated DateTime 07/31/2021 182.88 cm 28.5 kg/m2 60382.4 g Jack Bañuelos MD [address] [place] [address], [facility] 07/31/2021 16:36:45 Date Recorded Body height Body mass index (BMI) Body weight Provider Name and Address Organization Details Last Updated DateTime 10/09/2021 182.88 cm 28.5 kg/m2 20081.4 g Jack Bañuelos MD [address] [place] [address], [address] [place] [address], [facility] 10/09/2021 10:35:45 Social History Question Answer Notes LastModified by Organizat ion Details LastModified Time Tobacco Smoking Status Never Smoker Axel Orozco MD [address] [place] [address], [address], [facility] 08/18/2020 16:48:06 What Is Your Level Of Alcohol Consumption? Moderate Information not available 07/03/2021 What Is Your Level Of Caffeine Consumption? Moderate Information not available 07/03/2021 Do You Or Have You Ever Used E-cigarettes Or Vape? Never Used Electronic Cigarettes Information not available 09/09/2020 What Was The Date Of Your Most Recent Tobacco Screening? 01/31/2023 Information not available 01/31/2023 Do You Or Have You Ever Used Smokeless Tobacco? Never Used Smokeless Tobacco Information not available 09/09/2020 Do You Use Any Illicit Or Recreational Drugs? No Information not available 07/03/2021 Sex: Male Functional Status None recorded. Mental Status None recorded. Family History Relationship Description Onset Age of this Age Resolved Age Notes Maternal Uncle Family history of prostate cancer Medical History Condition Response Cancer Y High Cholesterol Y Immunizations Vaccine Type Date Status Provider Name and Address Organization Details Recorded Time COVID-19, mRNA, LNP-S, PF, 30 mcg/0.3 mL dose 02/16/2021 completed Anushka hidalgo [facility] 02/08/2023 14:30:24 COVID-19, mRNA, LNP-S, PF, 30 mcg/0.3 mL dose 06/14/2020 [facility] 14:30:24 Tdap 03/08/2011 completed Jack Bañuelos MD [address] [place] [address],[address] [place] [address], [address], [facility] 07/03/2021 10:28:35 Pneumococcal conjugate PCV 13 09/29/2018 completed Jack Bañuelos MD [address] [place] [address],[address], [address], [facility] 07/03/2021 10:28:35 pneumococcal polysaccharide PPV23 12/11/2019 completed Jack Bañuelos MD [address] [place] [address],[address] [place] [address], [address], [facility] 07/03/2021 10:28:35 COVID-19, mRNA, LNP-S, PF, 30 mcg/0.3 mL dose 07/05/2020 completed Anushka hidalgo [facility] 02/08/2023 14:30:24 Influenza, injectable,quadrival ent, preservative free, pediatric 05/04/2013 [facility] 14:30:23 Influenza, injectable, MDCK, preservative free, quadrivalent 02/25/2018 completed Anushka hidalgo [facility] 02/08/2023 14:30:23 influenza, high-dose, quadrivalent 03/21/2021 completed Anushka hidalgo, [facility] 02/08/2023 14:30:23 Tdap 03/21/2021 completed Anushka Valladares null, [facility] 02/08/2023 14:30:24 Influenza, high dose seasonal 02/06/2019 [facility] 14:30:24 Influenza, seasonal, injectable 04/18/2012 [facility] 14:30:24 Influenza, seasonal, injectable 04/21/2011 [facility]/08/[facility]23 14:30:24 Influenza, seasonal, injectable, preservative free 04/24/2016 [facility] 14:30:24 Influenza, seasonal, injectable, preservative free 04/12/2015 [facility]/08/[facility] 14:30:24 influenza, injectable, quadrivalent, preservative free 01/25/2017 [facility] 14:30:24 influenza, injectable, quadrivalent, preservative free 04/10/2014 [facility] 14:30:24 influenza, high-dose, quadrivalent 03/22/2022 [facility] 12:10:30 Influenza vaccine, quadrivalent, adjuvanted 01/18/2023 [facility]/21/2023 12:11:00 COVID-19, mRNA, LNP-S, PF, 30 mcg/0.3 mL dose, eli-sucrose 11/23/2021 [facility] 12:10:30 Past Encounters Encounter ID Performer Location Encounter Start Date Encounter Closed Date Diagnosis/Indication Diagnosis SNOMED-CT Code [id number] Srini Durant MD [facility] [address] [place] [address] 06/20/2020 09:37:37 06/22/2020 08:25:23 Prostate specific antigen above reference range [id number] Lamonte Aponte [facility] [address] [place] [address] 06/20/2020 09:37:37 06/22/2020 03:53:39 [id number] [facility] [address] [place] [address] 08/18/2020 16:31:33 08/19/2020 14:53:15 Malignant tumor of prostate [id number] MD Savanna Granados [address] [place] [address] 09/09/2020 12:24:52 09/12/2020 10:25:50 Malignant tumor of prostate [id number] [facility] [address] [place] [address] 12/20/2020 15:43:29 12/21/2020 14:32:48 Malignant tumor of prostate [id number] MD LAURO GanPeggy [address] [place] [address] 02/27/2021 15:52:46 03/01/2021 10:17:08 Malignant tumor of prostate [id number] MD LAURO GanPeggy [address] [place] [address] 04/05/2021 09:22:24 04/11/2021 03:53:09 Acute urinary tract infection [id number] MD LAURO GanPeggy [address] [place] [address] 05/08/2021 11:46:48 05/09/2021 12:44:30 Carcinoma of prostate [id number] MD Savanna Gan [address] [place] [address] 07/03/2021 10:19:15 07/05/2021 10:19:24 Malignant tumor of prostate 125916961 Secondary erectile dysfunction 139491767 [id number] Jack Bañuelos MD [facility] [address] [place] [address] 07/31/2021 16:17:25 08/03/2021 14:17:46 Secondary erectile dysfunction 617702022 [id number] Jack Bañuelos MD [facility] [address] [place] [address] 10/09/2021 10:20:21 10/11/2021 14:42:00 Malignant tumor of prostate 665466434 Secondary erectile dysfunction 194679771 [id number] Lorie Bustosn [facility] [address] [place] [address] 04/05/2022 10:04:52 04/09/2022 16:41:28 Malignant tumor of prostate 779624878 Secondary erectile dysfunction 136007528 [id number] Srini Durant MD [facility] [address] [place] [address] 05/21/2022 16:23:46 05/25/2022 09:14:53 Malignant tumor of prostate 444897924 Secondary erectile dysfunction 266937165 [id number] Jack Bañuelos MD [facility] [address] [place] [address] 01/31/2023 14:50:24 02/13/2023 13:25:12 Malignant tumor of prostate 578993655 Secondary erectile dysfunction 592750707 Health Concerns Section Related Observation LastModified by Organization Detai ls LastModified Time None Recorded Concern Status LastModified by Organization Details LastModified Time None Recorded Advance Directives Directive None Recorded Payers Encounter Date Sequence Insurance Name Policy Number Policy Vidal Covered Member ID Vidal Member ID Guarantor Name 01/31/2023 1 [place] [id number] Lalito Jaeger [id number] Lalito Jaeger 05/21/2022 1 [place] [id number] Lalito Jaeger [id number] Lalito Jaeger 04/05/2022 1 [place] [id number] Lalito Gannon Mil [id number] Lalito J Mil 10/09/2021 1 [place] [id number] Lalito Gannon Mil [id number] Lalito J iMl 07/31/2021 1 [place] [id number] Lalito Gannon Mil [id number] Lalito Jagdeep Mil 07/03/2021 1 [place] [id number] Lalito Gannon Mil [id number] Lalito J Mil 05/08/2021 1 [place] [id number] Lalito Gannon Mil [id number] Lalito J Mil 04/05/2021 1 [place] [id number] Lalito Gannon Mil [id number] Lalito J Mil 02/27/2021 1 [place] [id number] Lalito Gannon Mil [id number] Lalito J Mil 12/20/2020 1 [place] [id number] Lalito Gannon Mil [id number] Lalito J Mil 09/09/2020 1 [place] [id number] Lalito Gannon Mil [id number] Lalito J Mil 08/18/2020 1 [place] [id number] Lalito Gannon Mil [id number] Lalito Jagdeep Jaeger 06/20/2020 1 [place] [id number] Lalitocollin Jaeger [id number] Lalito Jagdeep Jaeger 06/20/2020 1 [place] [id number] Lalitocollin Jaeger [id number] Lalitocollin Jeager Notes Date Note Type Note Provider Name and Address Organization Details Recorded Time 06/20/2020 text/html HPI Notes: 64 yo M with family history of guide tour and elevated PSA. Here today for prostate biopsy. Srini Durant MD [address] [place] [address],[address] [facility], [place], [address], [facility] 06/21/2020 17:39:17 08/18/2020 text/html HPI Notes: 64 HE RE FOR CANCER TALK. ELEVATED PSA 4.3. HAD TRUS 06/20/20 JACK 7(3,4), G6(3,3) LEFT LOBE FOCAL G6(3,3). HAD NEG BONE AND CT SCANS. OVERALL EXCELLENT HEALTH. REVIEWED ALL OPTIONS- WATCHFUL WAITING, RADIATION, CRYOTHERAPY, ROBOTIC SURGERY, HORMONAL THERAPY OR COMBINATION THERAPY. ALL QUESTIONS ANSWERED. Axel Orozco MD [address] [place] [address],[address], [place], [address], [facility] 08/18/2020 21:45:37 09/09/2020 text/html HPI Notes: 64 HE RE TO REVIEW DECIPHER RESULTS. HX ELEVATED PSA 4.3. HAD TRUS 06/20/20 JACK 7(3,4), G6(3,3) LEFT LOBE FOCAL G6(3,3) -5% RT LOBE. . HAD NEG BONE AND CT SCANS. OVERALL EXCELLENT HEALTH. DICIPHER SCORE SHOWED LOW RISK -1% -5 YRS, 2.5 % AT 10 YRS. OVERALL VERY GOOD PROGNOSIS. Axel Orozco MD [address] [place] [address],[address], [place], [address], [facility] 09/09/2020 13:13:37 12/20/2020 text/html HPI Notes: 65 HE RE TO REVIEW DECIPHER RESULTS. HX ELEVATED PSA 4.3. HAD TRUS 06/20/20 JACK 7(3,4), G6(3,3) LEFT LOBE FOCAL G6(3,3) -5% RT LOBE. . HAD NEG BONE AND CT SCANS. OVERALL EXCELLENT HEALTH. DICIPHER SCORE SHOWED INTYERMED RISK -1% -5 YRS, 2.5 % AT 10 YRS. OVERALL VERY GOOD PROGNOSIS. MOST RECENT PSA 5.37 (12/13/20) DOES DO CYCLING. Axel Orozco MD [address] [place] [address],[address], [place], [address], [facility] 12/20/2020 16:26:01 02/27/2021 text/html HPI Notes: 2020, he had a right lap inguinal hernia repair. He came with his and son to the visit. Jack 7 up to 70% of a core (left base). MRI ([place]) showed likely capsular invasion in that area. Decipher showed low risk. He works in agriculture. Jack Bañuelos MD [address] [place] [address],[address], [phone], [facility] 02/27/2021 17:48:39 05/08/2021 text/html HPI Notes: He is now 6 weeks post op from a prostatectomy. His Edward has been out for about a month. His continence is good. He is also taking a nightly tadalafil. Jack Bañuelos MD [address] [place] [address],[address], [phone], [facility] 05/08/2021 12:39:01 07/03/2021 text/html HPI Notes: 1) He is now three months s/p prostatectomy. His PSA today is undetectable. 2) His continence recovered quite quickly but then he began to have urgency and some urge incontinence. Nocturia 1-2x. He is quite active on a daily basis. He has been having more issues with depression. Jack Bañuelos MD [address] [place] [address],[place] [address], [place], [address], [facility] 07/03/2021 11:03:56 07/31/2021 text/html HPI Notes: Here for Trimix training. Jack Bañuelos MD [address] [place] [address],[address], [place], [address], [facility] 07/31/2021 17:42:00 10/09/2021 text/html HPI Notes: He is having a tough time with Trimix. He only needs about 0.1. Jack Bañuelos MD [address] [place] [address],[address], [place], [address], [facility] 10/09/2021 10:52:57 04/05/2022 text/html HPI Notes: One y ear out from a prostatectomy for [place] 7 cancer. His continence is good with no use for pads. This took about two months to recover after surgery. Sildenafil has not helped with ED. Cialis works better. He tried Trimix but he was very sensitive to it. He's also needed ice and pseudafed. Since then, he's had a downward curve. Jack Bañuelos MD [address] [place] [address],[address] [place] [address], [phone], [facility] 04/05/2022 10:47:19 05/21/2022 text/html HPI Notes: One y ear out from a prostatectomy for Jack 7 cancer. His continence is good with no use for pads. This took about two months to recover after surgery. Sildenafil has not helped with ED. Cialis works better. He tried Trimix but he was very sensitive to it. He's also needed ice and pseudafed. Since then, he's had a downward curve. 05/21/2022 ([place]): Here for follow up Erectile dysfunction following radical prostatectomy. Has been using Trimix but has been dealing with priapism, thankfully responsive to psuedofed. 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 His continence is good with no use for pads. He has partial erections at times. Viagra gives him a bad headache. Cialis did not cause a headache. He's been doing Trimix but was having issues with priapism. This was at 0.12cc. Using 0.9cc works better. 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 Jack Bañuelos MD [address] [place] [address],[address], [place], [address], [facility] 01/31/2023 15:26:34
--- OUTSIDE RECORDS SUMMARY | 2023-08-05 19:43 | XMS_ITS | Encounter Summary ---
Author Name Unknown Organization [facility] Address [address] [place] [address] Care Team Providers Care Field Sales Executive Name Role Phone Elsewhere, Pcp Primary Care Provider Unavailabl e Reason for Referral * Outpatient (Routine) - Closed Specialty Diagnoses / Procedures Referred By Contac t Referred To Contact Orthopedic Surgery Diagnoses Pain Ankle Bilateral Other Chronic Pain Guillaume Eason M.D. [address] [place] [phone] [facility] Referral ID Status Reason Start Date Expiration Date Visits Re quested Visits Authorized [id number] Closed 05/06/2023 05/05/2024 1 1 WARE APPLICATIONS ARCHITECT Encounter Details Date Type Department Care Team (Late st Contact Info) Description 05/06/2023 [facility] [address] [place] [address] Guillaume Eason M.D. [address], [place] [address] Pain Ankle Bilateral (Primary Dx); Other Chronic Pain Social History Tobacco Use Types Packs/Day Years Used Date Smoking Tobacco: Never Smokeless Tobacco: Never Alcohol Use Standard Drinks/Week Comments Yes 5 (1 standard drink = 0.6 oz pur e alcohol) [facility] Utilities Answer Date Recorded In the past 12 months has th e [employer], gas, oil, or water company threatened to [...] often do you attend chur ch or episcopalian services? More than 4 times per year 02/01/2022 Do you belong to any clubs o r organizations such as mormonism groups, unions, fraternal or athletic groups, or [...] and heating? Not hard at all 02/01/2022 [facility] of Occupat ional Health - Occupational Stress [...] your living situation today? I have a [facility] place to live 05/14/2023 Education Answer [...] as of this encounter Plan of Treatment Scheduled Referrals Name Type Priority Associated Diagnoses Order Schedule Orthopedics Referral Outpatient Referral Routine Pain Ankle Bilateral Other Chronic Pain Expected: 05/06/2023 (Approximate), Expires: 08/04/2024 documented as of this encounter Visit Diagnoses Diagnosis Pain Ankle Bilateral- Primary Other Chronic Pain documented in this encounter Care Teams Field Sales Executive Relationship Specialty Start Date End Date Elsewhere, Pcp PCP - General Internal Medicine 04/24/22 documented as of this encounter
--- OUTSIDE RECORDS SUMMARY | 2023-08-05 19:43 | XMS_ITS | Encounter Summary ---
Author Name Unknown Organization [facility] Address [address] [place] [address] Care Team Providers Care Adaptive Physical Education Specialist Name Role Phone Elsewhere, Pcp Primary Care Provider Unavailabl e Reason for Visit * Reason Onset Date Comments Pre-scheduling Questionnaire 05/06/2023 [facility] Surgery Encounter Details Date Type Department Care Team (Latest Contact Info) Description 05/06/2023 Clinical Communication Department of Orthopedic Surgery in [place], [place] [address] [place] [address] Prescheduling, Provider Pre-scheduling Questionnaire (Orthopedic Surgery ) Social History Tobacco Use Types Packs/Day Years Used Date Smoking Tobacco: Never Smokeless Tobacco: Never Alcohol Use Standard Drinks/Week Comments Yes 5 (1 standard drink = 0.6 oz pur e alcohol) Humiliation, Afraid, Rape, and Kick questionnair e [...] How often do you attend chur or christianity services? More than 4 times per year 02/01/2022 Do you belong to any clubs o r organizations such as mu-ism groups, unions, fraternal or athletic groups, or [...] and heating? Not hard at all 02/01/2022 [facility] of Occupat ional Health - Occupational Stress [...] exercise (like a brisk walk)? 7 days 02/01/2022 On average, how many minutes do you engage in exercise at this level? 30 min 02/01/2022 Hunger Vital Sign Answer Date Recorded Within the past 12 months, y ou worried that your food would run out before you got the money to buy more. Never true 02/02/20 22 Within the past 12 months, t he food you bought just didn't last and you didn't have money to get more. Never true 02/01/2022 PRAPARE - Transportation Answer Date Re corded In the past 12 months, has l ack of transportation kept you from medical appointments or from getting medications? No 01/20 In the past 12 months, has l ack of transportation kept you from meetings, work, or from getting things needed for daily living? No 02/01/2022 Housing Stability Vital Sign Answer Shayne e Recorded In the last 12 months, was t here a time when you were not able to pay the mortgage or rent on time? No 02/01/2022 In the last 12 months, how many places have you lived? 1 02/01/2022 In the last 12 months, was t here a time when you did not have a steady place to sleep or slept in a detention (including now)? No 02/01/2022 Nutrition Answer Date Recorded Nutrition: EVOO Fat Source Yes 02/01 On average, how many serving s of fruits and vegetables do you eat per day (serving size is equal to 1 cup or approximately the size of a tennis ball)? 2-3 02/01/2022 Dental Answer Date Recorded Dental: Regular Dentist Yes 02/02/20 Employment Answer Date Recorded Employment status Retired 02/01/2022 Education Answer Date Recorded What is the [...] on filedocumented in this encounter Care Teams Adaptive Physical Education Specialist Relationship Specialty Start Date End Date Elsewhere, Pcp PCP - General Internal Medicine 04/24/22 documented as of this encounter
--- OUTSIDE RECORDS SUMMARY | 2023-08-26 09:32 | XMS_ITS | Clinical Summary ---
Author Name Unknown Organization [facility] Address [place], [place] [address] Care Team Providers Care Peer Support Specialist Name Role Phone Guillaume Eason MD Primary Care Provider [phone] Allergies No known active allergies Medications Medication [...] Name Administration Dates Next Due COVID-19 vaccine (Akermin NTCause.it 30mcg/0.3mL) PF, MDV 02/16/2021,07/05/2020,06/14/2020 Influenza, IIV3 (Age [...] Comments Blood Pressure 137/76 03/25/2021 7:51 AM SLATE SPLITTING SUPERVISOR Pulse 93 03/25/2021 7:51 AM SLATE SPLITTING SUPERVISOR Temperature 36.9 ??C (98.5 ??F) 03/25/2021 7:51 AM CS T Respiratory Rate 16 03/25/2021 10:00 AM SLATE SPLITTING SUPERVISOR Oxygen Saturation 91% 03/25/2021 10:00 AM SLATE SPLITTING SUPERVISOR Inhaled Oxygen Concentration - - Weight 95.7 kg (211 lb) 03/24/2021 10:00 AM SLATE SPLITTING SUPERVISOR Height 182.9 cm (6') 03/24/2021 10:00 AM SLATE SPLITTING SUPERVISOR Body Mass Index 28.62 03/24/2021 10:00 AM SLATE SPLITTING SUPERVISOR Plan of Treatment Health Maintenance Due Date [...] CDT ANTI HCV Routine 05/31/2014 9:01 AM SLATE SPLITTING SUPERVISOR Need for hepatitis C screening test LIPID PANEL W REFLEX MEASURED LDL Routine 05/31/2014 9:01 AM SLATE SPLITTING SUPERVISOR HTN (hypertension), benign from Last 3 Months [...] 11:06 AM Procedure Code(s): --- Professional --- 96631, Colonoscopy, flexible; diagnostic, including collection of specimen(s) bybrushing or washing, when performed (separateprocedure) Diagnosis Code(s): --- Professional --- Z86.010, Personal history of colonicpolyps K57.30, Diverticulosis of large intestine without perforation or abscess withoutbleeding CPT copyright 2019 [employer]. All rights reserved. The codes documented in this report are preliminary and upon laboratory animal facility supervisor reviewmay be revised to meet current compliance requirements. Scope In: 11:43:49 AM Scope Withdrawal Time 0 hours 8 minutes 0 seconds Scope Out: 11:55:54 AM Sammy Flores MD PROCEDURE ORD * (ABNORMAL) LIPID PANEL W REFLEX MEASURED LDL (05/31/2014 9:01 AM SLATE SPLITTING SUPERVISOR) CHOLESTEROL,TOTAL 174 100 - 199 mg/dL 05/31/2014 9:39 AM [facility] TRIGLYCERIDES 140 <150 mg/dL 05/31/2014 9:39 AM [facility] HDL CHOLESTEROL 36(L) >40 mg/dL 5 9:39 AM [facility] NON-HDL CHOLESTEROL 138 <145 mg/dl 05/31/2014 9:39 AM [facility] CHOL/HDL RATIO 4.83(H) <4.50 05/31/2014 9:39 AM [facility] LDL CHOLESTEROL 110 <=130 mg/dL 05/31/2014 9:39 AM SLATE SPLITTING SUPERVISOR [facility] PATIENT STATUS FASTING 05/31/2014 9:39 AM SLATE SPLITTING SUPERVISOR [facility] Blood specimen (specimen) BLOOD SPECIMEN / Unknown Venipuncture / Unknown 05/31/2014 9:01 AM SLATE SPLITTING SUPERVISOR 05/31/2014 9:01 AM SLATE SPLITTING SUPERVISOR Kimberly Dominique DO CHEMISTRY [facility] [address] [place] [address], * ANTI HCV [15414.2] (05/31/2014 9:01 AM SLATE SPLITTING SUPERVISOR) HEPATITIS C ANTIBODY Non-Reacti ve Non-Reacti ve 05/31/2014 2:09 PM SLATE SPLITTING SUPERVISOR [facility] Blood specimen (specimen) BLOOD SPECIMEN / Unknown Venipuncture / Unknown 05/31/2014 9:01 AM SLATE SPLITTING SUPERVISOR 05/31/2014 9:01 AM SLATE SPLITTING SUPERVISOR Narrative [facility] - 05/31/2014 2:09 PM SLATE SPLITTING SUPERVISOR Antibodies to HCV not detected; does not exclude the possibility of exposure to HCV. Kimberly Dominique DO SEND OUTS [facility] [address] [place] [address], [place] from Last 3 Months or Most Recently Relevant to Health Maintenance Advance Directives * Full Code (Latest Code Status on File) Date Activated Date Inactivated Comments 03/24/2021 9:36 AM 03/25/2021 6:55 PM Question Answer Comments Code Status Discussion: Unable to Assess Preferences, Provider to review later Care Teams Peer Support Specialist Relationship Specialty Start Date End Date Guillaume Eason MD [address] [place] [address] PCP - General Family Practice 12/15/19
--- OUTSIDE RECORDS SUMMARY | 2023-08-26 09:33 | XMS_ITS | Encounter Summary ---
Author Name Unknown Organization [facility] Address [address] [place] [address] Care Team Providers Care Asphalt Screed Operator Name Role Phone Elsewhere, Pcp Primary Care Provider Unavailabl e Encounter Details Date Type Department Care Team (Late st Contact Info) Description 05/06/2023 Clinical Communication Department of Orthopedic Surgery in [place], [place] [address] [place] [address] Provider, Unknown Social History Tobacco Use Types Packs/Day Years Used Date Smoking Tobacco: Never Smokeless Tobacco: Never Alcohol Use Standard Drinks/Week Comments Yes 5 (1 standard drink = 0.6 oz pur e alcohol) [facility] Utilities Answer Date Recorded In the past 12 months has e electric, gas, oil, or water [employer] threatened to shut off services in your [...] often do you attend chur ch or yazidism services? More than 4 times per year 02/01/2022 Do you belong to any clubs o r organizations such as adventist groups, unions, fraternal or athletic groups, or [...] and heating? Not hard at all 02/01/2022 [facility] of Occupat ional Health - Occupational [...] your living situation today? I have a [facility] place to live 05/14/2023 Education Answer Date [...] on filedocumented in this encounter Care Teams Asphalt Screed Operator Relationship Specialty Start Date End Date Elsewhere, Pcp PCP - General Internal Medicine 04/24/22 documented as of this encounter
--- OUTSIDE RECORDS SUMMARY | 2023-08-26 09:33 | XMS_ITS | Encounter Summary ---
Author Name Unknown Organization [facility] Address [address] [place] [address] Care Team Providers Care Freelance Writer Name Role Phone Elsewhere, Pcp Primary Care Provider Unavailabl e Encounter Details Date Type Department Care Team (Late st Contact Info) Description 05/14/2023 Orders Only Department of Orthopedic Surgery in [place], [place] [address] [place] [address] [facility], Provider Pain Ankle Bilateral Social History Tobacco Use Types Packs/Day Years Used Date Smoking Tobacco: Never Smokeless Tobacco: Never Alcohol Use Standard Drinks/Week Comments Yes 5 (1 standard drink = 0.6 oz pur e alcohol) [facility] Utilities Answer Date Recorded In the past 12 months has e [employer], gas, oil, or water [employer] threatened to shut off services in your [...] often do you attend chur ch or restoration services? More than 4 times per year 02/01/2022 Do you belong to any clubs o r organizations such as latter-day groups, unions, fraternal or athletic groups, or [...] and heating? Not hard at all 02/01/2022 [facility] of Occupat ional Health - Occupational Stress [...] your living situation today? I have a [facility] place to live 05/14/2023 Education Answer [...] Bilateral documented in this encounter Care Teams Freelance Writer Relationship Specialty Start Date End Date Elsewhere, Pcp PCP - General Internal Medicine 04/24/22 documented as of this encounter
--- OUTSIDE RECORDS SUMMARY | 2023-08-26 09:33 | XMS_ITS | Data Portability ---
Author Name Unknown Address [address] [place] [address] Phone [phone] Organization [facility] Address [address] [place] [address] Care Team Providers Care Certified Wellness Program Coordinator Name Role Phone [facility] Primary Care Provider [phone] Assessment Encounter Date Assessment Date Assessment LastModified [...] 21:44:29 09/09/2020 09/09/2020 64 Y/O MALE, FROM [place] , HX OF A SLIGHTLY ELEVATED PSA [...] Organization Details Last Modified Time Details Appointments None recorded. Lab PSA, serum or plasma 2022 023 [email or web address] [facility], [address], [place], [address], 15:21:27 PSA, serum or plasma 2021 022 [email or web address] [facility], [address], [place], [address], 2 10:32:40 PSA, serum or plasma 2021 022 [email or web address] Not available 10:37:02 PSA, serum or plasma 2021 022 [email or web address] Not available 10:30:57 PSA, total, serum or plasma 2021 022 [email or web address] Not available 17:31:41 Referral None recorded. Procedures None recorded. Surgeries inflatable penile prosthesis, insertion of (SURG) 2021 022 [email or web address] Not available 10:35:26 prostatecto my, laparoscopi c, robotic (SURG) 2020 021 [email or web address] Not available 13:20:58 Imaging None recorded. Medication Orders tadalafil 20 mg tablet 2022 023 [facility], [place], [place], [address] [place], [address], 3 15:26:01 compounded medication 2022 023 OVANDO [facility], [address] [place], [place], [id number], 3 17:41:11 compounded medication 2022 023 [facility], [address], [place], [place], [id number], 3 17:41:11 tadalafil 20 mg tablet 2021 022 [facility], [place], [address] [place], [address], 2 10:45:08 cefdinir 300 mg capsule 2020 022 [facility] [address] [employer], [facility] [address] , [place], [address], 2 11:57:10 ceftriaxone 1 gram solution for injection 2020 021 Not available 16:47:23 ceftriaxone 1 gram solution for injection 2020 021 Not available 16:47:23 Patient TargetsNo targets recorded. Patient Instructions Encounter Date Encounter Id Patient Instructions Last Modified By Organization Details Last Modified Time 04/05/2021 [id number] RTC by this afternoon if having issues with urinary retention. [email or web address] Not available 04/05/2021 09:48:24 Reason for Referral None Reported. Results Created Date Observation Date Name Description Value Unit Range Abnormal Flag LastModifiedBy Organization Detail LastModifiedTime 07/04/19 22 07/03/2021 PSA, serum or plasm a PSA, Total <0.04n g/mL Not Available [facility] [address], [place], [address], 07/03/2021 10:30:41 10/10/19 22 10/09/2021 PSA, serum or plasm a PSA, Total <0.04 ng/ml Not Available [facility] [address], [place], [address], 10/09/2021 10:36:49 04/05/20 22 04/05/2022 PSA, serum or plasm a PSA <0.04 0-4.0 Not Available [facility] [address], [place], [address], 04/05/2022 10:19:10 02/01/20 23 01/31/2023 PSA, serum or plasm a PSA <0.04 ng/ml 0-4.0 Not Available [facility] [address], [place], [address], 01/31/2023 15:08:39 06/22/19 21 06/20/2020 US, prost ate No observ ation record ed. Not Available 06/28/2020 11:59:53 08/10/19 21 08/01/2020 CT, abdom en + pelvi s, w/ contr ast No observ ation record ed. [email or web address] Radiology Department [address] [place], [address], 08/19/2020 10:06:28 08/19/19 21 08/16/2020 NM, bone scan, whole body No observ ation record ed. [facility] Radiology Department [address] [place], [address], 08/22/2020 17:36:29 02/08/20 21 02/07/2021 MRI, prost ate, w/wo contr ast No observ ation record ed. [facility] [address] , [place], [address], 02/21/2021 15:31:49 03/27/20 21 03/25/2021 imagi ng/di [...] location. First PSA negative. Jack Bañuelos MD [address] [place] [address],[address], [address] , [facility] 2 10:52:34 Problem Notes None recorded. Procedures Surgical History Date Name Laterality Status Provider Name and Address Organization Details Recorded Time 3 MIX MAKER/blood draw completed Jack Bañuelos MD [address] [place] [address],[address], [address], [facility] 01/31/2023 15:08:36 3 arthrodesis completed Srini Durant MD [address] [place] [address],[address], [address], [facility] 05/21/2022 16:43:43 2 Blood Draw/MIX MAKER/PSA RESULTS completed Kim hidalgo [facility] 04/05/2022 10:19:04 2 Blood Draw/MIX MAKER/PSA RESULTS completed Chelsea hidalgo [facility] 10/09/2021 10:46:34 2 DT Penile Injection Teaching completed Jack Bañuelos MD [address] [place] [address],[address], [address], [facility] 07/31/2021 16:40:32 2 Blood Draw/MIX MAKER/PSA RESULTS completed Jack Bañuelos MD [address] [place] [address],[address], [address], [facility] 07/03/2021 10:30:31 1 Edward Catheter Removal completed Maryellencrow Duron null, [facility] 04/05/2021 09:48:00 1 PROSTATECTOMY, LAPAROSCOPIC, ROBOTIC (SURG) completed Gloria Alanizdilma hidalgo, [facility] 03/28/2021 13:21:03 1 Prostate Biopsy Procedure completed Srini Durant MD [address], [place], [address], [place] [facility] 06/20/2020 10:15:50 0 Colonoscopy completed Axel Orozco MD [address], [place], [address], [place] [facility] 12/20/2020 16:01:08 Imaging Results Imaging Date Name Status LastModified by Organiz ation Details LastModified Time 06/20/2020 US, prostate completed Information not available 06/28/2020 11:59:53 08/01/2020 CT, abdomen + pelvis, w/ contrast completed [facility] Radiology Department [address] [place], [address], 08/19/2020 10:06:28 08/16/2020 [place], bone scan, whole body completed [address] Radiology Department [address] [place], [address], 08/22/2020 17:36:29 02/07/2021 MRI, prostate, w/wo contrast completed [email or web address] [facility] [address], [address], 02/21/2021 15:31:49 03/25/2021 imaging/diagn ostic result completed [...] 2022 active Not Available Not Available Not Av lab compounded medication Inject 20 units intracave rnosal [...] Available Not Available prednisone 20 mg tablet TAKE 3 TABLETS BY MOUTH DAYS 1 -3, 2 TABLETS DAYS 4-6, THEN 1 TABLET DAYS 7-9 active Not Available Not Available No t Available sildenafil 100 mg tablet TAKE ONE [...] HOURS NEEDED FOR PAIN/TAYLOR RE PAIN--SCO RE *P AIN NOT RELIEVED BY TYLENOL 05/21 completed [...] Updated DateTime 04/05/2022 182.88 cm 28.5 kg/m2 95895.4 g SOO Brock - [facility] 04/05/2022 10:18:24 Date Recorded Body height Body mass index (BMI) Body weight Provider Name and Address Organization Details Last Updated DateTime 05/21/2022 182.88 cm 28.5 kg/m2 64756.4 g Lashaun Jose C hidalgo, [facility] 05/21/2022 16:35:26 Date Recorded Body height Body mass index (BMI) Body weight Provider Name and Address Organization Details Last Updated DateTime 01/31/2023 182.88 cm 28.5 kg/m2 56504.4 g Jack Bañuelos MD [address] [place] [address],[address], [address], [facility] 01/31/2023 15:07:54 Date Recorded Body height Body mass index (BMI) Body weight Provider Name and Address Organization Details Last Updated DateTime 08/18/2020 182.88 cm 29.2 kg/m2 44881.36 estrella Orozco MD [address] [place] [address],[place] [address], [facility] 08/18/2020 16:46:59 Date Recorded Body height Body mass index (BMI) Body weight Provider Name and Address Organization Details Last Updated DateTime 09/09/2020 182.88 cm 29.2 kg/m2 50947.36 estrella Orozco MD [address] [place] [address],[address] [place] [address], [address], [facility] 09/09/2020 12:32:46 Date Recorded Body height Body mass index (BMI) Body weight Provider Name and Address Organization Details Last Updated DateTime 12/20/2020 182.88 cm 29.2 kg/m2 00384.36 estrella Orozco MD [address] [place] [address],[address] [place] [address], [address], [facility] 12/20/2020 16:00:11 Date Recorded Body height Provider Name an d Address Organization Details Last Updated DateTime 02/27/2021 182.88 cm Lalito [facility], [facility] 02/27/2021 16:32:16 Date Recorded Body height Body mass index (BMI) Body weight Provider Name and Address Organization Details Last Updated DateTime 05/08/2021 182.88 cm 28.5 kg/m2 71319.4 g Jack Bañuelos MD [address] [place] [address],[address], [address], [facility] 05/08/2021 11:55:54 Date Recorded Body height Body mass index (BMI) Body weight Provider Name and Address Organization Details Last Updated DateTime 07/03/2021 182.88 cm 28.5 kg/m2 19047.4 g Jack Bañuelos MD [address] [place] [address],[place] [address], [place], [place], [address] [place] [address], [facility] 07/03/2021 10:27:53 Date Recorded Body height Body mass index (BMI) Body weight Provider Name and Address Organization Details Last Updated DateTime 07/31/2021 182.88 cm 28.5 kg/m2 19254.4 g Jack Bañuelos MD [address] [place] [address],[facility] [address], [place], [address], [facility] 07/31/2021 16:36:45 Date Recorded Body height Body mass index (BMI) Body weight Provider Name and Address Organization Details Last Updated DateTime 10/09/2021 182.88 cm 28.5 kg/m2 35065.4 g Jack Bañuelos MD [address] [place] [address],[address], [address], [facility] 10/09/2021 10:35:45 Social History Question Answer Notes LastModified by Organizat ion Details LastModified Time Tobacco Smoking Status Never Smoker Axel Orozco MD [address] [place] [address],[place] [address], [place], [address], [facility] 08/18/2020 16:48:06 What Is Your Level [...] mcg/0.3 mL dose 02/16/2021 completed Anushka hidalgo [facility] 02/08/2023 14:30:24 COVID-19, mRNA, LNP-S, PF, 30 mcg/0.3 mL dose 06/14/2020 completed Anushka hidalgo [facility] 02/08/2023 14:30:24 Tdap 03/08/2011 completed Jack Bañuelos MD [address] [place] [address],[address] [place] [address], [address], [facility] 07/03/2021 10:28:35 Pneumococcal conjugate PCV 13 09/29/2018 completed Jack Bañuelos MD [address] [place] [address],[address], [address], [facility] 07/03/2021 10:28:35 pneumococcal polysaccharide PPV23 12/11/2019 completed Jack Bañuelos MD [address] [place] [address],[address], [place], [address], [facility] 07/03/2021 10:28:35 COVID-19, mRNA, LNP-S, PF, 30 mcg/0.3 mL dose 07/05/2020 completed Anushka hidalgo [facility] 02/08/2023 14:30:24 Influenza, injectable,quadrival ent, preservative free, pediatric 05/04/2013 completed Anushka hidalgo [facility] 02/08/2023 14:30:23 Influenza, injectable, MDCK, preservative free, quadrivalent 02/25/2018 completed Anushka hidalgo [facility] 02/08/2023 14:30:23 influenza, high-dose, quadrivalent 03/21/2021 avery hidalgo [facility] 02/08/2023 14:30:23 Tdap 03/21/2021 [facility] 14:30:24 Influenza, high dose seasonal 02/06/2019 [facility] 14:30:24 Influenza, seasonal, injectable 04/18/2012 [facility] 14:30:24 Influenza, seasonal, injectable 04/21/2011 [facility] 14:30:24 Influenza, seasonal, injectable, preservative free 04/24/2016 [facility] 14:30:24 Influenza, seasonal, injectable, preservative free 04/12/2015 [facility] 14:30:24 influenza, injectable, quadrivalent, preservative free 01/25/2017 [facility] 14:30:24 influenza, injectable, quadrivalent, preservative free 04/10/2014 [facility] 14:30:24 influenza, high-dose, quadrivalent 03/22/2022 [facility] 12:10:30 Influenza vaccine, quadrivalent, adjuvanted 01/18/2023 [facility] 12:11:00 COVID-19, mRNA, LNP-S, PF, 30 mcg/0.3 mL dose, eli-sucrose 11/23/2021 [facility] 12:10:30 Past Encounters Encounter ID Performer Location Encounter Start Date Encounter Closed Date Diagnosis/Indication Diagnosis SNOMED-CT Code [id number] Srini Durant MD [facility] [address] [place] [address] 06/20/2020 09:37:37 06/22/2020 08:25:23 Prostate specific antigen above reference range [id number] Lamonte Aponte [facility] [address] [place] [address] 06/20/2020 09:37:37 06/22/2020 03:53:39 [id number] MD Savanna Granados [address] [place] [address] 08/18/2020 16:31:33 08/19/2020 14:53:15 Malignant tumor of prostate [id number] MD Savanna Granados [address] [place] [address] 09/09/2020 12:24:52 09/12/2020 10:25:50 Malignant tumor of prostate [id number] MD LAURO [facility] [address] [place] [id number] 12/20/2020 15:43:29 12/21/2020 14:32:48 Malignant tumor of prostate 469324018 [id number] MD Savanna Gan [address] [place] [address] 02/27/2021 15:52:46 03/01/2021 10:17:08 Malignant tumor of prostate [id number] MD Savanna Gan [address] [place] [address] 04/05/2021 09:22:24 04/11/2021 03:53:09 Acute urinary tract infection [id number] MD Savanna Gan [address] [place] [id number] 05/08/2021 11:46:48 05/09/2021 12:44:30 Carcinoma of prostate [id number] MD Savanna Gan [address] [place] [address] 07/03/2021 10:19:15 07/05/2021 10:19:24 Malignant tumor of prostate 956930148 Secondary erectile dysfunction 151956413 [id number] Jack Bañuelos MD [facility] [address] [place] [address] 07/31/2021 16:17:25 08/03/2021 14:17:46 Secondary erectile dysfunction 678174685 [id number] Jack Bañuelos MD [facility] [address] [place] [address] 10/09/2021 10:20:21 10/11/2021 14:42:00 Malignant tumor of prostate 224303747 Secondary erectile dysfunction 112252765 [id number] Lorie Dumont [facility] [address] [place] [address] 04/05/2022 10:04:52 04/09/2022 16:41:28 Malignant tumor of prostate 163631661 Secondary erectile dysfunction 216101804 [id number] Srini Durant MD [facility] [address] [place] [address] 05/21/2022 16:23:46 05/25/2022 09:14:53 Malignant tumor of prostate 955663630 Secondary erectile dysfunction 113275739 [id number] Jack Bañuelos MD [facility] [address] [place] [address] 01/31/2023 14:50:24 02/13/2023 13:25:12 Malignant tumor of prostate 784532157 Secondary erectile dysfunction 230132869 Health Concerns Section Related Observation LastModified by Organization Detai ls LastModified Time None Recorded Concern Status LastModified by Organization Details LastModified Time None Recorded Advance Directives Directive None Recorded Payers Encounter Date Sequence Insurance Name Policy Number Policy Vidal Covered Member ID Vidal Member ID Guarantor Name 01/31/2023 1 [place] [id number] Lalito Jaeger [id number] Lalito Jaeger 05/21/2022 1 [place] [id number] Lalito Jaeger [id number] Lalito Jaeger 04/05/2022 1 [place] [id number] Lalito Hernandezer [id number] Lalito Jagdeep Mil 10/09/2021 1 [place] [id number] Lalito Hernandezer [id number] Lalito J Mil 07/31/2021 1 [place] [id number] Lalito Hernandezer [id number] Lalito Jagdeep Mil 07/03/2021 1 [place] [id number] Lalito Hernandezer [id number] Lalito Jagdeep Mil 05/08/2021 1 [place] [id number] Lalito Hernandezer [id number] Lalito Jagdeep Mil 04/05/2021 1 [place] [id number] Lalito Hernandezer [id number] Lalito J Mil 02/27/2021 1 [place] [id number] Lalito Hernandezer [id number] Lalito J Mil 12/20/2020 1 [place] [id number] Lalito Asifrader [id number] Lalito J Mil 09/09/2020 1 [place] [id number] Lalito Hernandezer [id number] Lalito Gannon Mil 08/18/2020 1 [place] [id number] Lalito Gannon Mil [id number] Lalito Gannon Mil 06/20/2020 1 [place] [id number] Lalito Gannon Mil [id number] Lalito Gannon Mil 06/20/2020 1 [place] [id number] Lalito Gannon Mil [id number] Lalito Gannon Mil Notes Date Note Type Note Provider Name and Address Organization Details Recorded Time 06/20/2020 text/html HPI Notes: 64 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 Here today for prostate biopsy. Srini Durant MD [address] [place] [address],[address], [place], [address], [facility] 06/21/2020 17:39:17 08/18/2020 text/html HPI Notes: 64 HE RE FOR CANCER TALK. ELEVATED PSA 4.3. HAD TRUS 06/20/20 JACK 7(3,4), G6(3,3) LEFT LOBE FOCAL G6(3,3). HAD NEG BONE AND CT SCANS. OVERALL EXCELLENT HEALTH. REVIEWED ALL OPTIONS- WATCHFUL WAITING, RADIATION, CRYOTHERAPY, ROBOTIC SURGERY, HORMONAL THERAPY OR COMBINATION THERAPY. ALL QUESTIONS ANSWERED. Axel Orozco MD [address] [place] [address],[address] [place] [address], [address], [facility] 08/18/2020 21:45:37 09/09/2020 text/html HPI Notes: 64 HE RE TO REVIEW DECIPHER RESULTS. HX ELEVATED PSA 4.3. HAD TRUS 06/20/20 JACK 7(3,4), G6(3,3) LEFT LOBE FOCAL G6(3,3) -5% RT LOBE. . HAD NEG BONE AND CT SCANS. OVERALL EXCELLENT HEALTH. DICIPHER SCORE SHOWED LOW RISK -1% -5 YRS, 2.5 % AT 10 YRS. OVERALL VERY GOOD PROGNOSIS. 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 Axel Orozco MD [address] [place] [address],[address], [place], [address], [facility] 12/20/2020 16:26:01 02/27/2021 text/html HPI Notes: Franca yvon of 2020, he had a right lap inguinal hernia repair. He came with his and son to the visit. Jack 7 up to 70% of a core (left base). MRI ([facility]) showed likely capsular invasion in that area. Decipher showed low risk. He works in agriculture. Jack Bañuelos MD [address] [place] [address],[place] [address], [place], [address], [facility] 02/27/2021 17:48:39 05/08/2021 text/html HPI Notes: He is now 6 weeks post op from a prostatectomy. His Edward has been out for about a month. His continence is good. He is also taking a nightly tadalafil. Jack Bañuelos MD [address] [place] [address],[place] [address], [place], [address], [facility] 05/08/2021 12:39:01 07/03/2021 text/html HPI Notes: 1) He is now three months s/p prostatectomy. His PSA today is undetectable. 2) His continence recovered quite quickly but then he began to have urgency and some urge incontinence. Nocturia 1-2x. He is quite active on a daily basis. He has been having more issues with depression. Jack Bañuelos MD [address] [place] [address],[place] [address], [place], [address], [facility] 07/03/2021 11:03:56 07/31/2021 text/html HPI Notes: Here for Trimix training. Jack Bañuelos MD [address] [place] [address],[address], [address], [facility] 07/31/2021 17:42:00 10/09/2021 text/html HPI Notes: He is having a tough time with Trimix. He only needs about 0.1. Jack Bañuelos MD [address] [place] [address],[address], [address], [facility] 10/09/2021 10:52:57 04/05/2022 text/html HPI Notes: One y ear out from a prostatectomy for Jack 7 cancer. His continence is good with no use for pads. This took about two months to recover after surgery. Sildenafil has not helped with ED. Leolas works better. He tried Trimix but he was very sensitive to it. He's also needed ice and pseudafed. Since then, he's had a downward curve. Jack Bañuelos MD [address] [place] [address],[address] [place] [address], [address], [facility] 04/05/2022 10:47:19 05/21/2022 text/html HPI Notes: One [...] thankfully responsive to psuedofed. Srini Durant MD [address] [place] [address],[address], [address], [facility] 05/21/2022 17:32:27 01/31/2023 text/html HPI Notes: [...] mild form of leukemia. Jack Bañuelos MD [address] [place] [address],[address], [place], [address], [facility] 01/31/2023 15:26:34
--- OUTSIDE RECORDS SUMMARY | 2023-08-26 09:33 | XMS_ITS | Referral Summary ---
Author Name Unknown Organization [facility] Address [address] [place] [address] Care Team Providers Care Finish Specialist Name Role Phone Elsewhere, Pcp Primary Care Provider Unavailabl e Source Comments Patient records contain information from all sites at [facility]. For routine questions regarding patient records, call [phone] during business hours, M-F 8:00 AM - 5:00 PM Central Time. Record requests for emergency care only can be directed to [phone] at any time.[facility] Allergies Active Allergy Reactions Criticality Noted [...] = 0.6 oz pur e alcohol) [facility] [employer] AB[employer] Answer Date Recorded In the past 12 months has e [employer], gas, oil, or water [employer] threatened to shut off services in your [...] often do you attend chur ch or church services? More than 4 times per year 02/01/2022 Do you belong to any clubs o r organizations such as methodist groups, unions, fraternal or athletic groups, or [...] and heating? Not hard at all 02/01/2022 [facility] of Occupat ional Health - Occupational Stress [...] Comments Blood Pressure 144/83 04/24/2022 1:00 PM CURING MACHINE OPERATOR Pulse 53 04/24/2022 1:15 PM CURING MACHINE OPERATOR Temperature 36.5 ??C (97.7 ??F) 04/24/2022 2:28 PM CS T Respiratory Rate 12 04/24/2022 1:15 PM CURING MACHINE OPERATOR Oxygen Saturation 96% 04/24/2022 1:15 PM CURING MACHINE OPERATOR Inhaled Oxygen Concentration - - Weight 96.1 kg (211 lb 13.8 oz) 04/24/2022 7:48 AM CURING MACHINE OPERATOR Height - - Body Mass Index - - Plan of Treatment Not on file Medical Devices Implanted Type Area Crayon Sorting Machine Feeder Device Identifier Shelf Expiration Date Model / Serial / Lot Grft Ost Fill Chp 5cc - [id number] - [id number] Implanted:Qty : 1 on 04/24/2022 by Michael Unger D.O., M.S. at [facility] Bone or Tissue [employer] 04/19/2026 [id number] / [id number] / Grft Ostsel Pty 1cc - [id number] - [id number] Implanted:Qty : 1 on 04/24/2022 by Michael Unger D.O., M.S. at [facility] [employer] 11/02/2024 [id number] / [id number] / Scrw Lck 2.4x16 - [id number] Implanted:Qty : 3 on 04/24/2022 by Michael Unger D.O., M.S. at [facility] Hardware e.g. pins/screws/ rods Right: Wrist [employer] [id number] / / Scrw Lck 2.4x10 - [id number] Implanted:Qty : 1 on 04/24/2022 by Michael Unger D.O., M.S. at [facility] Hardware e.g. pins/screws/ rods Right: Wrist [employer] [id number] / / Plt Wrst Cup Fsn 10h 18 - [id number] Implanted:Qty : 1 on 04/24/2022 by Michael Unger D.O., M.S. at [facility] Hardware e.g. pins/screws/ rods Right: Wrist [employer] [id number] / / Scrw Lck 2.4x12 - [id number] Implanted:Qty : 3 on 04/24/2022 by Michael Unger D.O., M.S. at [facility] Hardware e.g. pins/screws/ rods Right: Wrist [employer] [id number] / / Scrw Lck 2.4x14 - [id number] Implanted:Qty : 3 on 04/24/2022 by Michael Unger D.O., M.S. at [facility] Hardware e.g. pins/screws/ rods Right: Wrist [employer] [id number] / / Mesh Or Patch Mesh or Patch Right: Abdomen Description:hernia Misc Other Misc Other Eye Description:cataracts [employer] Granules Implanted:Qty : 1 on 04/24/2022 by Michael Unger D.O., M.S. at [facility] Orthopedic Other [employer] [id number] 06/19/2024 [id number] / / [id number] [employer] Ganules Implanted:Qty : 1 on 04/24/2022 by Michael Unger D.O., M.S. at [facility] Orthopedic Other [employer] [id number] 06/19/2024 [id number] / / [id number] Procedures Procedure Name Priority Date/Time Associated Diagnosis Comments BASIC METABOLIC PANEL, S/P Routine 04/03/2022 11:05 AM CURING MACHINE OPERATOR Preanesthetic Medical Exam from Last 3 Months or Most Recently Relevant to Health Maintenance Results * (ABNORMAL) Basic Metabolic Panel (04/03/2022 11:05 AM CURING MACHINE OPERATOR) Potassium, S 4.2 3.6 - 5.2 mmol/L 04/03/2022 12:06 PM CURING MACHINE OPERATOR DTL Sodium, S 142 135 - 145 mmol/L 04/03/2022 12:06 PM CURING MACHINE OPERATOR DTL Chloride, S 105 98 - 107 mmol/L 04/03/2022 12:06 PM CURING MACHINE OPERATOR DTL Bicarbonate, S 30(H) 22 - 29 mmol/L 04/03/2022 12:06 PM CURING MACHINE OPERATOR DTL Anion Gap 7 7 - 15 04/03/2022 12:06 PM CURING MACHINE OPERATOR DTL BUN (Blood Urea Nitrogen), S 21 8 - 24 mg/dL 04/03/2022 12:06 PM CURING MACHINE OPERATOR DTL Creatinine 1.31 0.74 - 1.35 mg/dL 04/03/2022 12:06 PM CURING MACHINE OPERATOR DTL Estimated GFR (eGFR) 59(L) >=60 mL/min/BSA 04/03/2022 12:06 PM CURING MACHINE OPERATOR DTL Comment: Estimated GFR calculated using the 2020 CKD_EPI creatinine equation. Calcium, Total, S 9.1 8.8 - 10.2 mg/dL 04/03/2022 12:06 PM CURING MACHINE OPERATOR DTL Glucose, S 95 70 - 140 mg/dL 04/03/2022 12:06 PM CURING MACHINE OPERATOR DTL Blood (Blood, Venous) 04/03/2022 11:05 AM CURING MACHINE OPERATOR 04/03/2022 11:44 AM CURING MACHINE OPERATOR Marie Vallecillo APRN, C.N.P. LAB BLOOD ADD-ON [facility] [address] [place] [address], [facility] DTL [facility] [place] [place] [address] [place] [address] from Last 3 Months or Most Recently Relevant to Health Maintenance Care Teams Finish Specialist Relationship Specialty Start Date End Date Elsewhere, Pcp PCP - General Internal Medicine 04/24/22
--- OUTSIDE RECORDS SUMMARY | 2023-08-26 09:33 | XMS_ITS | Clinical Summary ---
Author Name Unknown Organization [facility] Address [address] [place] [address] Care Team Providers Care Triage Technician Name Role Phone Elsewhere, Pcp Primary Care Provider Unavailabl e Source Comments Patient records contain information from all sites at [facility]. For routine questions regarding patient records, call [phone] during business hours, M-F 8:00 AM - 5:00 PM Central Time. Record requests for emergency care only can be directed to [phone] at any time.[facility] Allergies Active Allergy Reactions Criticality Noted Date [...] And Subcutaneous Tissue Of Other Sites 03/12/2011 Family History Medical History Relation Name Comments [...] drink = 0.6 oz pur e alcohol) [facility] Utilities Answer Date Recorded In the past 12 months has e [employer], gas, oil, or water [employer] threatened to shut off services in your [...] week 02/01/2022 How often do you attend [facility] or congregational services? More than 4 times per year 02/01/2022 Do you belong to any clubs o r organizations such as jew groups, unions, fraternal or athletic groups, or [...] heating? Not hard at all 02/01/2022 [facility] of Occupat ional Health - Occupational [...] Comments Blood Pressure 144/83 04/24/2022 1:00 PM PRECISION LENS CENTERER AND EDGER Pulse 53 04/24/2022 1:15 PM PRECISION LENS CENTERER AND EDGER Temperature 36.5 ??C (97.7 ??F) 04/24/2022 2:28 PM CS T Respiratory Rate 12 04/24/2022 1:15 PM PRECISION LENS CENTERER AND EDGER Oxygen Saturation 96% 04/24/2022 1:15 PM PRECISION LENS CENTERER AND EDGER Inhaled Oxygen Concentration - - Weight 96.1 kg (211 lb 13.8 oz) 04/24/2022 7:48 AM PRECISION LENS CENTERER AND EDGER Height - - Body Mass Index - - Plan of Treatment Health Maintenance Due Date Last Done Comments CT Colonography 1953 Cologuard 1955 Depression Monitoring (PHQ-9) 1953 Hepatitis C Screening 1953 Lipid (Cholesterol) Screening 1953 Office Visit for Blood Press ure Check / Re-check 1953 Creatinine Level (Kidney Fun ction Test) 04/03/2023 04/03/2022, 03/25/2021, 05/18/2020 Potassium Level 04/03/2023 04/03/2022, 1207/2020, 05/18/2020 Sodium Level 04/03/2023 04/03/2022, 12/07/2020, 05/18/2020 Fall Risk Screen (Annual) 04/22/2023 Zoster Vaccines (2 of 2) 05/07/2023 03/12/2023 COVID-19 Vaccine (6 - 2022-2 4 season) 2023 04/11/2023, 11/23/2021, 02/16/2021, Additional history exists Colonoscopy 11/20/2024 11/21/2019 Colorectal Cancer Surveillance 11/20/2024 Fasting Glucose for Diabetes Screening 04/03/2025 04/03/2022, 03/25/2021, 05/18/2020 DTaP,Tdap,and Td Vaccines (3 - Td or Tdap) 03/21/2031 03/21/2021, 03/08/2011 Influenza Vaccine Completed 01/18/2023, , 03/21/2021, Additional history exists Pneumococcal vaccine (65+ years) Completed 03/12/2023, 12/11/2019, 09/29/2018 Medical Devices Implanted Type Area Regional Administrative Assistant Device Identifier Shelf Expiration Date Model / Serial / Lot Grft Ost Fill Chp 5cc - [id number] - [id number] Implanted:Qty : 1 on 04/24/2022 by Michael Unger D.O., M.S. at [facility] Bone [employer] Tissue [employer] 04/19/2026 [id number] / [id number] / Grft Ostsel Pty 1cc - [id number] - [id number] Implanted:Qty : 1 on 04/24/2022 by Michael Unger D.O., M.S. at [facility] [employer] 11/02/2024 [id number] / [id number] / Scrw Lck 2.4x16 - [id number] Implanted:Qty : 3 on 04/24/2022 by Michael Unger D.O., M.S. at [facility] Hardware e.g. pins/screws/ rods Right: Wrist [employer] [id number] / / Scrw Lck 2.4x10 - [id number] Implanted:Qty : 1 on 04/24/2022 by Michael Unger D.O., M.S. at [facility] Hardware e.g. pins/screws/ rods Right: Wrist [employer] [id number] / / Plt Wrst Cup Fsn 10h 18 - [id number] Implanted:Qty : 1 on 04/24/2022 by Michael Unger D.O., M.S. at [facility] Hardware e.g. pins/screws/ rods Right: Wrist [employer] FC10 / / Scrw Lck 2.4x12 - [id number] Implanted:Qty : 3 on 04/24/2022 by Michael Unger D.O., M.S. at [facility] Hardware e.g. pins/screws/ rods Right: Wrist [employer] [id number] / / Scrw Lck 2.4x14 - [id number] Implanted:Qty : 3 on 04/24/2022 by Michael Unger D.O., M.S. at [facility] Hardware e.g. pins/screws/ rods Right: Wrist [employer] [id number] / / Mesh Or Patch Mesh or Patch Right: Abdomen Description:hernia Misc Other Misc Other Eye Description:cataracts [employer] Granules Implanted:Qty : 1 on 04/24/2022 by iMchael Unger D.O., M.S. at [facility] Orthopedic Other [employer] [id number] 06/19/2024 [id number] / / [id number] [employer] Ganules Implanted:Qty : 1 on 04/24/2022 by Michael Unger D.O., M.S. at [facility] Orthopedic Other [employer] [id number] 06/19/2024 [id number] / / [id number] Procedures Procedure Name Priority Date/Time Associated Diagnosis Comments BASIC METABOLIC PANEL, S/P Routine 04/03/2022 11:05 AM PRECISION LENS CENTERER AND EDGER Preanesthetic Medical Exam from Last 3 Months or Most Recently Relevant to Health Maintenance Results * (ABNORMAL) Basic Metabolic Panel (04/03/2022 11:05 AM PRECISION LENS CENTERER AND EDGER) Potassium, S 4.2 3.6 - 5.2 mmol/L 04/03/2022 12:06 PM PRECISION LENS CENTERER AND EDGER DTL Sodium, S 142 135 - 145 mmol/L 04/03/2022 12:06 PM PRECISION LENS CENTERER AND EDGER DTL Chloride, S 105 98 - 107 mmol/L 04/03/2022 12:06 PM PRECISION LENS CENTERER AND EDGER DTL Bicarbonate, S 30(H) 22 - 29 mmol/L 04/03/2022 12:06 PM PRECISION LENS CENTERER AND EDGER DTL Anion Gap 7 7 - 15 04/03/2022 12:06 PM PRECISION LENS CENTERER AND EDGER DTL BUN (Blood Urea Nitrogen), S 21 8 - 24 mg/dL 04/03/2022 12:06 PM PRECISION LENS CENTERER AND EDGER DTL Creatinine 1.31 0.74 - 1.35 mg/dL 04/03/2022 12:06 PM PRECISION LENS CENTERER AND EDGER DTL Estimated GFR (eGFR) 59(L) >=60 mL/min/BSA 04/03/2022 12:06 PM PRECISION LENS CENTERER AND EDGER DTL Comment: Estimated GFR calculated using the 2020 CKD_EPI creatinine equation. Calcium, Total, S 9.1 8.8 - 10.2 mg/dL 04/03/2022 12:06 PM PRECISION LENS CENTERER AND EDGER DTL Glucose, S 95 70 - 140 mg/dL 04/03/2022 12:06 PM PRECISION LENS CENTERER AND EDGER DTL Blood (Blood, Venous) 04/03/2022 11:05 AM PRECISION LENS CENTERER AND EDGER 04/03/2022 11:44 AM PRECISION LENS CENTERER AND EDGER Marie Vallecillo APRN, C.N.P. LAB BLOOD ADD-ON [facility] [address] [place] [address], [place] DTL [facility] [address] [place] [address] from Last 3 Months or Most Recently Relevant to Health Maintenance Care Teams Triage Technician Relationship Specialty Start Date End Date Elsewhere, Pcp PCP - General Internal Medicine 04/24/22
--- OUTSIDE RECORDS SUMMARY | 2023-08-26 09:33 | XMS_ITS ---
Author Name Unknown Organization [facility] Address [address] [place] [address] Care Team Providers Care Benefits Consulting Analyst Name Role Phone Unavailable Unavailable Unavailable Surgery Details Not on file Complications Check Surgery Details section. Procedure Estimated Blood Loss Check Surgery Details section. Procedure Findings Check Surgery Details section. Procedure Specimens Taken Check Surgery Details section.
--- NOTE | 2023-10-15 12:47 | W.PM.SLEEP ---
Sleep Study Details Details Interpreting Provider: Tash Date of Sleep Study: 08/26/23 Sleep Study Details: STUDY TYPE:? His home unattended ? BMI:? Not recorded ORDERING PROVIDER:Cindy Bianchi INDICATION:? Concerned about sleep apnea ? SLEEP SUMMARY:? 560 minutes monitored RESPIRATORY SUMMARY:? AHI 31.3 per CMS guidelines. There were 96 central apneas, 5 obstructive apneas and 200 hypopneas with a 3% rule, 168 hypopneas with the 4% rule low oxygen 80, 52% of study oxygen less than 90%, snoring 96.2% PERIODIC LIMB MOVEMENTS OF SLEEP:? Not recorded CARDIAC:? Range 45-93, mean 54.8 IMPRESSION:? Severe mixed sleep apnea with significant hypo oxygenation RECOMMENDATION: Would recommend an in-lab titration. Option would be to order in-lab titration for CPAP BiPAP and if that is not effective order echocardiogram and consider an ASV titration. Alternative would be to have a echocardiogram done prior to any titration study so that if a SB is indicated could proceed directly to that.
== END 2023-08-26 09:32 | disposition home or self-care (01) ==
LOC: SLEEP 09:31
PROVIDERS: PCP Family Medicine; Visit Provider Otolaryngology
DX: G47.33 Obstructive sleep apnea (adult) (pediatric) (principal)
CPT/HCPCS: 95806

== ENCOUNTER 2024-02-25 11:00 | Outpatient (CLI) | payer MEDICARE, BC, SELFPAY ==
--- OUTSIDE RECORDS SUMMARY | 2024-02-27 10:45 | XMS_ITS | Clinical Summary ---
Author Organization [facility] Address [address] [place] [address] Care Team Providers Care Supervisor Bindery Name Role Phone Elsewhere, Pcp Primary Care Provider Unavailabl e Source Comments Patient records contain information from all sites at [facility]. For routine questions regarding patient records, call [phone] during business hours, M-F 8:00 AM - 5:00 PM Central Time. Record requests for emergency care only can be directed to [phone] at any time.[facility] Allergies Active Allergy Reactions Criticality Noted Date Comments Bee Venom Protein (Honey Bee) Other (see comments) 03/29/2022 EXTREME SWELLING Medications simvastatin (ZOCOR) 20 mg tablet Take 20 mg by mouth at bedtime. 11/19/19 20 Active hydroCHLOROth iazide (HYDRODIURIL) 25 mg tablet hydrochlorothiazide 25 mg tablet TAKE 1 TABLET BY MOUTH EVERY DAY 09/07/19 16 Active tadalafiL (CIALIS) 5 mg tablet tadalafil 5 mg tablet TAKE ONE TABLET BY MOUTH EVERY DAY Active ibuprofen (ADVIL,MOTRIN ) 200 mg capsule Take 200 mg by [...] Depressive Disorder 04/10/2022 Polyp Colon Adenomatous 07/08/2014 Overview (03/14/2022): Colonoscopy 06/2014 polyps repeat in 5 years [...] drink = 0.6 oz pur e alcohol) [facility] Utilities Answer Date Recorded In the past 12 months has e [facility], gas, oil, or water [employer] threatened to shut off services in your [...] How often do you attend chur or episcopal services? More than 4 times per year 02/01/2022 Do you belong to any clubs o r organizations such as yazidism groups, unions, fraternal or athletic groups, or [...] and heating? Not hard at all 02/01/2022 [facility] of Occupat ional Health - Occupational Stress [...] your living situation today? [facility] have a [facility] place to live 05/14/2023 Education Answer Date Recorded What is the highest level of school you have completed or the highest degree you have received? Associate degree: occupational, technical, or vocational program 02/01/2022 Sex and Gender Information Value Date Recorded Sex Assigned at Male 07/22/2022 9:07 PM CDT Legal Sex Male 9:46 PM CDT Gender Identity Male 02/01/2022 8:46 AM CDT Sexual Orientation Straight 02/01/2022 8: 46 AM CDT Last Filed Vital Signs Vital Sign Reading Time Taken Comments Blood Pressure 144/83 04/24/2022 1:00 PM ACCOUNTING METHODS ANALYST Pulse 53 04/24/2022 1:15 PM ACCOUNTING METHODS ANALYST Temperature 36.5 ??C (97.7 ??F) 04/24/2022 2:28 PM CS T Respiratory Rate 12 04/24/2022 1:15 PM ACCOUNTING METHODS ANALYST Oxygen Saturation 96% 04/24/2022 1:15 PM ACCOUNTING METHODS ANALYST Inhaled Oxygen Concentration - - Weight 96.1 kg (211 lb 13.8 oz) 04/24/2022 7:48 AM ACCOUNTING METHODS ANALYST Height - - Body Mass Index - - Plan of Treatment Health Maintenance Due Date Last Done Comments CT Colonography 1953 Cologuard 1955 Depression Monitoring (PHQ-9) 1953 Hepatitis C Screening 1953 Lipid (Cholesterol) Screening 1953 Office Visit for Blood Pressure Check / Re-check 1953 Creatinine Level (Kidney Function Test) 04/03/2023 04/03/2022, 03/25/2021, 05/18/2020 Potassium Level 04/03/2023 04/03/2022, 0 07/2020, 05/18/2020 Sodium Level 04/03/2023 04/03/2022, 07/2020, 05/18/2020 Depression Monitoring (PHQ-9 for quality tracking) 04/22/2023 Fall Risk Screen (Annual) 04/22/2023 Zoster Vaccines (2 of 2) 05/07/2023 03/12/2023 COVID-19 Vaccine ( season) 2023 04/11/2023, 11/23/2021, 02/16/2021, Additional history exists Influenza Vaccine (#1) 2024 , 03/22/2022, 03/21/2021, Additional history exists Colonoscopy 11/20/2024 11/21/2019 Colorectal Cancer Surveillance 11/20/2024 Fasting Glucose for Diabetes Screening 04/03/2025 04/03/2022, 03/25/2021, 05/18/2020 DTaP,Tdap,and Td Vaccines (3 - Td or Tdap) 03/21/2031 03/21/2021, 03/08/2011 Pneumococcal vaccine (65+ years) Completed 03/12/2023, 12/11/2019, 09/29/2018 IPV Vaccines Aged Out No longer eligi ble based on patient's age to complete this topic Medical Devices Implanted Type Area Drywall Stripper Device Identifier Shelf Expiration Date Model / Serial / Lot Grft Ost Fill Chp 5cc - [id number] - [id number] Implanted:Qty : 1 on 04/24/2022 by Michael Unger D.O., M.S. at [facility] [employer] 04/19/2026 [id number] / [id number] / Grft Ostsel Pty 1cc - [id number] - [id number] Implanted:Qty : 1 on 04/24/2022 by Michael Unger D.O., M.S. at [facility] [employer] 11/02/2024 [id number] / [id number] / Scrw Lck 2.4x16 - [id number] Implanted:Qty : 3 on 04/24/2022 by Michael Unger D.O., M.S. at [facility] Hardware e.g. pins/screws/ rods Right: Wrist [employer] [id number] / / Scrw Lck 2.4x10 - [id number] Implanted:Qty : 1 on 04/24/2022 by Michael Unger D.O., M.S. at [facility] Hardware e.g. pins/screws/ rods Right: Wrist [employer] [id number] / / Plt Wrst Cup Fsn 10h 18 - [id number] Implanted:Qty : 1 on 04/24/2022 by Michael Unger D.O., M.S. at [facility] Hardware e.g. pins/screws/ rods Right: Wrist [employer] FC10 / / Scrw Lck 2.4x12 - [id number] Implanted:Qty : 3 on 04/24/2022 by Michael Unger D.O., M.S. at [facility] Hardware e.g. pins/screws/ rods Right: Wrist [employer] [id number] / / Scrw Lck 2.4x14 - [id number] Implanted:Qty : 3 on 04/24/2022 by Michael Unger D.O., M.S. at [facility] Hardware e.g. pins/screws/ rods Right: Wrist [employer] [id number] / / Mesh Or Patch Mesh or Patch Right: Abdomen Description:hernia Misc Other Misc Other Eye Description:cataracts [employer] Granules Implanted:Qty : 1 on 04/24/2022 by Michael Unger D.O., M.S. at [facility] Orthopedic Other [employer] [id number] 06/19/2024 [id number] / / [id number] [employer] Ganules Implanted:Qty : 1 on 04/24/2022 by Michael Unger D.O., M.S. at [facility] Orthopedic Other [employer] [id number] 06/19/2024 [id number] / / [id number] Procedures Procedure Name Priority Date/Time Associated Diagnosis Comments BASIC METABOLIC PANEL, S/P Routine 04/03/2022 11:05 AM ACCOUNTING METHODS ANALYST Preanesthetic Medical Exam from Last 3 Months or Most Recently Relevant to Health Maintenance Results * (ABNORMAL) Basic Metabolic Panel (04/03/2022 11:05 AM ACCOUNTING METHODS ANALYST) Potassium, S 4.2 3.6 - 5.2 mmol/L 04/03/2022 12:06 PM ACCOUNTING METHODS ANALYST DTL Sodium, S 142 135 - 145 mmol/L 04/03/2022 12:06 PM ACCOUNTING METHODS ANALYST DTL Chloride, S 105 98 - 107 mmol/L 04/03/2022 12:06 PM ACCOUNTING METHODS ANALYST DTL Bicarbonate, S 30(H) 22 - 29 mmol/L 04/03/2022 12:06 PM ACCOUNTING METHODS ANALYST DTL Anion Gap 7 7 - 15 04/03/2022 12:06 PM ACCOUNTING METHODS ANALYST DTL BUN (Blood Urea Nitrogen), S 21 8 - 24 mg/dL 04/03/2022 12:06 PM ACCOUNTING METHODS ANALYST DTL Creatinine 1.31 0.74 - 1.35 mg/dL 04/03/2022 12:06 PM ACCOUNTING METHODS ANALYST DTL Estimated GFR (eGFR) 59(L) >=60 mL/min/BSA 04/03/2022 12:06 PM ACCOUNTING METHODS ANALYST DTL Comment: Estimated GFR calculated using the 2020 CKD_EPI creatinine equation. Calcium, Total, S 9.1 8.8 - 10.2 mg/dL 04/03/2022 12:06 PM ACCOUNTING METHODS ANALYST DTL Glucose, S 95 70 - 140 mg/dL 04/03/2022 12:06 PM ACCOUNTING METHODS ANALYST DTL Blood (Blood, Venous) 04/03/2022 11:05 AM ACCOUNTING METHODS ANALYST 04/03/2022 11:44 AM ACCOUNTING METHODS ANALYST us Marie Vallecillo APRN, C.N.P. LAB BLOOD ADD-ON F inal Result [facility] [place] [address] [place] [address], [facility] DTL [facility] [address] [place] [address] from Last 3 Months or Most Recently Relevant to Health Maintenance Insurance [facility] [place] [id number] [facility] [[email or web address] MEDICARE Care Teams Supervisor Bindery Relationship Specialty Start Date End Date Elsewhere, Pcp PCP - General Internal Medicine 04/24/22
--- OUTSIDE RECORDS SUMMARY | 2024-02-27 10:45 | XMS_ITS | Clinical Summary ---
Author Organization [facility] Address [place], [place] [address] Care Team Providers Care Punch Press Feeder Name Role Phone Guillaume Eason MD Primary Care Provider [phone] Allergies No known active allergies Medications Medication [...] Date Diagnosed Date Adenomatous colon polyp 07/08/2014 Overview (02/09/2020): Colonoscopy 06/2014 polyps repeat in 5 years Colonoscopy 01/2020 diverticulosis, repeat in 5 years Cervical stenosis of spinal canal 06/17/2014 Tendon laceration 03/12/2011 Lipoma of other skin and subcutaneous tissue Resolved Problems Problem Noted Date Diagnosed Date Resolved Date S/P colonoscopy 01/02/2002 07/08/2014 Immunizations Name Administration Dates Next Due COVID-19 vaccine ([employer] 30mcg/0.3mL) PF, MDV 02/16/2021,07/05/2020,06/14/2020 Influenza, IIV3 (Age [...] Comments Blood Pressure 137/76 03/25/2021 7:51 AM POWER MARKETER Pulse 93 03/25/2021 7:51 AM POWER MARKETER Temperature 36.9 ??C (98.5 ??F) 03/25/2021 7:51 AM CS T Respiratory Rate 16 03/25/2021 10:00 AM POWER MARKETER Oxygen Saturation 91% 03/25/2021 10:00 AM POWER MARKETER Inhaled Oxygen Concentration - - Weight 95.7 kg (211 lb) 03/24/2021 10:00 AM POWER MARKETER Height 182.9 cm (6') 03/24/2021 10:00 AM POWER MARKETER Body Mass Index 28.62 03/24/2021 10:00 AM POWER MARKETER Plan of Treatment Upcoming Encounters Date Type Department Care Team (Late st Contact Info) Description 02/27/2024 3:00 PM POWER MARKETER Orders Only [facility] [address] [place] [address] Health Maintenance Due Date Last Done Comments [...] 03/08/2021 03/08/2011 COVID-19 vaccine series ( season) 2023 11/23/2021, 02/16/2021, 07/05/2020, Additional history exists Influenza for age 65+ 12/22/2023 04/10/2014 , 04/18/2012, 03/17/2007 Colonoscopy through age 75 02/08/202502/08, 02/09/2020, 02/09/2020, Additional history exists Tdap Completed 03/08/2011 Hepatitis C screening for ag e 18-79 Completed 05/31/2014 Procedures Procedure Name Priority Date/Time Associated Diagnosis Comments COLONOSCOPY 02/09/2020 11:06 AM CDT ANTI HCV Routine 05/31/2014 9:01 AM POWER MARKETER Need for hepatitis C screening test LIPID PANEL W REFLEX MEASURED LDL Routine 05/31/2014 9:01 AM POWER MARKETER HTN (hypertension), benign from Last 3 Months [...] reponse to care. [facility] and nursing [facility] for moderate sedation details. Total physician intraservice time was 15 minutes. Sammy Flores MD 02/09/2020 12:02:53 PM This report has been signed electronically. Note Initiated On: 02/09/2020 11:06 AM Procedure Code(s): --- Professional --- 31374, Colonoscopy, flexible; diagnostic, including collection of specimen(s) bybrushing or washing, when performed (separateprocedure) Diagnosis Code(s): --- Professional --- Z86.010, Personal history of colonicpolyps K57.30, Diverticulosis of large intestine without perforation or abscess withoutbleeding CPT copyright 2019 [employer]. All rights reserved. The codes documented in this report are preliminary and upon dry kiln operator helper reviewmay be revised to meet current compliance requirements. Scope In: 11:43:49 AM Scope Withdrawal Time 0 hours 8 minutes 0 seconds Scope Out: 11:55:54 AM Sammy Flores MD PROCEDURE ORD * (ABNORMAL) LIPID PANEL W REFLEX MEASURED LDL (05/31/2014 9:01 AM POWER MARKETER) CHOLESTEROL,TOTAL 174 100 - 199 mg/dL 05/31/2014 9:39 AM [facility] TRIGLYCERIDES 140 <150 mg/dL 05/31/2014 9:39 AM [facility] HDL CHOLESTEROL 36(L) >40 mg/dL 5 9:39 AM [facility] NON-HDL CHOLESTEROL 138 <145 mg/dl 05/31/2014 9:39 AM POWER MARKETER [facility] CHOL/HDL RATIO 4.83(H) <4.50 05/31/2014 9:39 AM POWER MARKETER [facility] LDL CHOLESTEROL 110 <=130 mg/dL 05/31/2014 9:39 AM POWER MARKETER [facility] PATIENT STATUS FASTING 05/31/2014 9:39 AM POWER MARKETER [facility] Blood specimen (specimen) BLOOD SPECIMEN / Unknown Venipuncture / Unknown 05/31/2014 9:01 AM POWER MARKETER 05/31/2014 9:01 AM POWER MARKETER Kimberly Dominique DO CHEMISTRY [facility] [address] [place] [address], * ANTI HCV [98954.2] (05/31/2014 9:01 AM POWER MARKETER) HEPATITIS C ANTIBODY Non-Reacti ve Non-Reacti ve 05/31/2014 2:09 PM POWER MARKETER [facility] Blood specimen (specimen) BLOOD SPECIMEN / Unknown Venipuncture / Unknown 05/31/2014 9:01 AM POWER MARKETER 05/31/2014 9:01 AM POWER MARKETER Narrative [facility] - 05/31/2014 2:09 PM POWER MARKETER Antibodies to HCV not detected; does not exclude the possibility of exposure to HCV. Kimberly Dominique DO SEND OUTS [facility] [address] [place] [address], [place] from Last 3 Months or Most Recently Relevant to Health Maintenance Advance Directives * Full Code (Latest Code Status on File) Date Activated Date Inactivated Comments 03/24/2021 9:36 AM 03/25/2021 6:55 PM Question Answer Comments Code Status Discussion: Unable to Assess Preferences, Provider to review later Care Teams Punch Press Feeder Relationship Specialty Start Date End Date Guillaume Eason MD [address] [place] [address] PCP - General Family Practice 12/15/19
--- OUTSIDE RECORDS SUMMARY | 2024-02-27 10:46 | XMS_ITS | Continuity of Care Document ---
Author Organization [facility], [facility] Address [address] [place] [address] Care Team Providers Care Pile Driver Operator Name Role Phone [facility] Primary Care Provider Assessment No assessment recorded. Plan of Treatment Reminders Order Date Submit Date Provider Last Modified By Organization Details Last Modified Time Details Appointments None recorded. Lab PSA, serum or plasma 2023 024 [email or web address] 4 [facility], [address], [place], [address], 4 17:26:23 Referral None recorded. Procedures None recorded. Surgeries inflatable penile prosthesis, insertion of (SURG) 2023 024 [email or web address] 50 Not available 12:26:08 Imaging None recorded. Medication Orders None recorded. Patient TargetsNo targets recorded. Patient Instructions Encounter Date Encounter Id Patient Instructions Last Modified By Organization Details Last Modified Time 12/16/2023 [id number] Risks discussed included: - 1. Infection - I quoted the patient a rate between 1-2%, and that the risk of infection is higher in diabetics (2-3%), particularly diabetics with poorly controlled blood glucose levels and Hemoglobin A1c levels greater than 11.5. Management of an infection may include oral antibiotics, IV antibiotics, complete removal of infected device, and/or need for repeat surgical procedures. 2. Device malfunction - We discussed that as with any mechanical device, the implant can malfunction over time. 70% at 15 years of devices are still functioning without any mechanical problems. 3. Penile length - We noted that it is important to have appropriate expectations for penile length, which would be approximately 0.5 to 1 inch(es) less than his current maximally stretched penile length. 4. Injury to surrounding structures - Although infrequent, potential complications with surgery would include injury to adjacent organs including the urethra, which may require catheter placement with or without subsequent device placement and rescheduling for a later date. Other injuries including bowel or vascular injuries. 5. Irreversibility - We discussed that this is an irreversible procedure in that the patient will never be able to use PDE5 inhibitors or intracavernosal injections after insertion of a penile implant. 6. Erosion - Although rare, we discussed that any components of the device can erode into a surrounding structure include blood vessels, the bladder, the urethra, or the skin resulting in extrusion of the device. This is particularly true in the setting of infection. We also discussed that the device is not meant to be left inflated all of the time, and that doing so may result in erosion out of the glans. 7. Glans ischemia - Although a rare complication, ischemia of the glans can occur. This is considered a surgical emergency as the device would need to be removed as soon as possible. A delay in removal of the device could results in necrosis of the glans. Not available 12/17/2023 14:48:07 Reason for Referral None Reported. Results Created Date Observation Date Name Description Value Unit Range Abnormal Flag Note LastModifiedBy Organization Detail LastModifiedTime 12/16/19 24 12/16/2023 PSA, serum or plasm a PSA <0.04 ng/mL 0-4.0 NG/mL Not Available [facility] [address], [place], [address], 12/16/2023 17:25:51 Result Notes None recorded. Problems Name Problem SNOMED Code Status Onset Date Resolution Date Notes Provider Name and Address Organization Details Recorded Time Malignant tumor of prostate 097415042 Active 2021 prostatect antonio in March 2021. Preble 3+4, 40% of the gland, positive neurovascu lar invasion left, 6mm positive margin in that location. First PSA negative. Jack Bañuelos MD [address] [place] [address],[address], [place], [address], [facility] 2 10:52:34 Problem Notes None recorded. Procedures Surgical History Date Name Laterality Status Provider Name and Address Organization Details Recorded Time 4 COMPLEX VISIT completed Srini Jaime MD [address] [place] [address],[address], [place], [address], [facility] 12/17/2023 14:46:52 4 Blood Draw/RESOURCE DIRECTOR/PSA RESULTS completed Lashaun Matthews [facility] 12/16/2023 17:25:43 3 RESOURCE DIRECTOR/blood draw completed Jack Bañuelos MD [address] [place] [address],[address], [place], [address], [facility] 01/31/2023 15:08:36 3 arthrodesis completed Srini Jaime MD [address] [place] [address],[address], [place], [address], [facility] 05/21/2022 16:43:43 2 Blood Draw/RESOURCE DIRECTOR/PSA RESULTS completed Kim Gonzalez [facility] 04/05/2022 10:19:04 2 Blood Draw/RESOURCE DIRECTOR/PSA RESULTS completed Chelsea Herrmann [facility] 10/09/2021 10:46:34 2 DT Penile Injection Teaching completed Jack Bañuelos MD [address] [place] [address],[address], [place], [address], [facility] 07/31/2021 16:40:32 2 Blood Draw/RESOURCE DIRECTOR/PSA RESULTS completed Jack Bañuelos MD [address] [place] [address],[address], [address], [facility] 07/03/2021 10:30:31 1 Edward Catheter Removal completed Maryellen Duron [facility] 04/05/2021 09:48:00 1 PROSTATECTOMY, LAPAROSCOPIC, ROBOTIC (SURG) completed Gloria Deirdre [facility] 03/28/2021 13:21:03 1 Prostate Biopsy Procedure completed Srini Jaime MD [address] [place] [address],[address], [place], [address], [facility] 06/20/2020 10:15:50 0 Colonoscopy completed Axel Orozco MD [address] [place] [address],[address], [place], [address], [facility] 12/20/2020 16:01:08 Imaging Results None recorded. Procedure Notes None recorded. Medical Equipment None Reported. Allergies No known drug allergies Medications Name Sig Start Date Stop Date Status Note LastModified by Organization Details LastModified Time compounded medication Inject 10 units intracave rnosal as needed. Adjust dose by 5 units until desired response. 2023 active Not Available Not Available Not Avai lable compounded medication Inject 10 units intracave rnosal [...] elease 150 MG ORALLY TWICE A DAY 12/15 completed Not Available Not Available Not Available azithromyci n 250 mg tablet 08/18 completed Not Available Not Available Not Available hydrocodone 5 mg-acetamin ophen 325 mg tablet TAKE ONE TABLET BY MOUTH EVERY 4 TO 6 HOURS NEEDED FOR PAIN 12/15 completed Not Available Not Available Not Available meloxicam 15 mg tablet TAKE 1 TABLET BY MOUTH EVERY DAY 05/21 completed Not Available Not Available Not Available prednisone 20 mg tablet TAKE 3 TABLETS BY MOUTH DAYS 1 -3, 2 TABLETS DAYS 4-6, THEN 1 TABLET DAYS 7-9 12/15 completed Not Available Not Available Not Available sildenafil 100 mg tablet TAKE ONE TABLET BY MOUTH EVERY DAY active Not Available Not Available No t Available ceftriaxone 1 gram solution for injection Take 1 g by injection route as needed. 08/18 completed Not Available Not Available Not Available amoxicillin 875 mg tablet 875 MG ORALLY TWICE A DAY 12/15 completed Not Available Not Available Not Available simvastatin 20 mg tablet TAKE 1 TABLET BY MOUTH AT BEDTIME active Not Available Not Available No t Available erythromyci n 5 mg/gram (0.5 %) eye ointment APPLY TO INCISION LINES 3 TIMES A DAY FOR 7 DAYS AND THEN AT BEDTIME FOR 7 DAYS. 12/15 completed Not Available Not Available Not Available insulin syringe U-100 with needle 1 [...] HOURS NEEDED FOR PAIN/TAYLOR RE PAIN--SCO RE 7-01/29*P AIN NOT RELIEVED BY TYLENOL 05/21 completed Not Available Not Available Not Available neomycin 3.5 mg/g-polymy rick B 10,000 unit/g-dexa meth 0.1 % eye oint APPLY ON LEFT LOWER LID THREE TIMES DAILY FOR ONE WEEK, TWICE DAILY FOR ONE WEEK AND ONE TIME DAILY FOR ONE WEEK. 12/15 completed Not Available Not Available Not Available tadalafil 5 mg tablet TAKE ONE TABLET BY MOUTH EVERY DAY active Not Available Not Available No t Available tadalafil 20 mg tablet TAKE ONE TABLET BY MOUTH EVERY DAY 2023 active Not Available Not Available Not Avai lable oxycodone 10 mg tablet TAKE 1 TO 2 TABLETS BY MOUTH EVERY 4 HOURS 08/18 completed Not Available Not Available Not Available Vitals Date Recorded Body height Body mass index (BMI) Body weight Provider Name and Address Organization Details Last Updated DateTime 12/16/2023 182.88 cm 28.5 kg/m2 28314.4 g Lashaun Matthews [facility] 12/16/2023 16:31:23 Social History Question Answer Notes LastModified by Organizat ion Details LastModified Time Tobacco Smoking Status Never Smoker Axel Orozco MD [address] [facility],[address], [place], [address] 08/18/2020 16:48:06 What Is Your Level Of Alcohol Consumption? Moderate Information not available 07/03/2021 What Is Your Level Of Caffeine Consumption? Moderate Information not available 07/03/2021 Do You Or Have You Ever Used E-cigarettes Or Vape? Never Used Electronic Cigarettes Information not available 09/09/2020 What Was The Date Of Your Most Recent Tobacco Screening? 12/16/2023 [email or web address] Information not available 12/16/2023 Do You Or Have You Ever Used Smokeless Tobacco? Never Used Smokeless Tobacco Information not available 09/09/2020 Do You Use Any Illicit Or Recreational Drugs? No Information not available 07/03/2021 Has Tobacco Cessation Counseling Been Provided? No [email or web address] Information not available 12/16/2023 Do You Or Have You Ever Used Any Other Forms Of Tobacco Or Nicotine? No Information not available 12/16/2023 Sex: Unknown Functional Status None recorded. Mental Status None recorded. Family History Relationship Description Onset Age of this Age Resolved Age Notes LastModified by Organization Details LastModified Time Maternal Uncle Family history of malignant neoplasm of prostate Not available 2020 16:48:34 Medical History Condition Response Cancer Y High Cholesterol Y Immunizations Vaccine Type Date Status Provider Name and Address Organization Details Recorded Time COVID-19, mRNA, LNP-S, PF, 30 mcg/0.3 mL dose 02/16/2021 completed Anushka hidalgo [facility] 02/08/2023 14:30:24 COVID-19, mRNA, LNP-S, PF, 30 mcg/0.3 mL dose 06/14/2020 completed Anushka hidalgo [facility] 02/08/2023 14:30:24 Tdap 03/08/2011 completed Jack Bañuelos MD [address] [place] [address],[address] [place] [address], [address], [facility] 07/03/2021 10:28:35 Pneumococcal conjugate PCV 13 09/29/2018 completed Jack Bañuelos MD [address] [place] [address],[address], [address], [facility] 07/03/2021 10:28:35 pneumococcal polysaccharide PPV23 12/11/2019 completed Jack Bañuelos MD [address] [facility],[address], [place], [address], [facility] 07/03/2021 10:28:35 COVID-19, mRNA, LNP-S, PF, 30 mcg/0.3 mL dose 07/05/2020 [facility] 14:30:24 Influenza, injectable,quadrival ent, preservative free, pediatric 05/04/2013 [facility] 14:30:23 Influenza, MDCK, quadrivalent, PF 02/25/2018 [facility] 14:30:23 Influenza, high-dose, quadrivalent, PF 03/21/2021 [facility] 14:30:23 Tdap 03/21/2021 [facility] 14:30:24 Influenza, high-dose, trivalent, PF 02/06/2019 [facility] 14:30:24 Influenza, split virus, trivalent, preservative 04/18/2012 [facility] 14:30:24 Influenza, split virus, trivalent, preservative 04/21/2011 [facility] 14:30:24 Influenza, split virus, trivalent, PF 04/24/2016 [facility] 14:30:24 Influenza, split virus, trivalent, PF 04/12/2015 [facility] 14:30:24 Influenza, split virus, quadrivalent, PF 01/25/2017 completed Anushka hidalgo [facility] 02/08/2023 14:30:24 Influenza, split virus, quadrivalent, PF 04/10/2014 completed Anushka Blaine gwen [facility] 02/08/2023 14:30:24 Influenza, high-dose, quadrivalent, PF 03/22/2022 completed Anushka Blaine gwen [facility] 02/21/2023 12:10:30 Influenza, adjuvanted, quadrivalent, PF 01/18/2023 completed Anushka Blaine gwen [facility] 02/21/2023 12:11:00 COVID-19, mRNA, LNP-S, PF, 30 mcg/0.3 mL dose, eli-sucrose 11/23/2021 completed Anushka Blaine hidalgo [facility] 02/21/2023 12:10:30 Past Encounters Encounter ID Performer Location Encounter Start Date Encounter Closed Date Diagnosis/Indication Diagnosis SNOMED-CT Code Diagnosis ICD10 Code [id number] Srini Jaime MD [facility] [address] [place] [address] 12/16/2023 15:36:59 12/18/2023 11:05:57 Malignant tumor of prostate 439840745 C61 Secondary erectile dysfunction 336819969 N52.39 Health Concerns Section Related Observation LastModified by Organization Detai ls LastModified Time None Recorded Concern Status LastModified by Organization Details LastModified Time None Recorded Payers Encounter Date Sequence Insurance Name Policy Number Policy Vidal Covered Member ID Vidal Member ID Guarantor Name 12/16/2023 1 [place] - MEDICARE COST [id number] Lalito Jaeger [id number] Lalito Jaeger Notes Date Note Type Note Provider Name and Address Organization Details Recorded Time 12/16/2023 text/html HPI Notes: One y ear out from a prostatectomy for Pre[place] 7 cancer. His continence is good with [...] dealing with priapism, thankfully responsive to psuedofed. 12/16/2023: Here for follow up Erectile dysfunction following radical prostatectomy. No longer responding to [employer], would like to consider penile prosthesis. PSA undetectable. Srini Jaime MD [address] [place] [address],[facility] [address], [place], [address], [facility] 12/17/2023 14:52:12
--- OUTSIDE RECORDS SUMMARY | 2024-02-27 10:46 | XMS_ITS | Data Portability ---
Author Organization [facility], [facility] Address [address] [place] [address] Care Team Providers Care Block Chopper Hand Name Role Phone [facility] Primary Care Provider Assessment No assessment recorded. Plan of Treatment Reminders Order Date Submit Date Provider Last Modified By Organization Details Last Modified Time Details Appointments None recorded. Lab PSA, serum or plasma 2021 022 [email or web address] Not available 10:37:02 PSA, serum or plasma 2021 022 [email or web address] [facility], [address], [place], [address], 2 10:32:40 PSA, serum or plasma 2022 023 [email or web address] [facility], [address], [place], [address], 3 15:21:27 PSA, serum or plasma 2023 024 [email or web address] 4 [facility], [address], [place], [address], 17:26:23 Referral None recorded. Procedures None recorded. Surgeries inflatable penile prosthesis, insertion of (SURG) 2021 022 [email or web address] 11 Not available 10:35:26 inflatable penile prosthesis, insertion of (SURG) 2023 024 [email or web address] 50 Not available 12:26:08 Imaging None recorded. Medication Orders tadalafil 20 mg tablet 2021 022 [facility], [place], [place], [address] [place], [address], 2 10:45:08 compounded medication 2022 023 [email or web address] [facility], [address], [place], [place], [id number], 3 17:41:11 compounded medication 2022 023 ABDULLAHI [facility], [address], [place], [place], [id number], 3 17:41:11 tadalafil 20 mg tablet 2022 023 [facility], [place], [place], [address] [place], [address], 3 15:26:01 Patient TargetsNo targets recorded. Patient Instructions Encounter Date Encounter Id Patient Instructions Last Modified By Organization Details Last Modified Time 12/16/2023 [id number] Risks discussed included: - 1. Infection - [...] Abnormal Flag Note LastModifiedBy Organization Detail LastModifiedTime 10/10/19 22 10/09/2021 PSA, serum or plasm a PSA, Total <0.04 ng/ml Not Available [facility] [address], [place], [address], 10/09/2021 10:36:49 04/05/20 22 04/05/2022 PSA, serum or plasm a PSA <0.04 0-4.0 Not Available [facility] [address], [place], [address], 04/05/2022 10:19:10 02/01/20 23 01/31/2023 PSA, serum or plasm a PSA <0.04 ng/ml 0-4.0 Not Available [facility] [address], [place], [address], 01/31/2023 15:08:39 12/16/19 24 12/16/2023 PSA, serum or plasm a PSA <0.04 ng/mL 0-4.0 NG/mL Not Available [facility] [address], [place], [address], 12/16/2023 17:25:51 Result Notes None recorded. Problems Name Problem SNOMED Code Status Onset Date Resolution Date Notes Provider Name and Address Organization Details Recorded Time Malignant tumor of prostate 241033610 Active 2021 prostatect antonio in March 2021. [place] 3+4, 40% of the gland, positive neurovascu lar invasion left, 6mm positive margin in that location. First PSA negative. Jack Bañuelos MD [address] [place] [address],[address], [address], [facility] 2 10:52:34 Problem Notes None recorded. Procedures Surgical History Date Name Laterality Status Provider Name and Address Organization Details Recorded Time 4 COMPLEX VISIT completed Srini Jaime MD [address] [place] [address],[address], [address], [facility] 12/17/2023 14:46:52 4 Blood Draw/SALES AND CATERING COORDINATOR/PSA RESULTS completed Lashaun Matthews [facility] 12/16/2023 17:25:43 3 SALES AND CATERING COORDINATOR/blood draw completed Jack Bañuelos MD [address] [place] [address],[address], [address], [facility] 01/31/2023 15:08:36 3 arthrodesis completed Srini Jaime MD [address] [place] [address],[address], [address], [facility] 05/21/2022 16:43:43 2 Blood Draw/SALES AND CATERING COORDINATOR/PSA RESULTS completed Kim Gonzalez [facility] 04/05/2022 10:19:04 2 Blood Draw/SALES AND CATERING COORDINATOR/PSA RESULTS completed Chelsea Herrmann [facility] 10/09/2021 10:46:34 2 DT Penile Injection Teaching completed Jack Bañuelos MD [address] [place] [address],[address], [place], [address], [facility] 07/31/2021 16:40:32 2 Blood Draw/SALES AND CATERING COORDINATOR/PSA RESULTS completed Jack Bañuelos MD [address] [place] [address],[address], [place], [address], [facility] 07/03/2021 10:30:31 1 Edward Catheter Removal completed Maryellen Duron [facility] 04/05/2021 09:48:00 1 PROSTATECTOMY, LAPAROSCOPIC, ROBOTIC (SURG) completed Gloria Gilmore [facility] 03/28/2021 13:21:03 1 Prostate Biopsy Procedure completed Srini Jaime MD [address] [place] [address],[address], [place], [address], [facility] 06/20/2020 10:15:50 0 Colonoscopy completed Axel Orozco MD [address] [place] [address],[address], [place], [address], [facility] 12/20/2020 16:01:08 Imaging Results None recorded. Procedure [...] Updated DateTime 04/05/2022 182.88 cm 28.5 kg/m2 24745.4 g Kim Gonzalez [facility] 04/05/2022 10:18:24 Date Recorded Body height Body mass index (BMI) Body weight Provider Name and Address Organization Details Last Updated DateTime 05/21/2022 182.88 cm 28.5 kg/m2 81064.4 g Lashaun Woodall [facility] 05/21/2022 16:35:26 Date Recorded Body height Body mass index (BMI) Body weight Provider Name and Address Organization Details Last Updated DateTime 01/31/2023 182.88 cm 28.5 kg/m2 84760.4 g Jack Bañuelos MD [address] [place] [address], [address] 01/31/2023 15:07:54 Date Recorded Body height Body mass index (BMI) Body weight Provider Name and Address Organization Details Last Updated DateTime 12/16/2023 182.88 cm 28.5 kg/m2 26353.4 g Lashaun Matthews [facility] 12/16/2023 16:31:23 Date Recorded Body height Body mass index (BMI) Body weight Provider Name and Address Organization Details Last Updated DateTime 10/09/2021 182.88 cm 28.5 kg/m2 25715.4 g Jack Bañuelos MD [address] [place] [address], [address] [place] [address] 10/09/2021 10:35:45 Social History Question Answer Notes LastModified by Organizat ion Details LastModified Time Tobacco Smoking Status Never Smoker Axel Orozco MD [address] [place] [address],[address], [address], [facility] 08/18/2020 16:48:06 What Is Your Level Of Alcohol Consumption? Moderate Information not available 07/03/2021 What Is Your Level Of Caffeine Consumption? Moderate Information not available 07/03/2021 Do You Or Have You Ever Used E-cigarettes Or Vape? Never Used Electronic Cigarettes Information not available 09/09/2020 What Was The Date Of Your Most Recent Tobacco Screening? 12/16/2023 [email or web address] Information not available 12/16/2023 Do You Or Have You Ever Used Smokeless Tobacco? Never Used Smokeless Tobacco Information not available 09/09/2020 Do You Use Any Illicit Or Recreational Drugs? No Information not available 07/03/2021 Has Tobacco Cessation Counseling Been Provided? No [email or web address] Information not available 12/16/2023 Do You Or Have You Ever Used Any Other Forms Of Tobacco Or Nicotine? No [email or web address] Information not available 12/16/2023 Sex: Unknown Functional [...] mcg/0.3 mL dose 02/16/2021 completed Anushka hidalgo [facility] 02/08/2023 14:30:24 COVID-19, mRNA, LNP-S, PF, 30 mcg/0.3 mL dose 06/14/2020 completed Anushka hidalgo [facility] 02/08/2023 14:30:24 Tdap 03/08/2011 completed Jack Bañuelos MD [address] [place] [address],[address], [address], [facility] 07/03/2021 10:28:35 Pneumococcal conjugate PCV 13 09/29/2018 completed Jack Bañuelos MD [address] [place] [address],[address], [address], [facility] 07/03/2021 10:28:35 pneumococcal polysaccharide PPV23 12/11/2019 completed Jack Bañuelos MD [address] [facility],[address], [place], [address], [facility] 07/03/2021 10:28:35 COVID-19, mRNA, LNP-S, PF, 30 mcg/0.3 mL dose 07/05/2020 completed Anushka hidalgo, [facility] 02/08/2023 14:30:24 Influenza, injectable,quadrival ent, preservative free, pediatric 05/04/2013 completed Anushka Valladares null, [facility] 02/08/2023 14:30:23 Influenza, MDCK, quadrivalent, PF 02/25/2018 completed Anushka hidalgo, [facility] 02/08/2023 14:30:23 Influenza, high-dose, quadrivalent, PF 03/21/2021 completed Anushka hidalgo, [facility] 02/08/2023 14:30:23 Tdap 03/21/2021 completed Anushka hidalgo, [facility] 02/08/2023 14:30:24 Influenza, high-dose, trivalent, PF 02/06/2019 [facility] 14:30:24 Influenza, split virus, trivalent, preservative 04/18/2012 completed Anushka hidalgo, [facility] 02/08/2023 14:30:24 Influenza, split virus, trivalent, preservative 04/21/2011 completed Anushka Valladares null, [facility] 02/08/2023 14:30:24 Influenza, split virus, trivalent, PF 04/24/2016 [facility] 14:30:24 Influenza, split virus, trivalent, PF 04/12/2015 [facility] 14:30:24 Influenza, split virus, quadrivalent, PF 01/25/2017 [facility] 14:30:24 Influenza, split virus, quadrivalent, PF 04/10/2014 completed Anushka Valladares null, [facility] 02/08/2023 14:30:24 Influenza, high-dose, quadrivalent, PF 03/22/2022 completed Anushka Valladares null, [facility] 02/21/2023 12:10:30 Influenza, adjuvanted, quadrivalent, PF 01/18/2023 completed Anushka Valladares null, [facility] 02/21/2023 12:11:00 COVID-19, mRNA, LNP-S, PF, 30 mcg/0.3 mL dose, eil-sucrose 11/23/2021 completed Anushka hidalgo, [facility] 02/21/2023 12:10:30 Past Encounters Encounter ID Performer Location Encounter Start Date Encounter Closed Date Diagnosis/Indication Diagnosis SNOMED-CT Code Diagnosis ICD10 Code [id number] MD LAURO [facility] [address] [place] [address] 06/20/2020 09:37:37 06/22/2020 08:25:23 Prostate specific antigen above reference range 978071159 R97.20 [id number] Lamonte [facility] [address] [place] [address] 06/20/2020 09:37:37 06/22/2020 03:53:39 [id number] MD Savanna Granados [address] [place] [address] 08/18/2020 16:31:33 08/19/2020 14:53:15 Malignant tumor of prostate 857297743 C61 [id number] MD LAURO [facility] [address] [place] [address] 09/09/2020 12:24:52 09/12/2020 10:25:50 Malignant tumor of prostate 616566356 C61 [id number] MD Savanna Granados [address] [place] [address] 12/20/2020 15:43:29 12/21/2020 14:32:48 Malignant tumor of prostate 578285575 C61 [id number] MD LAURO [facility] [address] [place] [address] 02/27/2021 15:52:46 03/01/2021 10:17:08 Malignant tumor of prostate 246074366 C61 [id number] MD LAURO [facility] [address] [place] [address] 04/05/2021 09:22:24 04/11/2021 03:53:09 Acute urinary tract infection 757155414 N39.0 [id number] MD LAURO [facility] [address] [place] [address] 05/08/2021 11:46:48 05/09/2021 12:44:30 Carcinoma of prostate 215674204 C61 [id number] MD LAURO [facility] [address] [place] [address] 07/03/2021 10:19:15 07/05/2021 10:19:24 Malignant tumor of prostate 956544991 C61 Secondary erectile dysfunction 180620215 N52.39 [id number] MD LAURO [facility] [address] [place] [address] 07/31/2021 16:17:25 08/03/2021 14:17:46 Secondary erectile dysfunction 187964993 N52.39 [id number] MD LAURO [facility] [address] [place] [address] 10/09/2021 10:20:21 10/11/2021 14:42:00 Malignant tumor of prostate 202238607 C61 Secondary erectile dysfunction 751426539 N52.39 [id number] Lorie Dumont [facility] [address] [place] [address] 04/05/2022 10:04:52 04/09/2022 16:41:28 Malignant tumor of prostate 626435406 C61 Secondary erectile dysfunction 932071657 N52.39 [id number] MD LAURO [facility] [address] [place] [address] 05/21/2022 16:23:46 05/25/2022 09:14:53 Malignant tumor of prostate 314581492 C61 Secondary erectile dysfunction 444529883 N52.39 [id number] Jack Bañuelos MD [facility] [address] [place] [address] 01/31/2023 14:50:24 02/13/2023 13:25:12 Malignant tumor of prostate 309021962 C61 Secondary erectile dysfunction 160100426 N52.39 [id number] Srini Jaime MD [facility] [address] [place] [address] 12/16/2023 15:36:59 12/18/2023 11:05:57 Malignant tumor of prostate 905986314 C61 Secondary erectile dysfunction 691983795 N52.39 Health Concerns Section Related Observation LastModified by Organization Detai ls LastModified Time None Recorded Concern Status LastModified by Organization Details LastModified Time None Recorded Advance Directives Directive None Recorded Payers Encounter Date Sequence Insurance Name Policy Number Policy Vidal Covered Member ID Vidal Member ID Guarantor Name 10/09/2021 1 [place] [id number] Lalito J Mil [id number] Lalito J Mil 04/05/2022 1 [place] [id number] Lalito J Mil [id number] Lalito J Mil 05/21/2022 1 [place] [id number] Lalito J Mil [id number] Lalito J Mil 01/31/2023 1 [place] [id number] Lalito J Mil [id number] Lalito J Mil 12/16/2023 1 [place] [id number] Lalito J Mil [id number] Lalito J Mil Notes Date Note Type Note Provider Name and Address Organization Details Recorded Time 10/09/2021 text/html HPI Notes: He is having a tough time with Trimix. He only needs about 0.1. Jack Bañuelos MD [address] [place] [address],[address], [place], [address], [facility] 10/09/2021 10:52:57 04/05/2022 text/html HPI Notes: One y ear out from a prostatectomy for [place] 7 cancer. His continence is good with no use for pads. This took about two months to recover after surgery. Sildenafil has not helped with ED. Cialis works better. He tried Trimix but he was very sensitive to it. He's also needed ice and pseudafed. Since then, he's had a downward curve. Jack Bañuelos MD [address] [place] [address],[address], [address], [facility] 04/05/2022 10:47:19 05/21/2022 text/html HPI Notes: One y ear out from a prostatectomy for [place] 7 cancer. His continence is good with [...] with priapism, thankfully responsive to psuedofed. Srini Jaime MD [address] [place] [address],[address] [place] [address], [address], [facility] 05/21/2022 17:32:27 01/31/2023 text/html HPI Notes: [...] mild form of leukemia. Jack Bañuelos MD [address] [place] [address],[address], [place], [address], [facility] 01/31/2023 15:26:34 12/16/2023 text/html HPI Notes: One y ear out from a prostatectomy for [place] 7 cancer. His continence is good with [...] penile prosthesis. PSA undetectable. Srini Jaime MD [address] [facility],[address], [place], [address], [facility] 12/17/2023 14:52:12
--- OUTSIDE RECORDS SUMMARY | 2024-02-27 10:46 | XMS_ITS ---
Author Organization [facility] Address [address] [place] [address] Care Team Providers Care Horticultural Technical Officer Name Role Phone Unavailable Unavailable Unavailable Surgery Details Not on file Complications Check Surgery Details section. Procedure Estimated Blood Loss Check Surgery Details section. Procedure Findings Check Surgery Details section. Procedure Specimens Taken Check Surgery Details section.
--- OUTSIDE RECORDS SUMMARY | 2024-02-27 10:46 | XMS_ITS | Referral Summary ---
Author Organization [facility] Address [address] [place] [address] Care Team Providers Care Patient Escort Name Role Phone Elsewhere, Pcp Primary Care Provider Unavailabl e Source Comments Patient records contain information from all sites at [facility]. For routine questions regarding patient records, call [phone] during business hours, M-F 8:00 AM - 5:00 PM Central Time. Record requests for emergency care only can be directed to [phone] at any time.[facility] Allergies Active Allergy Reactions Criticality Noted Date [...] drink = 0.6 oz pur e alcohol) [facility] Utilities Answer Date Recorded In the past 12 months has e [employer], gas, oil, or water [employer] threatened to shut off services in your [...] often do you attend chur ch or bahai services? More than 4 times per year 02/01/2022 Do you belong to any clubs o r organizations such as jehovah's witness groups, unions, fraternal or athletic groups, or [...] and heating? Not hard at all 02/01/2022 [facility] - Occupational [...] your living situation today? I have a [facility] place to live 05/14/2023 Education Answer [...] Comments Blood Pressure 144/83 04/24/2022 1:00 PM REHABILITATION COUNSELOR Pulse 53 04/24/2022 1:15 PM REHABILITATION COUNSELOR Temperature 36.5 ??C (97.7 ??F) 04/24/2022 2:28 PM CS T Respiratory Rate 12 04/24/2022 1:15 PM REHABILITATION COUNSELOR Oxygen Saturation 96% 04/24/2022 1:15 PM REHABILITATION COUNSELOR Inhaled Oxygen Concentration - - Weight 96.1 kg (211 lb 13.8 oz) 04/24/2022 7:48 AM REHABILITATION COUNSELOR Height - - Body Mass Index - - Plan of Treatment Not on file Medical Devices Implanted Type Area Deburr Operator Device Identifier Shelf Expiration Date Model / Serial / Lot Grft Ost Fill Chp 5cc - [id number] - [id number] Implanted:Qty : 1 on 04/24/2022 by Michael Unger D.O., M.S. at [facility] [employer] 04/19/2026 [id number] / [id number] / Grft Ostsel Pty 1cc - [id number] - [id number] Implanted:Qty : 1 on 04/24/2022 by Michael Unger D.O., M.S. at [facility]/[employer] 11/02/2024 [id number] / [id number] / Scrw Lck 2.4x16 - [id number] Implanted:Qty : 3 on 04/24/2022 by Michael Unger D.O., M.S. at [facility] Hardware e.g. pins/screws/ rods Right: Wrist [employer] [id number] / / Scrw Lck 2.4x10 - [id number] Implanted:Qty : 1 on 04/24/2022 by Michael Unger D.O., M.S. at [facility] Hardware e.g. pins/screws/ rods Right: Wrist [employer] [id number] / / Plt Wrst Cup Fsn 10h 18 - [id number] Implanted:Qty : 1 on 04/24/2022 by Michael Unger D.O., M.S. at [facility] Hardware e.g. pins/screws/ rods Right: Wrist [employer] [id number] / / Scrw Lck 2.4x12 - [id number] Implanted:Qty : 3 on 04/24/2022 by Michael Unger D.O., M.S. at [facility] Hardware e.g. pins/screws/ rods Right: Wrist [employer] [id number] / / Scrw Lck 2.4x14 - [id number] Implanted:Qty : 3 on 04/24/2022 by Michael Unger D.O., M.S. at [facility] Hardware e.g. pins/screws/ rods Right: Wrist [employer] [id number] / / Mesh Or Patch Mesh or Patch Right: Abdomen Description:hernia Misc Other Misc Other Eye Description:cataracts [employer] Granules Implanted:Qty : 1 on 04/24/2022 by Michael Unger D.O., M.S. at [facility] Orthopedic Other [employer] [id number] 06/19/2024 [id number] / / [id number] [employer] Ganules Implanted:Qty : 1 on 04/24/2022 by Michael Unger D.O., M.S. at [facility] Orthopedic Other [employer] [id number] 06/19/2024 [id number] / / [id number] Procedures Procedure Name Priority Date/Time Associated Diagnosis Comments BASIC METABOLIC PANEL, S/P Routine 04/03/2022 11:05 AM REHABILITATION COUNSELOR Preanesthetic Medical Exam from Last 3 Months or Most Recently Relevant to Health Maintenance Results * (ABNORMAL) Basic Metabolic Panel (04/03/2022 11:05 AM REHABILITATION COUNSELOR) Potassium, S 4.2 3.6 - 5.2 mmol/L 04/03/2022 12:06 PM REHABILITATION COUNSELOR DTL Sodium, S 142 135 - 145 mmol/L 04/03/2022 12:06 PM REHABILITATION COUNSELOR DTL Chloride, S 105 98 - 107 mmol/L 04/03/2022 12:06 PM REHABILITATION COUNSELOR DTL Bicarbonate, S 30(H) 22 - 29 mmol/L 04/03/2022 12:06 PM REHABILITATION COUNSELOR DTL Anion Gap 7 7 - 15 04/03/2022 12:06 PM REHABILITATION COUNSELOR DTL BUN (Blood Urea Nitrogen), S 21 8 - 24 mg/dL 04/03/2022 12:06 PM REHABILITATION COUNSELOR DTL Creatinine 1.31 0.74 - 1.35 mg/dL 04/03/2022 12:06 PM REHABILITATION COUNSELOR DTL Estimated GFR (eGFR) 59(L) >=60 mL/min/BSA 04/03/2022 12:06 PM REHABILITATION COUNSELOR DTL Comment: Estimated GFR calculated using the 2020 CKD_EPI creatinine equation. Calcium, Total, S 9.1 8.8 - 10.2 mg/dL 04/03/2022 12:06 PM REHABILITATION COUNSELOR DTL Glucose, S 95 70 - 140 mg/dL 04/03/2022 12:06 PM REHABILITATION COUNSELOR DTL Blood (Blood, Venous) 04/03/2022 11:05 AM REHABILITATION COUNSELOR 04/03/2022 11:44 AM REHABILITATION COUNSELOR us Marie Vallecillo APRN, C.N.P. LAB BLOOD ADD-ON F inal Result [facility] [address] [place] [address], [place] DTL [facility] [address] [place] [address] from Last 3 Months or Most Recently Relevant to Health Maintenance Insurance [id number] MEDICARE Care Teams Patient Escort Relationship Specialty Start Date End Date Elsewhere, Pcp PCP - General Internal Medicine 04/24/22
--- OUTSIDE RECORDS SUMMARY | 2024-02-27 10:46 | XMS_ITS | Encounter Summary ---
Author Organization [facility] Address [address] [place] [address] Care Team Providers Care Electrician Name Role Phone Elsewhere, Pcp Primary Care Provider Unavailabl e Encounter Details Date Type Department Care Team (Late st Contact Info) Description 05/14/2023 Orders Only Department of Orthopedic Surgery in [place], [place] [address] [place] [address] [facility], Provider, Pain Ankle Bilateral Social History Tobacco Use Types Packs/Day Years Used Date Smoking Tobacco: Never Smokeless Tobacco: Never Alcohol Use Standard Drinks/Week Comments Yes 5 (1 standard drink = 0.6 oz pur e alcohol) [facility] Utilities Answer Date Recorded In the past 12 months has e electric, gas, oil, or water [employer] threatened to shut off services in your [...] and heating? Not hard at all 02/01/2022 [facility] - Occupational [...] your living situation today? I have a [facility] place to live 05/14/2023 Education Answer [...] Bilateral documented in this encounter Care Teams Electrician Relationship Specialty Start Date End Date Elsewhere, Pcp PCP - General Internal Medicine 04/24/22 documented as of this encounter
== END 2024-02-25 11:01 | disposition home or self-care (01) ==
LOC: NFLDREF 02-27 10:44
PROVIDERS: PCP Family Medicine; Referring Provider Family Medicine; Visit Provider Emergency Medicine
DX: Z00.00 Encounter for general adult medical examination without abnormal findings (principal); I10 Essential (primary) hypertension; E78.00 Pure hypercholesterolemia, unspecified; R06.09 Other forms of dyspnea; R68.82 Decreased libido; Z12.5 Encounter for screening for malignant neoplasm of prostate; Z13.6 Encounter for screening for cardiovascular disorders
CPT/HCPCS: 80053; 80061

== ENCOUNTER 2024-02-27 14:46 | Outpatient (CLI) | payer MEDICARE, BC, SELFPAY ==
--- OUTSIDE RECORDS SUMMARY | 2024-02-27 14:54 | XMS_ITS | Referral Summary ---
Author Organization [facility] Address [address] [place] [address] Care Team Providers Care Crna Name Role Phone Elsewhere, Pcp Primary Care Provider Unavailabl e Source Comments Patient records contain information from all sites at [facility]. For routine questions regarding patient records, call [phone] during business hours, M-F 8:00 AM - 5:00 PM Central Time. Record requests for emergency care only can be directed to [phone] at any time.[facility] Allergies Active Allergy Reactions Criticality Noted Date [...] 0.6 oz pur e alcohol) [facility] Utilities Answer Date Recorded In the past 12 months has e Contact [employer]!, gas, oil, or water [employer] threatened to shut off services in your [...] often do you attend chur ch or taoism services? More than 4 times per year 02/01/2022 Do you belong to any clubs o r organizations such as holiness groups, unions, fraternal or athletic groups, or [...] and heating? Not hard at all 02/01/2022 [facility] of Occupat ional Health - Occupational Stress [...] your living situation today? I have a [facility] place to live 05/14/2023 Education Answer [...] Comments Blood Pressure 144/83 04/24/2022 1:00 PM CONSTRUCTION PROJECT MANAGER Pulse 53 04/24/2022 1:15 PM CONSTRUCTION PROJECT MANAGER Temperature 36.5 ??C (97.7 ??F) 04/24/2022 2:28 PM CS T Respiratory Rate 12 04/24/2022 1:15 PM CONSTRUCTION PROJECT MANAGER Oxygen Saturation 96% 04/24/2022 1:15 PM CONSTRUCTION PROJECT MANAGER Inhaled Oxygen Concentration - - Weight 96.1 kg (211 lb 13.8 oz) 04/24/2022 7:48 AM CONSTRUCTION PROJECT MANAGER Height - - Body Mass Index - - Plan of Treatment Not on file Medical Devices Implanted Type Area Signal Intelligence/Electronic Warfare Device Identifier Shelf Expiration Date Model / Serial / Lot Grft Ost Fill Chp 5cc - [id number] - [id number] Implanted:Qty : 1 on 04/24/2022 by Michael Unger D.O., M.S. at [facility] [employer] 04/19/2026 [id number] / [id number] / Grft Ostsel Pty 1cc - [id number] - [id number] Implanted:Qty : 1 on 04/24/2022 by Michael Unger D.O., M.S. at [facility] 11/02/2024 [id number] / [id number] / Scrw Lck 2.4x16 - [id number] Implanted:Qty : 3 on 04/24/2022 by Michael Unger D.O., M.S. at [facility] Hardware e.g. pins/screws/ rods Right: Wrist [employer] [id number] / / Scrw Lck 2.4x10 - [id number] Implanted:Qty : 1 on 04/24/2022 by Michael Unger D.O., M.S. at [facility] Hardware e.g. pins/screws/ rods Right: Wrist [employer] [id number] / / Plt Wrst Cup Fsn 10h 18 - [id number] Implanted:Qty : 1 on 04/24/2022 by Michael Unger D.O., M.S. at [facility] Hardware e.g. pins/screws/ rods Right: Wrist [employer] FC10 / / Scrw Lck 2.4x12 - [id number] Implanted:Qty : 3 on 04/24/2022 by Michael Unger D.O., M.S. at [facility] Hardware e.g. pins/screws/ rods Right: Wrist [employer] [id number] / / Scrw Lck 2.4x14 - [id number] Implanted:Qty : 3 on 04/24/2022 by Michael Unger D.O., M.S. at [facility] Hardware e.g. pins/screws/ rods Right: Wrist [employer] [id number] / / Mesh Or Patch Mesh or Patch Right: Abdomen Description:hernia Misc Other Misc Other Eye Description:cataracts [employer] Granules Implanted:Qty : 1 on 04/24/2022 by Michael Unger D.O., M.S. at [facility] Orthopedic Other [employer] [id number] 06/19/2024 63059 / / [id number] [employer] Ganules Implanted:Qty : 1 on 04/24/2022 by Michael Unger D.O., M.S. at [facility] Orthopedic Other [employer] [id number] 06/19/2024 [id number] / / [id number] Procedures Procedure Name Priority Date/Time Associated Diagnosis Comments BASIC METABOLIC PANEL, S/P Routine 04/03/2022 11:05 AM CONSTRUCTION PROJECT MANAGER Preanesthetic Medical Exam from Last 3 Months or Most Recently Relevant to Health Maintenance Results * (ABNORMAL) Basic Metabolic Panel (04/03/2022 11:05 AM CONSTRUCTION PROJECT MANAGER) Potassium, S 4.2 3.6 - 5.2 mmol/L 04/03/2022 12:06 PM CONSTRUCTION PROJECT MANAGER DTL Sodium, S 142 135 - 145 mmol/L 04/03/2022 12:06 PM CONSTRUCTION PROJECT MANAGER DTL Chloride, S 105 98 - 107 mmol/L 04/03/2022 12:06 PM CONSTRUCTION PROJECT MANAGER DTL Bicarbonate, S 30(H) 22 - 29 mmol/L 04/03/2022 12:06 PM CONSTRUCTION PROJECT MANAGER DTL Anion Gap 7 7 - 15 04/03/2022 12:06 PM CONSTRUCTION PROJECT MANAGER DTL BUN (Blood Urea Nitrogen), S 21 8 - 24 mg/dL 04/03/2022 12:06 PM CONSTRUCTION PROJECT MANAGER DTL Creatinine 1.31 0.74 - 1.35 mg/dL 04/03/2022 12:06 PM CONSTRUCTION PROJECT MANAGER DTL Estimated GFR (eGFR) 59(L) >=60 mL/min/BSA 04/03/2022 12:06 PM CONSTRUCTION PROJECT MANAGER DTL Comment: Estimated GFR calculated using the 2020 CKD_EPI creatinine equation. Calcium, Total, S 9.1 8.8 - 10.2 mg/dL 04/03/2022 12:06 PM CONSTRUCTION PROJECT MANAGER DTL Glucose, S 95 70 - 140 mg/dL 04/03/2022 12:06 PM CONSTRUCTION PROJECT MANAGER DTL Blood (Blood, Venous) 04/03/2022 11:05 AM CONSTRUCTION PROJECT MANAGER 04/03/2022 11:44 AM CONSTRUCTION PROJECT MANAGER us Marie Vallecillo APRN, C.N.P. LAB BLOOD ADD-ON F inal Result [facility] [address] [place] [address], [place] DTL [facility] [address] [place] [address] from Last 3 Months or Most Recently Relevant to Health Maintenance Insurance [facility] [place] [address] MEDICARE Care Teams Crna Relationship Specialty Start Date End Date Elsewhere, Pcp PCP - General Internal Medicine 04/24/22
--- OUTSIDE RECORDS SUMMARY | 2024-02-27 14:54 | XMS_ITS ---
Author Organization [facility] Address [address] [place] [address] Care Team Providers Care Chemical Processing Supervisor Name Role Phone Unavailable Unavailable Unavailable Surgery Details Not on file Complications Check Surgery Details section. Procedure Estimated Blood Loss Check Surgery Details section. Procedure Findings Check Surgery Details section. Procedure Specimens Taken Check Surgery Details section.
--- OUTSIDE RECORDS SUMMARY | 2024-02-27 14:54 | XMS_ITS | Clinical Summary ---
Author Organization [facility] Address [address] [place] [address] Care Team Providers Care Military Pay Clerk Name Role Phone Elsewhere, Pcp Primary Care Provider Unavailabl e Source Comments Patient records contain information from all sites at [facility]. For routine questions regarding patient records, call [phone] during business hours, M-F 8:00 AM - 5:00 PM Central Time. Record requests for emergency care only can be directed to [phone] at any time.[facility] Allergies Active Allergy Reactions Criticality Noted [...] drink = 0.6 oz pur e alcohol) [facility] Utilities Answer Date Recorded In the past 12 months has e [employer], gas, oil, or water [email or web address] threatened to shut off services in your [...] How often do you attend chur or yarsani services? More than 4 times per year 02/01/2022 Do you belong to any clubs o r organizations such as buddhist groups, unions, fraternal or athletic groups, or [...] and heating? Not hard at all 02/01/2022 [facility] of Occupat ional Health - Occupational Stress [...] your living situation today? I have a [facility] place to live 05/14/2023 Education Answer Date [...] Comments Blood Pressure 144/83 04/24/2022 1:00 PM HAND WOOD SANDER Pulse 53 04/24/2022 1:15 PM HAND WOOD SANDER Temperature 36.5 ??C (97.7 ??F) 04/24/2022 2:28 PM CS T Respiratory Rate 12 04/24/2022 1:15 PM HAND WOOD SANDER Oxygen Saturation 96% 04/24/2022 1:15 PM HAND WOOD SANDER Inhaled Oxygen Concentration - - Weight 96.1 kg (211 lb 13.8 oz) 04/24/2022 7:48 AM HAND WOOD SANDER Height - - Body Mass Index - [...] this topic Medical Devices Implanted Type Area Awning Installer Device Identifier Shelf Expiration Date Model / Serial / Lot Grft Ost Fill Chp 5cc - [id number] - [id number] Implanted:Qty : 1 on 04/24/2022 by Michael Unger D.O., M.S. at [facility] [employer] 04/19/2026 [id number] / [id number] / Grft Ostsel Pty 1cc - [id number] - [id number] Implanted:Qty : 1 on 04/24/2022 by Michael Unger D.O., M.S. at [facility] [employer] 11/02/2024 195032 / [id number] / Scrw Lck 2.4x16 - [id number] Implanted:Qty : 3 on 04/24/2022 by Michael Unger D.O., M.S. at [facility] Hardware e.g. pins/screws/ rods Right: Wrist [employer] [id number] / / Scrw Lck 2.4x10 - [id number] Implanted:Qty : 1 on 04/24/2022 by Michael Unger D.O., M.S. at [facility] Hardware e.g. pins/screws/ rods Right: Wrist [employer] [id number] / / Plt Wrst Cup Fsn 10h 18 - [id number] Implanted:Qty : 1 on 04/24/2022 by Michael Unger D.O., M.S. at [facility] Hardware e.g. pins/screws/ rods Right: Wrist [employer] FC10 / / Scrw Lck 2.4x12 - [id number] Implanted:Qty : 3 on 04/24/2022 by Michael Unger D.O., M.S. at [facility] Hardware e.g. pins/screws/ rods Right: Wrist [employer] [id number] / / Scrw Lck 2.4x14 - [id number] Implanted:Qty : 3 on 04/24/2022 by Michael Unger D.O., M.S. at [facility] Hardware e.g. pins/screws/ rods Right: Wrist [employer] [id number] / / Mesh Or Patch Mesh or Patch Right: Abdomen Description:hernia Misc Other Misc Other Eye Description:cataracts [employer] Granules Implanted:Qty : 1 on 04/24/2022 by Michael Unger D.O., M.S. at [facility] Orthopedic Other [employer] [id number] 06/19/2024 [id number] / / [id number] [employer] Ganules Implanted:Qty : 1 on 04/24/2022 by Michael Unger D.O., M.S. at [facility] Orthopedic Other [employer] [id number] 06/19/2024 09844 / / [id number] Procedures Procedure Name Priority Date/Time Associated Diagnosis Comments BASIC METABOLIC PANEL, S/P Routine 04/03/2022 11:05 AM HAND WOOD SANDER Preanesthetic Medical Exam from Last 3 Months or Most Recently Relevant to Health Maintenance Results * (ABNORMAL) Basic Metabolic Panel (04/03/2022 11:05 AM HAND WOOD SANDER) Potassium, S 4.2 3.6 - 5.2 mmol/L 04/03/2022 12:06 PM HAND WOOD SANDER DTL Sodium, S 142 135 - 145 mmol/L 04/03/2022 12:06 PM HAND WOOD SANDER DTL Chloride, S 105 98 - 107 mmol/L 04/03/2022 12:06 PM HAND WOOD SANDER DTL Bicarbonate, S 30(H) 22 - 29 mmol/L 04/03/2022 12:06 PM HAND WOOD SANDER DTL Anion Gap 7 7 - 15 04/03/2022 12:06 PM HAND WOOD SANDER DTL BUN (Blood Urea Nitrogen), S 21 8 - 24 mg/dL 04/03/2022 12:06 PM HAND WOOD SANDER DTL Creatinine 1.31 0.74 - 1.35 mg/dL 04/03/2022 12:06 PM HAND WOOD SANDER DTL Estimated GFR (eGFR) 59(L) >=60 mL/min/BSA 04/03/2022 12:06 PM HAND WOOD SANDER DTL Comment: Estimated GFR calculated using the 2020 CKD_EPI creatinine equation. Calcium, Total, S 9.1 8.8 - 10.2 mg/dL 04/03/2022 12:06 PM HAND WOOD SANDER DTL Glucose, S 95 70 - 140 mg/dL 04/03/2022 12:06 PM HAND WOOD SANDER DTL Blood (Blood, Venous) 04/03/2022 11:05 AM HAND WOOD SANDER 04/03/2022 11:44 AM HAND WOOD SANDER us Marie Vallecillo APRN, C.N.P. LAB BLOOD ADD-ON F inal Result [facility] [address] [place] [address], [facility] DTL [facility] [address] [place] [address] from Last 3 Months or Most Recently Relevant to Health Maintenance Insurance [facility] [place] [address] [facility] MEDICARE Care Teams Military Pay Clerk Relationship Specialty Start Date End Date Elsewhere, Pcp PCP - General Internal Medicine 04/24/22
--- OUTSIDE RECORDS SUMMARY | 2024-02-27 14:54 | XMS_ITS | Clinical Summary ---
Author Organization [facility] Address [place], [place] [address] Care Team Providers Care Pipe Coremaker Name Role Phone Guillaume Eason MD Primary Care Provider [phone] Allergies No known active allergies Medications Medication [...] Name Administration Dates Next Due COVID-19 vaccine ([employer] NTIntoloop 30mcg/0.3mL) PF, MDV 02/16/2021,07/05/2020,06/14/2020 Influenza, IIV3 (Age [...] Comments Blood Pressure 137/76 03/25/2021 7:51 AM SUBSTATION SUPERINTENDENT Pulse 93 03/25/2021 7:51 AM SUBSTATION SUPERINTENDENT Temperature 36.9 ??C (98.5 ??F) 03/25/2021 7:51 AM CS T Respiratory Rate 16 03/25/2021 10:00 AM SUBSTATION SUPERINTENDENT Oxygen Saturation 91% 03/25/2021 10:00 AM SUBSTATION SUPERINTENDENT Inhaled Oxygen Concentration - - Weight 95.7 kg (211 lb) 03/24/2021 10:00 AM SUBSTATION SUPERINTENDENT Height 182.9 cm (6') 03/24/2021 10:00 AM SUBSTATION SUPERINTENDENT Body Mass Index 28.62 03/24/2021 10:00 AM SUBSTATION SUPERINTENDENT Plan of Treatment Upcoming Encounters Date Type Department Care Team (Late st Contact Info) Description 02/27/2024 3:00 PM SUBSTATION SUPERINTENDENT Orders Only [facility] [address] [place] [address] Health Maintenance Due Date Last Done Comments [...] CDT ANTI HCV Routine 05/31/2014 9:01 AM SUBSTATION SUPERINTENDENT Need for hepatitis C screening test LIPID PANEL W REFLEX MEASURED LDL Routine 05/31/2014 9:01 AM SUBSTATION SUPERINTENDENT HTN (hypertension), benign from Last 3 Months [...] reponse to care. [facility] and nursing notes for moderate sedation details. Total physician intraservice time was 15 minutes. Sammy Flores MD 02/09/2020 12:02:53 PM This report has been signed electronically. Note Initiated On: 02/09/2020 11:06 AM Procedure Code(s): --- Professional --- 34874, Colonoscopy, flexible; diagnostic, including collection of specimen(s) bybrushing or washing, when performed (separateprocedure) Diagnosis Code(s): --- Professional --- Z86.010, Personal history of colonicpolyps K57.30, Diverticulosis of large intestine without perforation or abscess withoutbleeding CPT copyright 2019 [employer]. All rights reserved. The codes documented in this report are preliminary and upon car blocker reviewmay be revised to meet current compliance requirements. Scope In: 11:43:49 AM Scope Withdrawal Time 0 hours 8 minutes 0 seconds Scope Out: 11:55:54 AM Sammy Flores MD PROCEDURE ORD * (ABNORMAL) LIPID PANEL W REFLEX MEASURED LDL (05/31/2014 9:01 AM SUBSTATION SUPERINTENDENT) CHOLESTEROL,TOTAL 174 100 - 199 mg/dL 05/31/2014 9:39 AM [facility] TRIGLYCERIDES 140 <150 mg/dL 05/31/2014 9:39 AM [facility] HDL CHOLESTEROL 36(L) >40 mg/dL 5 9:39 AM [facility] NON-HDL CHOLESTEROL 138 <145 mg/dl 05/31/2014 9:39 AM SUBSTATION SUPERINTENDENT [facility] CHOL/HDL RATIO 4.83(H) <4.50 05/31/2014 9:39 AM SUBSTATION SUPERINTENDENT [facility] LDL CHOLESTEROL 110 <=130 mg/dL 05/31/2014 9:39 AM SUBSTATION SUPERINTENDENT [facility] PATIENT STATUS FASTING 05/31/2014 9:39 AM SUBSTATION SUPERINTENDENT [facility] Blood specimen (specimen) BLOOD SPECIMEN / Unknown Venipuncture / Unknown 05/31/2014 9:01 AM SUBSTATION SUPERINTENDENT 05/31/2014 9:01 AM SUBSTATION SUPERINTENDENT Kimberly Dominique DO CHEMISTRY [facility] [address] [place] [address], * ANTI HCV [30870.2] (05/31/2014 9:01 AM SUBSTATION SUPERINTENDENT) HEPATITIS C ANTIBODY Non-Reacti ve Non-Reacti ve 05/31/2014 2:09 PM SUBSTATION SUPERINTENDENT [facility] Blood specimen (specimen) BLOOD SPECIMEN / Unknown Venipuncture / Unknown 05/31/2014 9:01 AM SUBSTATION SUPERINTENDENT 05/31/2014 9:01 AM SUBSTATION SUPERINTENDENT Narrative [facility] - 05/31/2014 2:09 PM SUBSTATION SUPERINTENDENT Antibodies to HCV not detected; does not exclude the possibility of exposure to HCV. Kimberly Dominique DO SEND OUTS [facility] [address] [place] [address], [place] from Last 3 Months or Most Recently Relevant to Health Maintenance Advance Directives * Full Code (Latest Code Status on File) Date Activated Date Inactivated Comments 03/24/2021 9:36 AM 03/25/2021 6:55 PM Question Answer Comments Code Status Discussion: Unable to Assess Preferences, Provider to review later Care Teams Pipe Coremaker Relationship Specialty Start Date End Date Guillaume Eason MD [address] [place] [address] PCP - General Family Practice 12/15/19
--- OUTSIDE RECORDS SUMMARY | 2024-02-27 14:54 | XMS_ITS | Encounter Summary ---
Author Organization [facility] Address [address] [place] [address] Care Team Providers Care 8Th Grade Teacher Name Role Phone Elsewhere, Pcp Primary Care Provider Unavailabl e Encounter Details Date Type Department Care Team (Late st Contact Info) Description 05/14/2023 Orders Only Department of Orthopedic Surgery in [place], [place] [address] [place] [address] [facility], Provider, Pain Ankle Bilateral Social History Tobacco Use Types Packs/Day Years Used Date Smoking Tobacco: Never Smokeless Tobacco: Never Alcohol Use Standard Drinks/Week Comments Yes 5 (1 standard drink = 0.6 oz pur e alcohol) [facility] Utilities Answer Date Recorded In the past 12 months has e electric, gas, oil, or water [employer] threatened to shut off services in your [...] often do you attend chur ch or latter day services? More than 4 times per year 02/01/2022 Do you belong to any clubs o r organizations such as jewish groups, unions, fraternal or athletic groups, or [...] and heating? Not hard at all 02/01/2022 [facility] of Occupat ional Health - Occupational [...] your living situation today? I have a [facility] place to live 05/14/2023 Education Answer Date [...] Bilateral documented in this encounter Care Teams 8Th Grade Teacher Relationship Specialty Start Date End Date Elsewhere, Pcp PCP - General Internal Medicine 04/24/22 documented as of this encounter
[2024-02-27 15:45] VITALS: BP 144/74; PULSE 84
--- NOTE | 2024-02-27 16:11 | W.PM.STED ---
Stress Test Note Date Date Seen: 02/27/24 Date of test: 02/27/24 Providers Referring provider: Tiara Grimm Primary care provider: Guillaume Eason Stress test physician: Annia Brady Stress Test Note Stress test ordered: Stress Echo Indication for test: Dyspnea Stress test medicine: None Results discussion: Resting EKG: Sinus rhythm, 64 beats per minute Resting blood pressure: 129/84 Stress test: Patient was consented on stress test ordered. He proceeded on the treadmill following standard [place] protocol. Patient was able to exercised to 9 minutes 35 seconds needing to stop due to shortness of breath and reaching exercise capacity. This was equivalent of 11.1 Mets. He had a maximum heart rate of 136 beats per minute which was 106% of a calculated target heart rate of 128. He had a maximal blood pressure tested during exercise the 140/88. Rate pressure product is 19,040. There was no arrhythmia, no evidence of any diagnostic ischemia. Patient had no chest pain, did not exhibit any significant shortness of breath that seemed to be out of proportion to the level of activity. Await echo images to couple this for a full formal diagnostic. Impression: Subjectively negative, objectively negative EKG portion of this stress echo. Follow up suggested: Patient was discharged home in stable condition. Will await final formal report from his ordering physician.
== END 2024-02-27 14:47 | disposition home or self-care (01) ==
LOC: STRESS 14:47
PROVIDERS: PCP Family Medicine; Visit Provider Emergency Medicine
DX: R06.09 Other forms of dyspnea (principal)
CPT/HCPCS: 93016; 93325; 93351

== ENCOUNTER 2024-03-04 12:55 | Outpatient (CLI) | payer MEDICARE, BC, SELFPAY ==
--- OUTSIDE RECORDS SUMMARY | 2024-03-04 12:58 | XMS_ITS | Encounter Summary ---
Author Organization [facility] Address [address] [place] [address] Care Team Providers Care Child Life Assistant Name Role Phone Elsewhere, Pcp Primary Care Provider Unavailabl e Encounter Details Date Type Department Care Team (Late st Contact Info) Description 05/14/2023 Orders Only Department of Orthopedic Surgery in [place], [place] [address] [place] [address] [facility], Provider, Pain Ankle Bilateral Social History Tobacco Use Types Packs/Day Years Used Date Smoking Tobacco: Never Smokeless Tobacco: Never Alcohol Use Standard Drinks/Week Comments Yes 5 (1 standard drink = 0.6 oz pur e alcohol) [facility] Utilities Answer Date Recorded In the past 12 months has e electric, gas, oil, or water [employer] threatened to shut off services in your [...] and heating? Not hard at all 02/01/2022 [facility] of Occupat ional Health - Occupational Stress [...] your living situation today? I have a [facility] place to live 05/14/2023 Education Answer [...] Bilateral documented in this encounter Care Teams Child Life Assistant Relationship Specialty Start Date End Date Elsewhere, Pcp PCP - General Internal Medicine 04/24/22 documented as of this encounter
--- OUTSIDE RECORDS SUMMARY | 2024-03-04 12:58 | XMS_ITS | Clinical Summary ---
Author Organization [facility] Address [place], [place] [address] Care Team Providers Care Plant Custodian Name Role Phone Guillaume Eason MD Primary Care Provider [phone] Allergies No known active allergies Medications Medication [...] Date Resolved Date S/P colonoscopy 01/02/2002 07/08/2014 Encounters Date Type Department Care Team Description 02/27/2024 3:00 PM ER MANAGER Orders Only [facility] [address] [place] [address] 2 scans: (2-Ord) ECHO STRESS EXERCISE WO CONTRAST W COLOR W LTD DOPPLER ([id number]) from Last 3 Months Immunizations Name Administration Dates Next Due COVID-19 vaccine ([email or web address] [employer] 30mcg/0.3mL) PFES 02/16/2021,07/05/2020,06/14/2020 Influenza, IIV3 (Age >=3 years) 04/18/2012,03/17 [...] Comments Blood Pressure 137/76 03/25/2021 7:51 AM ER MANAGER Pulse 93 03/25/2021 7:51 AM ER MANAGER Temperature 36.9 ??C (98.5 ??F) 03/25/2021 7:51 AM CS T Respiratory Rate 16 03/25/2021 10:00 AM ER MANAGER Oxygen Saturation 91% 03/25/2021 10:00 AM ER MANAGER Inhaled Oxygen Concentration - - Weight 95.7 kg (211 lb) 03/24/2021 10:00 AM ER MANAGER Height 182.9 cm (6') 03/24/2021 10:00 AM ER MANAGER Body Mass Index 28.62 03/24/2021 10:00 AM ER MANAGER Plan of Treatment Upcoming Encounters Date Type Department Care Team (Late st Contact Info) Description 03/04/2024 1:00 PM ER MANAGER Ancillary Procedure [facility] [address] [place] [address] Health Maintenance Due Date Last Done Comments [...] Procedure Name Priority Date/Time Associated Diagnosis Comments ECHO STRESS EXERCISE WO CONTRAST W COLOR W LTD DOPPLER Routine 02/27/2024 3:40 PM ER MANAGER Other forms of dyspnea COLONOSCOPY 02/09/2020 11:06 AM CDT ANTI HCV Routine 05/31/2014 9:01 AM ER MANAGER Need for hepatitis C screening test LIPID PANEL W REFLEX MEASURED LDL Routine 05/31/2014 9:01 AM ER MANAGER HTN (hypertension), benign from Last 3 Months or Most Recently Relevant to Health Maintenance Results * ECHO STRESS EXERCISE WO CONTRAST W COLOR W LTD DOPPLER (02/27/2024 3:40 PM ER MANAGER) AORTIC VALVE MEAN PG 5 mmHg PEAK TR VELOCITY 2.2 m/s LVEDD 4.4 cm EJECTION FRACTION 60 - 65% Anatomical Region Laterality Modality Ultrasound 02/27/2024 2:57 PM ER MANAGER Narrative 02/27/2024 4:08 PM ER MANAGER STRESS ECHOCARDIOGRAM ARIELLA BURTONER ?Accession#: ?? [id number] : ?1955 68 years Study Date: ?? 02/27/2024 2:57:14 PM Gender: M ? BP: ? 129/84 mmHg Height: 180.00 cm ? BSA: ?2.15 m? ? ? Weight: 95.00 kg ?Tech: ? MCK ?Referring MD: TIARA GRIMM Site: ? [facility] Reading Location: Mobile-OP Patient Location: Outpatient. Procedure: Stress Echo, Limited 2D , Color Doppler and Limited Spectral Doppler. Josesito stress echo. Indication for study: Dyspnea Cardiac Rhythm: Regular.Study quality: Technically limited. Imaging limitations: This study was subject to imaging limitations due to a prominent lung artifact. Final Impressions: 1. Technically limited exam. 2. Maximum stress test with 89.6% of age predicted maximum heart rate achieved. 3. During stress exam the patient developed no significant symptoms. 4. See separate report for EKG interpretation. 5. Post stress, normal left ventricular size, increased global systolic function with an estimated EF of 70 to 75%. 6. Negative stress echo for ischemia. 7. At rest there was normal left ventricular size and systolic function. 8. Mildly enlarged left atrium. 9. The aortic valve is trileaflet and sclerotic, no stenosis and trivial regurgitation. 10. The ascending aorta is mildly dilated with a maximal diameter of 3.9 cm. Stress Data: ? HR ?Systolic Diastolic Time Duration Minutes Seconds Baseline 59 bpm ?129 ?84 mmHg ?9 :34 ? Peak ? 134 bpm ?? 140 ?88 mmHg Max Pred HR ?150 % of Max ? 90% Double Product [id number] Echo Findings:This is a negative stress echo test for ischemia. Post stress, normal left ventricular size, increased global systolic function with an estimated EF of 70 to 75%. LV regional wall motion abnormalities are not present post exercise. EKG:See separate report for EKG interpretation. Exam Protocol:The patient presents with no significant symptoms at baseline. The patient exercised 9 min 34 sec to stage IV according to the Josesito stress echo protocol. Test terminated due to fatigue. 13.5 METS were achieved. The patient achieved a heart rate of 134 bpm which is 89.6% of maximum predicted heart rate. Maximum systolic blood pressure was 140 [place] [address]. Maximum stress test with 89.6% of age predicted maximum heart rate achieved. The blood pressure response was normal. The patient developed no significant symptoms during the stress exam. Low (less than 1% annual mortality rate) non invasive risk stratification. LV Wall Scoring: Stage: All segments are normal. REST Stage: All segments are normal. IMPOST Chamber Sizes and Function Normal left ventricular size, normal global systolic function with an estimated EF of 60 - 65%. LV regional wall motion abnormalities are not present. Left atrial size is mildly enlarged. Right ventricular cavity size is normal, global systolic RV function is normal. RV wall thickness is normal. The right atrium is normal. The sinus of Valsalva is normal sized. The ascending aorta is dilated. Valves, RV Pressures and Diastolic Function The aortic valve is trileaflet and sclerotic, no stenosis and trivial regurgitation. The mitral valve is normal in structure, no mitral regurgitation. The tricuspid valve is normal in structure. Tricuspid regurgitation is trace. The tricuspid regurgitant velocity is 2.2 m/s, the estimated right ventricular systolic pressure is 20 mmHg plus right atrial pressure. There is normal estimated pulmonary pressure by tricuspid regurgitation velocity and right atrial pressure. Masses, Effusion, Shunts There is no pericardial effusion. MEASUREMENTS AND CALCULATIONS 2-D Measurements and LV Function: LVID (d) 4.4 cm LV FS% (2D) ?? 43 % LVID (s) 2.5 cm LVOT diameter 2.4 cm IVS (d) ??1.2 cm HR ?59 bpm LVPW (d) 1.3 cm Ao Sinus 3.9 cm Asc Ao ?? 3.9 cm LA ? 4.1 cm Diastology: Mitral E Peak 0.57 m/s A Peak 0.66 m/s E/A ?0.9 DT ? 346 msec Aortic Valve: Vmax ? 1.5 m/s ??EROS (V) ?? 3.06 cm? ? ? AI P 1/2 623 msec VTI ?0.31 m ?? EROS (I) ?? 3.37 cm? ? ? LVOT V max 1.0 m/s ??Max PG ?9 mmHg LVOT VTI ?? 0.23 m ?? Mean PG ?? 5 mmHg SV ? 105 ml ?? Dim Index 0.75 SV index ?? 49 ml/m? ? ? Mitral Valve: MVA ?2.2 cm? ? ? MV P 1/2 100 msec Tricuspid Valve and estimated PA pressures: TR Vmax 2.2 m/s TR maxG 20 mmHg . This study was interpreted by an [facility] accredited facility. CC: HIM (med records) [facility]. ??Final ?? Procedure Note Pacheco Lujan MD - 02/27/2024 STRESS ECHOCARDIOGRAM ARIELLA JAEGER : 1955 68 years Study Date: 02/27/2024 2:57:14 PM Gender: M BP: 129/84 mmHg Height: 180.00 cm BSA: 2.15 m? ? ? Weight: 95.00 kg Tech: [facility] Referring MD: TIARA GRIMM Site: [facility] Reading Location: Mobile-OP Patient Location: Outpatient. Procedure: Stress Echo, Limited 2D , Color Doppler and Limited SpectralDoppler. Josesito stress echo. Indication for study: Dyspnea Cardiac Rhythm: Regular.Study quality: Technically limited. Imaging limitations: This study was subject to imaging limitations due toa prominent lung artifact. Final Impressions: 1. Technically limited exam. 2. Maximum stress test with 89.6% of age predicted maximum heart rateachieved. 3. During stress exam the patient developed no significant symptoms. 4. See separate report for EKG interpretation. 5. Post stress, normal left ventricular size, increased global systolicfunction with an estimated EF of 70 to 75%. 6. Negative stress echo for ischemia. 7. At rest there was normal left ventricular size and systolicfunction. 8. Mildly enlarged left atrium. 9. The aortic valve is trileaflet and sclerotic, no stenosis and trivialregurgitation. 10. The ascending aorta is mildly dilated with a maximal diameter of 3.9cm. Stress Data: HR Systolic Diastolic Time Duration Minutes Seconds Baseline 59 bpm 129 84 mmHg 9 :34 Peak 134 bpm 140 88 mmHg Max Pred HR 150 % of Max 90% Double Product 32004 Echo Findings:This is a negative stress echo test for ischemia. Poststress, normal left ventricular size, increased global systolic functionwith an estimated EF of 70 to 75%. LV regional wall motion abnormalitiesare not present post exercise. EKG:See separate report for EKG interpretation. Exam Protocol:The patient presents with no significant symptoms atbaseline. The patient exercised 9 min 34 sec to stage IV according to the[place] stress echo protocol. Test terminated due to fatigue. 13.5 METS wereachieved. The patient achieved a heart rate of 134 bpm which is 89.6% ofmaximum predicted heart rate. Maximum systolic blood pressure was 140 [place] [address]. Maximum stress test with 89.6% ofage predicted maximum heart rate achieved. The blood pressure response wasnormal. The patient developed no significant symptoms during the stressexam. Low (less than 1% annual mortality rate) non invasive riskstratification. LV Wall Scoring: Stage: All segments are normal. REST Stage: All segments are normal. IMPOST Chamber Sizes and Function Normal left ventricular size, normal global systolic function with anestimated EF of 60 - 65%. LV regional wall motion abnormalities are notpresent. Left atrial size is mildly enlarged. Right ventricular cavitysize is normal, global systolic RV function is normal. RV wall thicknessis normal. The right atrium is normal. The sinus of Valsalva is normalsized. The ascending aorta is dilated. Valves, RV Pressures and Diastolic Function The aortic valve is trileaflet and sclerotic, no stenosis and trivialregurgitation. The mitral valve is normal in structure, no mitralregurgitation. The tricuspid valve is normal in structure. Tricuspidregurgitation is trace. The tricuspid regurgitant velocity is 2.2 m/s, theestimated right ventricular systolic pressure is 20 mmHg plus right atrialpressure. There is normal estimated pulmonary pressure by tricuspidregurgitation velocity and right atrial pressure. Masses, Effusion, Shunts There is no pericardial effusion. MEASUREMENTS AND CALCULATIONS 2-D Measurements and LV Function: LVID (d) 4.4 cm LV FS% (2D) 43 % LVID (s) 2.5 cm LVOT diameter 2.4 cm IVS (d) 1.2 cm HR 59 bpm LVPW (d) 1.3 cm Ao Sinus 3.9 cm Asc Ao 3.9 cm LA 4.1 cm Diastology: Mitral E Peak 0.57 m/s A Peak 0.66 m/s E/A 0.9 DT 346 msec Aortic Valve: Vmax 1.5 m/s EROS (V) 3.06 cm? ? ? AI P 1/2 623 msec VTI 0.31 m EROS (I) 3.37 cm? ? ? LVOT V max 1.0 m/s Max PG 9 mmHg LVOT VTI 0.23 m Mean PG 5 mmHg SV 105 ml Dim Index 0.75 SV index 49 ml/m? ? ? Mitral Valve: MVA 2.2 cm? ? ? MV P 1/2 100 msec Tricuspid Valve and estimated PA pressures: TR Vmax 2.2 m/s TR maxG 20 mmHg . This study was interpreted by an [facility] accredited facility. CC: [facility]. Final Tiara Grimm MD ECHO ORD * COLONOSCOPY (02/09/2020 11:06 AM CDT) 02/09/2020 11:0 6 AM CDT Narrative Transcriptions Sammy Flores MD - 02/09/2020 12:03 PM CDT Patient Name: Ariella Jaeger Procedure Date: 02/09/2020 Gender: Male Date [...] reponse to care. Please refer to the [facility]' medical record flowsheets and nursing notes for moderate sedation details. Total physician intraservice time was 15 minutes. Sammy Flores MD 02/09/2020 12:02:53 PM This report has been signed electronically. Note Initiated On: 02/09/2020 11:06 AM Procedure Code(s): --- Professional --- 28201, Colonoscopy, flexible; diagnostic, including collection of specimen(s) bybrushing or washing, when performed (separateprocedure) Diagnosis Code(s): --- Professional --- Z86.010, Personal history of colonicpolyps K57.30, Diverticulosis of large intestine without perforation or abscess withoutbleeding CPT copyright 2019 [employer]. All rights reserved. The codes documented in this report are preliminary and upon distribution accounting clerk reviewmay be revised to meet current compliance requirements. Scope In: 11:43:49 AM Scope Withdrawal Time 0 hours 8 minutes 0 seconds Scope Out: 11:55:54 AM Sammy Flores MD PROCEDURE ORD * (ABNORMAL) LIPID PANEL W REFLEX MEASURED LDL (05/31/2014 9:01 AM ER MANAGER) CHOLESTEROL,TOTAL 174 100 - 199 mg/dL 05/31/2014 9:39 AM ER MANAGER [facility] TRIGLYCERIDES 140 <150 mg/dL 05/31/2014 9:39 AM ER MANAGER [facility] HDL CHOLESTEROL 36(L) >40 mg/dL 5 9:39 AM ER MANAGER [facility] NON-HDL CHOLESTEROL 138 <145 mg/dl 05/31/2014 9:[address] [facility] CHOL/HDL RATIO 4.83(H) <4.50 05/31/2014 9:[address] [facility] LDL CHOLESTEROL 110 <=130 mg/dL 05/31/2014 9:[address] [facility] PATIENT STATUS FASTING 05/31/2014 9:39 AM ER MANAGER [facility] Blood specimen (specimen) BLOOD SPECIMEN / Unknown Venipuncture / Unknown 05/31/2014 9:01 AM ER MANAGER 05/31/2014 9:01 AM ER MANAGER Kimberly Dominique DO CHEMISTRY [facility] [address] [place] [address], * ANTI HCV [00309.2] (05/31/2014 9:01 AM ER MANAGER) HEPATITIS C ANTIBODY Non-Reacti ve Non-Reacti ve 05/31/2014 2:09 PM ER MANAGER [facility] Blood specimen (specimen) BLOOD SPECIMEN / Unknown Venipuncture / Unknown 05/31/2014 9:01 AM ER MANAGER 05/31/2014 9:01 AM ER MANAGER Narrative [facility] - 05/31/2014 2:09 PM ER MANAGER Antibodies to HCV not detected; does not exclude the possibility of exposure to HCV. Kimberly Dominique DO [facility] [address] [place] [address], [place] from Last 3 Months or Most Recently Relevant to Health Maintenance Advance Directives * Full Code (Latest Code Status on File) Date Activated Date Inactivated Comments 03/24/2021 9:36 AM 03/25/2021 6:55 PM Question Answer Comments Code Status Discussion: Unable to Assess Preferences, Provider to review later Care Teams Plant Custodian Relationship Specialty Start Date End Date Guillaume Eason MD [address] [place] [address] PCP - General Family Practice 12/15/19
--- OUTSIDE RECORDS SUMMARY | 2024-03-04 12:58 | XMS_ITS | Clinical Summary ---
Author Organization [facility] Address [address] [place] [address] Care Team Providers Care Intermediate School Teacher Name Role Phone Elsewhere, Pcp Primary Care Provider Unavailabl e Source Comments Patient records contain information from all sites at [facility]. For routine questions regarding patient records, call [phone] during business hours, M-F 8:00 AM - 5:00 PM Central Time. Record requests for emergency care only can be directed to [phone] at any time.[facility] Allergies Active Allergy Reactions Criticality Noted [...] drink = 0.6 oz pur e alcohol) [facility] Utilities Answer Date Recorded In the past 12 months has e [employer], gas, oil, or water [employer] threatened to shut off services in your [...] How often do you attend chur or temple services? More than 4 times per year 02/01/2022 Do you belong to any clubs o r organizations such as jainism groups, unions, fraternal or athletic groups, or [...] and heating? Not hard at all 02/01/2022 [facility] - Occupational [...] Comments Blood Pressure 144/83 04/24/2022 1:00 PM [employer] Pulse 53 04/24/2022 1:15 PM [employer] Temperature 36.5 ??C (97.7 ??F) 04/24/2022 2:28 PM CS T Respiratory Rate 12 04/24/2022 1:15 PM [employer] Oxygen Saturation 96% 04/24/2022 1:15 PM [employer] Inhaled Oxygen Concentration - - Weight 96.1 kg (211 lb 13.8 oz) 04/24/2022 7:48 AM [employer] Height - - Body Mass Index - [...] this topic Medical Devices Implanted Type Area Signing Agent Device Identifier Shelf Expiration Date Model / Serial / Lot Grft Ost Fill Chp 5cc - [id number] - [id number] Implanted:Qty : 1 on 04/24/2022 by Michael Unger D.O., M[facility] [employer] 04/19/2026 [id number] / [id number] / Grft Ostsel Pty 1cc - [id number] - [id number] Implanted:Qty : 1 on 04/24/2022 by Michael Unger D.O., M.S. at [facility] [employer] [facility] [employer] 11/02/2024 [id number] / [id number] / Scrw Lck 2.4x16 - [id number] Implanted:Qty : 3 on 04/24/2022 by Michael Unger D.O., M.S. at [facility] Hardware e.g. pins/screws/ rods Right: Wrist [employer] [id number] / / Scrw Lck 2.4x10 - [id number] Implanted:Qty : 1 on 04/24/2022 by Michael Unger D.O., M.S. at [facility] Hardware e.g. pins/screws/ rods Right: Wrist [employer] [id number] / / Plt Wrst Cup Fsn 10h 18 - [id number] Implanted:Qty : 1 on 04/24/2022 by Michael Unger D.O., M.S. at [facility] Hardware e.g. pins/screws/ rods Right: Wrist [employer] [id number] / / Scrw Lck 2.4x12 - [id number] Implanted:Qty : 3 on 04/24/2022 by Michael Unger D.O., M.S. at [facility] Hardware e.g. pins/screws/ rods Right: Wrist [employer] [id number] / / Scrw Lck 2.4x14 - [id number] Implanted:Qty : 3 on 04/24/2022 by Michael Unger D.O., M.S. at [facility] Hardware e.g. pins/screws/ rods Right: Wrist [employer] [id number] / / Mesh Or Patch Mesh or Patch Right: Abdomen Description:hernia Misc Other Misc Other Eye Description:cataracts [employer] Granules Implanted:Qty : 1 on 04/24/2022 by Michael Unger D.O., M.S. at [facility] Orthopedic Other [employer] [id number] 06/19/2024 [id number] / / [id number] [employer] Ganules Implanted:Qty : 1 on 04/24/2022 by Michael Unger D.O., M.S. at [facility] Orthopedic Other [employer] [id number] 06/19/2024 [id number] / / [id number] Procedures Procedure Name Priority Date/Time Associated Diagnosis Comments BASIC METABOLIC PANEL, S/P Routine 04/03/2022 11:05 AM [employer] Preanesthetic Medical Exam from Last 3 Months or Most Recently Relevant to Health Maintenance Results * (ABNORMAL) Basic Metabolic Panel (04/03/2022 11:05 AM [employer]) Potassium, S 4.2 3.6 - 5.2 mmol/L 04/03/2022 12:06 PM [employer] DTL Sodium, S 142 135 - 145 mmol/L 04/03/2022 12:06 PM [employer] DTL Chloride, S 105 98 - 107 mmol/L 04/03/2022 12:06 PM [employer] DTL Bicarbonate, S 30(H) 22 - 29 mmol/L 04/03/2022 12:06 PM [employer] DTL Anion Gap 7 7 - 15 04/03/2022 12:06 PM [employer] DTL BUN (Blood Urea Nitrogen), S 21 8 - 24 mg/dL 04/03/2022 12:06 PM [employer] DTL Creatinine 1.31 0.74 - 1.35 mg/dL 04/03/2022 12:06 PM [employer] DTL Estimated GFR (eGFR) 59(L) >=60 mL/min/BSA 04/03/2022 12:06 PM [employer] DTL Comment: Estimated GFR calculated using the 2020 CKD_EPI creatinine equation. Calcium, Total, S 9.1 8.8 - 10.2 mg/dL 04/03/2022 12:06 PM [employer] DTL Glucose, S 95 70 - 140 mg/dL 04/03/2022 12:06 PM [employer] DTL Blood (Blood, Venous) 04/03/2022 11:05 AM [employer] 04/03/2022 11:44 AM [employer] us Marie Vallecillo APRN, C.N.P. LAB BLOOD ADD-ON F inal Result [facility] [address] [place] [address], [facility] [place] [address] [place] [address] from Last 3 Months or Most Recently Relevant to Health Maintenance Insurance [facility] [place] [phone] [facility] MEDICARE Care Teams Intermediate School Teacher Relationship Specialty Start Date End Date Elsewhere, Pcp PCP - General Internal Medicine 04/24/22
--- OUTSIDE RECORDS SUMMARY | 2024-03-04 12:58 | XMS_ITS ---
Author Organization [facility] Address [address] [place] [address] Care Team Providers Care Breakfast Server Name Role Phone Unavailable Unavailable Unavailable Surgery Details Not on file Complications Check Surgery Details section. Procedure Estimated Blood Loss Check Surgery Details section. Procedure Findings Check Surgery Details section. Procedure Specimens Taken Check Surgery Details section.
--- OUTSIDE RECORDS SUMMARY | 2024-03-04 12:58 | XMS_ITS | Continuity of Care Document ---
Author Organization [facility], [facility] Address [address] [place] [address] Care Team Providers Care Student Driving Instructor Name Role Phone [facility] Primary Care Provider Assessment No assessment recorded. Plan of Treatment Reminders Order Date Submit Date Provider Last Modified By Organization Details Last Modified Time Details Appointments None recorded. Lab PSA, serum or plasma 2023 024 [email or web address] 4 [facility], [address], [place], [address], 4 17:26:23 Referral None recorded. Procedures None recorded. Surgeries inflatable penile prosthesis, insertion of (SURG) 2023 024 [email or web address] 50 Not available 12:26:08 Imaging None recorded. Medication Orders None recorded. Patient TargetsNo targets recorded. Patient Instructions Encounter Date Encounter Id Patient Instructions Last Modified By Organization Details Last Modified Time 12/16/2023 [id number] Risks discussed included: - 1. Infection - [...] Not Available [facility] [address], [place], [address], 12/16/2023 17:25:51 Result Notes None recorded. Problems Name Problem SNOMED Code Status Onset Date Resolution Date Notes Provider Name and Address Organization Details Recorded Time Malignant tumor of prostate 554665045 Active 2021 prostatect antonio in March 2021. Augusta 3+4, 40% of the gland, positive neurovascu lar invasion left, 6mm positive margin in that location. First PSA negative. Jack Bañuelos MD [address] [place] [address],[address], [place], [address], [facility] 2 10:52:34 Problem Notes None recorded. Procedures Surgical History Date Name Laterality Status Provider Name and Address Organization Details Recorded Time 4 COMPLEX VISIT completed Srini Jaime MD [address] [place] [address],[address], [place], [address], [facility] 12/17/2023 14:46:52 4 Blood Draw/ROOF BOLTER/PSA RESULTS completed Lashaun Matthews [facility] 12/16/2023 17:25:43 3 ROOF BOLTER/blood draw completed Jack Bañuelos MD [address] [place] [address],[address], [place], [address], [facility] 01/31/2023 15:08:36 3 arthrodesis completed Srini Jaime MD [address] [place] [address],[address], [place], [address], [facility] 05/21/2022 16:43:43 2 Blood Draw/ROOF BOLTER/PSA RESULTS completed Kim Gonzalez [facility] 04/05/2022 10:19:04 2 Blood Draw/ROOF BOLTER/PSA RESULTS completed Chelsea Herrmann [facility] 10/09/2021 10:46:34 2 DT Penile Injection Teaching completed Jack Bañuelos MD [address] [place] [address],[address], [place], [address], [facility] 07/31/2021 16:40:32 2 Blood Draw/ROOF BOLTER/PSA RESULTS completed Jack Bañuelos MD [address] [place] [address],[address], [place], [address], [facility] 07/03/2021 10:30:31 1 Edward Catheter Removal completed Maryellen Duron [facility] 04/05/2021 09:48:00 1 PROSTATECTOMY, LAPAROSCOPIC, ROBOTIC (SURG) completed Gloria Deirdre [facility] 03/28/2021 13:21:03 1 Prostate Biopsy Procedure completed Srini Jaime MD [address] [place] [address],[address], [place], [address], [facility] 06/20/2020 10:15:50 0 Colonoscopy completed Axel Orozco MD [address] [place] [address],[address], [place], [address], [facility] 12/20/2020 16:01:08 Imaging Results None recorded. [...] Updated DateTime 12/16/2023 182.88 cm 28.5 kg/m2 79310.4 g Lashaun Matthews [facility] 12/16/2023 16:31:23 Social History Question Answer Notes LastModified by Organizat ion Details LastModified Time Tobacco Smoking Status Never Smoker Axel Orozco MD [address] [facility],[address], [place], [address] 08/18/2020 16:48:06 What Is Your Level Of Alcohol Consumption? Moderate Information not available 07/03/2021 What Is Your Level Of Caffeine Consumption? Moderate Information not available 07/03/2021 Do You Or Have You Ever Used E-cigarettes Or Vape? Never Used Electronic Cigarettes Information not available 09/09/2020 What Was The Date Of Your Most Recent Tobacco Screening? 12/16/2023 [email or web address] Information not available 12/16/2023 Do You Or Have You Ever Used Smokeless Tobacco? Never Used Smokeless Tobacco Information not available 09/09/2020 Do You Use Any Illicit Or Recreational Drugs? No Information not available 07/03/2021 Has Tobacco Cessation Counseling Been Provided? No [email or web address] Information not available 12/16/2023 Do You Or [...] mcg/0.3 mL dose 02/16/2021 completed Anushka hidalgo [facility] 02/08/2023 14:30:24 COVID-19, mRNA, LNP-S, PF, 30 mcg/0.3 mL dose 06/14/2020 completed Anushka hidalgo [facility] 02/08/2023 14:30:24 Tdap 03/08/2011 completed Jack Bañuelos MD [address] [place] [address],[address] [place] [address], [address], [facility] 07/03/2021 10:28:35 Pneumococcal conjugate PCV 13 09/29/2018 completed Jack Bañuelos MD [address] [place] [address],[address], [address], [facility] 07/03/2021 10:28:35 pneumococcal polysaccharide PPV23 12/11/2019 completed Jack Bañuelos MD [address] [facility],[address], [place], [address], [facility] 07/03/2021 10:28:35 COVID-19, mRNA, LNP-S, PF, 30 mcg/0.3 mL dose 07/05/2020 [facility] 14:30:24 Influenza, injectable,quadrival ent, preservative free, pediatric 05/04/2013 [facility] 14:30:23 Influenza, MDCK, quadrivalent, PF 02/25/2018 [facility] 14:30:23 Influenza, high-dose, quadrivalent, PF 03/21/2021 [facility] 14:30:23 Tdap 03/21/2021 [facility] 14:30:24 Influenza, high-dose, trivalent, PF 02/06/2019 [facility]23 14:30:24 Influenza, split virus, trivalent, preservative 04/18/2012 [facility] 14:30:24 Influenza, split virus, trivalent, preservative 04/21/2011 [facility] 14:30:24 Influenza, split virus, trivalent, PF 04/24/2016 [facility] 14:30:24 Influenza, split virus, trivalent, PF 04/12/2015 [facility] 14:30:24 Influenza, split virus, quadrivalent, PF 01/25/2017 completed Anushka hidalgo [facility] 02/08/2023 14:30:24 Influenza, split virus, quadrivalent, PF 04/10/2014 completed Anushka Blaine gwen [facility] 02/08/2023 14:30:24 Influenza, high-dose, quadrivalent, PF 03/22/2022 completed Anushka Blaine gwen [facility] 02/21/2023 12:10:30 Influenza, adjuvanted, quadrivalent, PF 01/18/2023 completed Anushka Blaine gwen [facility] 02/21/2023 12:11:00 COVID-19, mRNA, LNP-S, PF, 30 mcg/0.3 mL dose, eli-sucrose 11/23/2021 completed Anushka Blaine hidalgo [facility] 02/21/2023 12:10:30 Past Encounters Encounter ID Performer Location Encounter Start Date Encounter Closed Date Diagnosis/Indication Diagnosis SNOMED-CT Code Diagnosis ICD10 Code [id number] Srini Jaime MD [facility] [address] [place] [address] 12/16/2023 15:36:59 12/18/2023 11:05:57 Malignant tumor of prostate 305342601 C61 Secondary erectile dysfunction 948940416 N52.39 Health Concerns Section Related Observation LastModified by Organization Detai ls LastModified Time None Recorded Concern Status LastModified by Organization Details LastModified Time None Recorded Payers Encounter Date Sequence Insurance Name Policy Number Policy Vidal Covered Member ID Vidal Member ID Guarantor Name 12/16/2023 1 [place] [employer] [place] - MEDICARE COST [id number] Lalito Jaeger [id number] Lalito Jaeger Notes Date Note Type Note Provider Name and Address Organization Details Recorded Time 12/16/2023 text/html One year out fro m a prostatectomy for [place] 7 cancer.His continence is good with no use for pads. This took about two months to recover after surgery.Sildenafil has not helped with ED. Cialis works better. He tried Trimix but he was very sensitive to it. He's also needed ice and pseudafed. Since then, he's had a downward curve. 05/21/2022 (Yeni):Here for follow up Erectile dysfunction following radical prostatectomy. Has been using Trimix but has been dealing with priapism, thankfully responsive to psuedofed. 12/16/2023:Here for follow up Erectile dysfunction following radical prostatectomy. No longer responding to Tri-Mix, would like to consider penile prosthesis. PSA undetectable. Srini Jaime MD [address] [facility],[address], [place], [address], [facility] 12/17/2023 14:52:12
--- OUTSIDE RECORDS SUMMARY | 2024-03-04 12:58 | XMS_ITS | Referral Summary ---
Author Organization [facility] Address [address] [place] [address] Care Team Providers Care Coating Mixer Supervisor Name Role Phone Elsewhere, Pcp Primary Care Provider Unavailabl e Source Comments Patient records contain information from all sites at [facility]. For routine questions regarding patient records, call [phone] during business hours, M-F 8:00 AM - 5:00 PM Central Time. Record requests for emergency care only can be directed to [phone] at any time.[facility] Allergies Active Allergy Reactions Criticality Noted Date [...] drink = 0.6 oz pur e alcohol) [facility] Utilities Answer Date Recorded In the past 12 months has e [employer], gas, oil, or water [employer] threatened to shut off services in your [...] often do you attend chur ch or yazidi services? More than 4 times per year 02/01/2022 Do you belong to any clubs o r organizations such as islam groups, unions, fraternal or athletic groups, or [...] and heating? Not hard at all 02/01/2022 [facility] - Occupational [...] your living situation today? I have a [facility] place to live 05/14/2023 Education Answer [...] Comments Blood Pressure 144/83 04/24/2022 1:00 PM [facility] Pulse 53 04/24/2022 1:15 PM [facility] Temperature 36.5 ??C (97.7 ??F) 04/24/2022 2:28 PM CS T Respiratory Rate 12 04/24/2022 1:15 PM [facility] Oxygen Saturation 96% 04/24/2022 1:15 PM [facility] Inhaled Oxygen Concentration - - Weight 96.1 kg (211 lb 13.8 oz) 04/24/2022 7:48 AM [facility] Height - - Body Mass Index - - Plan of Treatment Not on file Medical Devices Implanted Type Area Railroad Brake Operator Device Identifier Shelf Expiration Date Model / Serial / Lot Grft Ost Fill Chp 5cc - [id number] - [id number] Implanted:Qty : 1 on 04/24/2022 by Michael Unger D.O., M.S. at [facility] [employer] 04/19/2026 [id number] / [id number] / Grft Ostsel Pty 1cc - [id number] - [id number] Implanted:Qty : 1 on 04/24/2022 by Michael Unger D.O., M.S. at [facility] 11/02/2024 [id number] / [id number] / Scrw Lck 2.4x16 - [id number] Implanted:Qty : 3 on 04/24/2022 by Michael Unger D.O., M.S. at [facility] Hardware e.g. pins/screws/ rods Right: Wrist [employer] [id number] / / Scrw Lck 2.4x10 - [id number] Implanted:Qty : 1 on 04/24/2022 by Michael Unger D.O., M.S. at [facility] Hardware e.g. pins/screws/ rods Right: Wrist [employer] [id number] / / Plt Wrst Cup Fsn 10h 18 - [id number] Implanted:Qty : 1 on 04/24/2022 by Michael Unger D.O., M.S. at [facility] Hardware e.g. pins/screws/ rods Right: Wrist [employer] [id number] / / Scrw Lck 2.4x12 - [id number] Implanted:Qty : 3 on 04/24/2022 by Michael Unger D.O., M.S. at [facility] Hardware e.g. pins/screws/ rods Right: Wrist [employer] [id number] / / Scrw Lck 2.4x14 - [id number] Implanted:Qty : 3 on 04/24/2022 by Michael Unger D.O., M.S. at [facility] Hardware e.g. pins/screws/ rods Right: Wrist [employer] [id number] / / Mesh Or Patch Mesh or Patch Right: Abdomen Description:hernia Misc Other Misc Other Eye Description:cataracts [employer] Granules Implanted:Qty : 1 on 04/24/2022 by Michael Unger D.O., M.S. at [facility] Orthopedic Other [employer] [id number] 06/19/2024 [id number] / / [id number] [employer] Ganules Implanted:Qty : 1 on 04/24/2022 by Michael Unger D.O., M.S. at [facility] Orthopedic Other [employer] [id number] 06/19/2024 [id number] / / [id number] Procedures Procedure Name Priority Date/Time Associated Diagnosis Comments BASIC METABOLIC PANEL, S/P Routine 04/03/2022 11:05 AM [facility] Preanesthetic Medical Exam from Last 3 Months or Most Recently Relevant to Health Maintenance Results * (ABNORMAL) Basic Metabolic Panel (04/03/2022 11:05 AM [facility]) Potassium, S 4.2 3.6 - 5.2 mmol/L 04/03/2022 12:06 PM [facility] DTL Sodium, S 142 135 - 145 mmol/L 04/03/2022 12:06 PM [facility] DTL Chloride, S 105 98 - 107 mmol/L 04/03/2022 12:06 PM [facility] DTL Bicarbonate, S 30(H) 22 - 29 mmol/L 04/03/2022 12:06 PM [facility] DTL Anion Gap 7 7 - 15 04/03/2022 12:06 PM [facility] DTL BUN (Blood Urea Nitrogen), S 21 8 - 24 mg/dL 04/03/2022 12:06 PM [facility] DTL Creatinine 1.31 0.74 - 1.35 mg/dL 04/03/2022 12:06 PM [facility] DTL Estimated GFR (eGFR) 59(L) >=60 mL/min/BSA 04/03/2022 12:06 PM [facility] DTL Comment: Estimated GFR calculated using the 2020 CKD_EPI creatinine equation. Calcium, Total, S 9.1 8.8 - 10.2 mg/dL 04/03/2022 12:06 PM [facility] DTL Glucose, S 95 70 - 140 mg/dL 04/03/2022 12:06 PM [facility] DTL Blood (Blood, Venous) 04/03/2022 11:05 AM [facility] 04/03/2022 11:44 AM [facility] us Marie Vallecillo APRN, C.N.P. LAB BLOOD ADD-ON F inal Result [facility] [address] [place] [address], [place] DTL Formerly named [facility] [address] [place] [address] from Last 3 Months or Most Recently Relevant to Health Maintenance Insurance [facility] [id number] MEDICARE Care Teams Coating Mixer Supervisor Relationship Specialty Start Date End Date Elsewhere, Pcp PCP - General Internal Medicine 04/24/22
== END 2024-03-04 12:56 | disposition home or self-care (01) ==
LOC: RAD 12:56
PROVIDERS: PCP Family Medicine; Visit Provider Emergency Medicine
DX: R06.09 Other forms of dyspnea (principal); I51.7 Cardiomegaly; I35.1 Nonrheumatic aortic (valve) insufficiency
CPT/HCPCS: 93306

== ENCOUNTER 2025-03-23 08:10 | Outpatient (CLI) | payer MEDICARE, BC, SELFPAY | END 2025-03-23 08:11 | disposition home or self-care (01) | LOC: NFLDREF 03-26 09:14 | PROVIDERS: PCP Family Medicine; Referring Provider Family Medicine; Visit Provider Family Medicine | DX: I10 Essential (primary) hypertension (principal); E78.00 Pure hypercholesterolemia, unspecified | CPT/HCPCS: 80048; 80061 ==